=== PATIENT | male | born 1940 | race Caucasian/White ===

== ENCOUNTER 2016-06-02 02:41 | Emergency (ER) | payer MEDICARE ==
[2016-06-02 03:28] LABS: Hematocrit 42.4 % (42.0-52.0); Hemoglobin 14.3 gm/dL (13.5-18.0); Mean Cell Volume 93.2 fl (78-100); Mean Corpuscular Hemoglobin 31.4 pg (27-31); Mean Corpuscular Hgb Conc 33.7 g/dl (32-36); Neutrophil # 7.4 K/mm3 (1.3-6.0); Neutrophil % 77.4 % (42-75.0); Platelet Count 240 K/mm3 (150-450); Red Blood Count 4.55 M/mm3 (4.7-6.0); Red Cell Distribution Width 12.6 % (11.5-14.0); White Blood Count 9.5 K/mm3 (4.0-10.5)
[2016-06-02 03:49] LABS: Albumin * 3.3 gm/dl (3.4-5.0); Anion Gap 11.8 mmol/L (6.8-13.8); BUN/Creatinine Ratio 12.1 (9.0-21.6); Bilirubin, Total 0.6 mg/dL (0.0-1.1); Ca. Corrected For Albumin 8.7 mg/dL (8.4-10.2); Calcium * 8.5 mg/dL (7.9-10.9); Carbon Dioxide 27.5 mmol/L (24-32.6); Potassium 3.3 mmol/L (3.4-4.6); Total Protein 6.7 gm/dL (6.2-8.2)
[2016-06-02] MEDS ORDERED: DIPHTH,PERTUSS(ACELL),TET VAC 0.5 ML VIAL IM ONE ×2 (04:08→04:23)
--- NOTE | 2016-06-02 04:20 | ERNOTE ---
Trauma/Assault HPI - Narrative Date of Service: 06/02/16 - General Stated Complaint: FALL Time Seen by Provider: 06/02/16 02:45 Source: patient, family - Immun/Allergies/Home Medications Immunizations: IMMUNIZATION HX Immunizations Up to Date No History of Influenza Vaccine No Hx Pneumococcal Vaccination No Allergies/Adverse Reactions: Allergies No Known Drug Allergies Allergy (Verified 06/02/16 02:58) Home Medications: HOME MEDICATIONS Aspirin [Aspirin EC] 81 mg PO DAILY 06/02/16 [Last Taken Unknown] Lisinopril/Hydrochlorothiazide [Zestoretic 20-25 mg Tablet] 1 each PO DAILY 01/09 [Last Taken Unknown] - History of Present Illness Narrative: pt states he stumbled and fell tonight when he got up to take the dog out. He stepped out of his back door and stumbled. Denies any headache or dizziness. Has no symptoms except a few abrasions Review of Systems - Review of Systems Constitutional: Present: no symptoms reported EYE: Present: no symptoms reported ENT: Present: no symptoms reported Respiratory: Present: no symptoms reported Cardiology: Present: no symptoms reported Gastrointestinal/Abdominal: Present: no symptoms reported Genitourinary: Present: no symptoms reported Musculoskeletal: Present: no symptoms reported Skin: Present: other - abrasions from fall Neurological: Present: other - patient's states patient's balance has been deteriorating in the past two weeks. - Patient's Past Medical History Patient History - Medical: History Unknown Patient History - Cardiac/Respiratory: Hypertension Patient History - Cancer: History Unknown Patient History - Surgical Procedures: Colonoscopy, T & A Patient History - Other: None - Social History Living Situations: spouse Smoking Status: Former smoker Have you smoked in the past 12 months: No Alcohol Use: heavy Drug Use: none - Immunizations Immunizations Up to Date: No Hx Pneumococcal Vaccination: No History of Influenza Vaccine: No Physical Exam - Physical Exam General Appearance: Present: wd/wn, alert, no apparent distress Eye Exam: Normal inspection: bilateral, PERRL: bilateral, EOMI: bilateral Ears, Nose, Throat: Present: normal ENT inspection Respiratory: Present: no respiratory distress, normal breath sounds, no accessory muscle use, chest nontender, lungs clear Cardiovascular/Chest: Present: regular rate, rhythm, no murmur, normal peripheral pulses Gastrointestinal/Abdominal: Present: normal bowel sounds Extremity Exam: Present: normal inspection, normal range of motion Neurological Exam: Present: alert, other - pt is alert to self and place but NOT to time, he has no dysarthria or ataxia. he is well able to ambulate. he has no focal neurological deficits ED Progress - Results and Orders Patient's Lab Results:: I have reviewed the patient's lab results. - Vital Signs Patient's Vital Signs:: I have reviewed the patient's vital signs. Vital Signs: Vital Signs 06/02/16 02:44 Temperature 36.5 C Pulse Rate 92 Respiratory 14 Rate Blood Pressure 144/82 O2 Sat by Pulse 94 Oximetry - Progress/Reassessment Chief Complaint: Fall Plan - Plan Plan: head CT is negative. Labs are normal. PT's chest Xray is normal. He is stable to be discharged after dressing his abrasions and an Adacel Departure Clinical Impression: Abrasion, Fall (on) (from) other stairs and steps, initial encounter - Departure Disposition: Home self-care Condition: Good Instructions: Fall Prevention in the Home, [id number] Referrals: Matt Rodriguez MD [Primary Care Provider] -
[2016-06-02 04:57] VITALS: BP 138/80
== END 2016-06-02 04:55 | disposition home or self-care (01) ==
LOC: ER 02:41
DX: S20.319A Abrasion of unspecified front wall of thorax, initial encounter (principal); S40.811A Abrasion of right upper arm, initial encounter; W01.0XXA Fall on same level from slipping, tripping and stumbling without subsequent striking against object, initial encounter; Y92.009 Unspecified place in unspecified non-institutional (private) residence as the place of occurrence of the external cause; I10 Essential (primary) hypertension; Z87.891 Personal history of nicotine dependence; Z23 Encounter for immunization
CPT/HCPCS: 36415; 70450; 71010; 80053; 85025; 90471; 90715; 99282; G0481

== ENCOUNTER 2016-07-14 07:25 | Inpatient (IN) | payer MEDICARE ==
--- NOTE | 2016-07-14 07:36 | ERNOTE ---
<Augustin Pisano - Last Filed: 07/14/16 07:54> Neuro HPI ER Record Presenting Symptoms: falling, other - found on the floor this morning Time Seen by Provider: 07/14/16 07:29 Source: EMS Exam Limitations: dementia Immunizations: IMMUNIZATION HX Immunizations Up to Date No History of Influenza Vaccine No Hx Pneumococcal Vaccination No Allergies/Adverse Reactions: Allergies Allergy/AdvReac Type Severity Reaction Status Date / Time No Known Drug Allergies Allergy Verified 07/14/16 07:31 Home Medications: HOME MEDICATIONS Aspirin [Aspirin EC] 81 mg PO DAILY 06/02/16 [Last Taken Unknown] Lisinopril/Hydrochlorothiazide [Zestoretic 20-25 mg Tablet] 1 each PO DAILY 01/09 [Last Taken Unknown] Garlic 200 mg PO DAILY 07/14/16 [Last Taken Unknown] Gluc Workman/Chondro Workman A/Vit C/Mn [Glucosamine 1,500 Complex Cp] 1 each PO DAILY [Last Taken Unknown] Multivitamin [Multivitamins] 1 each PO DAILY 07/14/16 [Last Taken Unknown] - History of Present Illness Narrative: Pt was found on the floor and could not get up this morning. Pt does not know when he fell. Pt vomited sometime since falling Onset: cannot confirm onset Severity: mild Context: fall - Character of Deficits Baseline Cognition: Present: alert but confused Review of Systems - Narrative Narrative: Pt confused and did not admit to much but may not be reliable - Patient's Past Medical History Patient History - Medical: History Unknown Patient History - Cardiac/Respiratory: Hypertension Patient History - Cancer: History Unknown Patient History - Surgical Procedures: Colonoscopy, T & A Patient History - Other: None - Social History Living Situations: spouse Alcohol Use: heavy Drug Use: none - Immunizations Immunizations Up to Date: No Hx Pneumococcal Vaccination: No History of Influenza Vaccine: No Physical Exam - Physical Exam General Appearance: Present: wd/wn, alert, no apparent distress Eye Exam: Normal inspection: bilateral Ears, Nose, Throat: Present: normal except -, other - lips dry with possible dried blood Neck: Present: normal inspection, nontender Respiratory: Present: no respiratory distress, normal breath sounds, chest nontender, lungs clear Cardiovascular/Chest: Present: regular rate, rhythm Gastrointestinal/Abdominal: Present: normal bowel sounds, nontender, nondistended Back Exam: Present: normal inspection, normal range of motion Extremity Exam: Present: normal range of motion, pelvis stable, pedal edema - bilateral Neurological Exam: Present: alert, disoriented to time, disoriented to place Skin Exam: Present: normal color, warm/dry Lymphatic Exam: Present: no adenopathy ED Progress - Transfer of Care Physician Sign Out: Augustin Pisano Receiving Physician: Fred Ortega Pending Results: CT/MRI results, Labs Expected Disposition: Admit Departure Clinical Impression: Syncope Qualifiers: Syncope type: unspecified Qualified Code(s): R55 - Syncope and collapse GI bleeding Qualifiers: GI bleed type/associated pathology: unspecified gastrointestinal hemorrhage type Qualified Code(s): K92.2 - Gastrointestinal hemorrhage, unspecified Alcohol withdrawal Qualifiers: Complication of substance-induced condition: with unspecified complication Qualified Code(s): F10.239 - Alcohol dependence with withdrawal, unspecified - Departure Disposition: [facility] Condition: Good <Fred Ortega - Last Filed: 07/14/16 09:45> Neuro HPI ER Record Date of Service: 07/14/16 Presenting Symptoms: falling, other Source: patient, family - Exam Limitations: no limitations Immunizations: IMMUNIZATION HX Immunizations Up to Date No History of Influenza Vaccine No Hx Pneumococcal Vaccination No - History of Present Illness Narrative: Patient who uses alcohol regularly and stop using alcohol 2 days ago was found in the floor at 03:00am by his . Patient was reported been vomiting blood in the last 48hrs and last week had an event of black stools. Patient has Hx of seizures in the pass and has been having problems with his memory according to his . Patient at the moment denies any pain. Date (Duration): 07/14/16 Time (Timing): 03:00 Onset: gone now, better, >3 hours Severity: mild Context: fall - Character of Deficits New weakness: Present: general (diffuse) Additional Deficits: Present: decrease ability to walk, falling, weakness. Absent: vision problems, impaired speech, difficulty swallowing Baseline Cognition: Present: alert but confused - Patient is having problems with concentration according to Baseline Gait: Present: unable to walk Associated Symptoms: Reports: confused, trouble concentrating, trouble thinking. Denies: fever/chills, sweating, chest pain, neck/back pain, headache , seizure, disoriented, agitated, unresponsive Prior Treament: Reports: recently seen - Patient is been evaluated for dementia. Review of Systems - Review of Systems Constitutional: Present: weakness, malaise. Absent: fever, chills, diaphoresis EYE: Present: no symptoms reported ENT: Present: no symptoms reported Respiratory: Absent: shortness of breath, cough, orthopnea, wheezing Cardiology: Present: syncope. Absent: chest pain, palpitations, edema, claudication Gastrointestinal/Abdominal: Present: vomiting - blood, other - Patient has been with black stools. Absent: nausea, diarrhea, constipation, abdominal pain, eating less Genitourinary: Present: no symptoms reported. Absent: hematuria Musculoskeletal: Present: no symptoms reported Skin: Present: no symptoms reported Neurological: Present: weakness, numbness. Absent: anxiety, depressed, headache , dizziness/light-headedness, seizure, tremors Endocrine: Present: no symptoms reported Hematologic/Lymphatic: Present: no symptoms reported Psych: Present: no symptoms reported All Other Systems: All systems neg except as marked - Social History Alcohol Use: heavy Physical Exam - Physical Exam General Appearance: Present: wd/wn, alert, no apparent distress Eye Exam: Normal inspection: bilateral, PERRL: bilateral, EOMI: bilateral Ears, Nose, Throat: Present: normal pharynx, dry mucous membranes, other. Absent: pharyngeal erythema, pharyngeal swelling Neck: Present: normal inspection, nontender, full range of motion, other - No pain on the posterior neck area on palpation Respiratory: Present: no respiratory distress, normal breath sounds, chest nontender, lungs clear Cardiovascular/Chest: Present: no murmur, normal peripheral pulses, tachycardia. Absent: JVD Gastrointestinal/Abdominal: Present: normal bowel sounds, nontender, nondistended Rectal Exam: Present: nontender, normal rectal tone, other - No gross blood on glove found Male Genitals Exam: Present: normal genitalia Back Exam: Present: normal inspection, normal range of motion, no vertebral tenderness Extremity Exam: Present: normal inspection, normal range of motion, pelvis stable, pedal edema. Absent: bony tenderness Neurological Exam: Present: alert, normal mood/affect, no motor/sensory deficits , normal cerebellar test, disoriented to time. Absent: motor weakness Skin Exam: Present: normal color, warm/dry. Absent: diaphoresis, cyanosis, jaundice, pallor Lymphatic Exam: Present: no adenopathy Crowley Coma Scale - Assess Eye Opening: Spontaneous Motor: Obeys Commands Verbal: Oriented - Total Coma Scale Total: 15 Initial Stroke Assessment - Date/Time of assessment Stroke Scale Date: 07/14/16 Stroke Scale Time: 08:34 - NIH Stroke Scale Level of Consciousness: Alert LOC Questions (Year and Age): Answers both correctly LOC Commands (open/close eyes/fist): Performs both correctly Lateral Gaze Paresis: None Visual Field Loss: No visual loss Facial Palsy: Normal movement Right Arm Motor (10 sec hold): No drift Left Arm Motor (10 sec hold): No drift Right Leg Motor (5 sec hold): No drift Left Leg Motor (5 sec hold): No drift Limb Ataxia (finger/nose heel/ho): Absent Sensory Loss (pinprick arms/legs/face): No sensory loss Language Aphasia (description/naming/reading): No aphasia; normal Dysarthria (speech clarity): Normal articulation Neglect Inattention (visual/tactile/auditory/spatial/person): No neglect Initial Stroke Scale Score:: 0 Stroke Inclusion/Exclusion Cri - Exclusion Questions: NIHSS Score <4 or >22 performed by physician: Yes - Total NIHSS Score Score:: 0 ED Progress - Date and Time Seen: Date and Time: 07/14/16 08:42 Patient with adnormal Abdomen X-ray: At this point patient is obese, no pain on palpation, no guarding and no rebound. Patient will be done CT. Patient at the moment is not vomiting. Patient with a suspected withdrawal and GI Bleeding could be due to liver disease an alcohol misuse. 07/14/16 09:43 Patient is with no distress. Patient with a FMS and GCS: 15/15. Patient has been presented to Hospitalist Service and accepted on admission. Patient case was presented to Sx special education classroom aide who will follow patient. Patient at the moment is in no distress. - Results and Orders Patient's Lab Results:: I have reviewed the patient's lab results. Results and Orders: CBC: Normal Hgb CMP: No elevation on BUN found Trop: Negative APAP/Sali: Negative UA: Was not collected at ER is to be follow by Inpatient Team - Vital Signs Patient's Vital Signs:: I have reviewed the patient's vital signs. Vital Signs: Vital Signs 07/14/16 07/14/16 07:26 07:34 Temperature 36.6 C Pulse Rate 62 61 Respiratory 14 16 Rate Blood Pressure 128/78 128/78 O2 Sat by Pulse 95 96 Oximetry - EKG EKG read: Interp. by me EKG Comments: HR: 56, S. Mynor, 1st degree AV block, No ST Elevation. Changed from previous EKG - X-Ray X-Ray #1 X-Ray: chest X-ray Comments: No pathology reported by radiologist X-Ray #2 X-Ray: abdomen X-ray Comments: Early Partial Small Bowel Obstruction - CT/Ultrasound CT/Ultrasound Narrative: Head CT: Movement, no gross pathology reported, sinus disease. CT is to be repeated! - Progress/Reassessment Progress:: Improved - Transfer of Care Expected Disposition: Admit Plan - Plan Plan: Admission. Patient will be consulted to Sx special education classroom aide due to GI Bleeding and Hospitalist.
[2016-07-14 07:53] LABS: Hematocrit 41.6 % (42.0-52.0); Hemoglobin 13.8 gm/dL (13.5-18.0); Mean Cell Volume 93.3 fl (78-100); Mean Corpuscular Hemoglobin 30.9 pg (27-31); Mean Corpuscular Hgb Conc 33.2 g/dl (32-36); Mean Platelet Volume 8.9 fl (6.0-9.5); Neutrophil # 7.6 K/mm3 (1.3-6.0); Neutrophil % 76.3 % (42-75.0); Platelet Count 227 K/mm3 (150-450); Red Blood Count 4.46 M/mm3 (4.7-6.0); Red Cell Distribution Width 13.2 % (11.5-14.0)
[2016-07-14 08:04] LABS: Albumin * 3.3 gm/dl (3.4-5.0); Anion Gap 10.7 mmol/L (6.8-13.8); BUN/Creatinine Ratio 12.1 (9.0-21.6); Bilirubin, Total 0.6 mg/dL (0.0-1.1); Ca. Corrected For Albumin 9.1 mg/dL (8.4-10.2); Calcium * 8.9 mg/dL (7.9-10.9); Carbon Dioxide 31.2 mmol/L (24-32.6); Potassium 3.9 mmol/L (3.4-4.6)
[2016-07-14 08:21] LABS: Salicylate Less than 2.8 mg/dL (2.8-20.0)
[2016-07-14] MEDS ORDERED: PANTOPRAZOLE SODIUM 40 MG in NORMAL SALINE 100 ML IV ONE (08:21)
[2016-07-14] MEDS ORDERED: THIAMINE HCL 100 MG in NORMAL SALINE 50 ML IV ONE (08:21)
[2016-07-14] MEDS ORDERED: ONDANSETRON HCL/PF 2 MG/ML VIAL IV ONE (08:21)
[2016-07-14] MEDS ORDERED: LORazepam 2 MG/ML DISP.SYRIN IV ONE ×2 (08:21→21:48)
[2016-07-14] MEDS ORDERED: NORMAL SALINE 2,000 ML IV ONE (08:21)
[2016-07-14 08:24] LABS: Troponin I Less than 0.017 ng/ml (0.00-0.10)
[2016-07-14] MEDS ORDERED: LORazepam 2 MG/ML DISP.SYRIN ONE (08:36)
[2016-07-14] MEDS ORDERED: ONDANSETRON HCL/PF 2 MG/ML VIAL ONE (08:36)
[2016-07-14] MEDS ORDERED: PANTOPRAZOLE SODIUM 80 MG in NORMAL SALINE 100 ML IV ONE (09:00)
[2016-07-14] MEDS ORDERED: LORazepam 2 MG/ML DISP.SYRIN IV PRN ×2 (10:40)
[2016-07-14 11:58] LABS: Hematocrit 39.5 % (42.0-52.0)
[2016-07-14] MEDS: NORMAL SALINE 1,000 ML IV PRN ×2 (13:16→22:03)
--- NOTE | 2016-07-14 13:39 | HP ---
Chief Complaint - Chief Complaint Date of Service: 07/14/16 Time of Service: 11:25 Chief Complaint: GI bleeding, weakness, mental status changes History of Present Illness: Mak is a 76 year old male with a PMH of HTN and etoh abuse that was taken to the ER this am after his found him on the floor of their bedroom at 0300 this morning confused. indicates that patient has been having black, tarry stools for the past 2 months with intermittent vomiting of bright red blood. Overnight, patient had 2 bowel movements that his describes having "a lot of blood in them". also indicates that patient has been vomiting blood for the past 48 hours. Patient has a significant history of etoh abuse, drinking 12 or more beers a day for 10+ years. and daughter indicate that when patient cut back on drinking a month ago due to not feeling well, he started having intermittent seizures. ER evaluation revealed chest xray that is non-acute, stable hgb, normal etoh level, and ct of the head that was negative for any acute changes. - Patient's Past Medical History Patient History - Medical: History Unknown Patient History - Cardiac/Respiratory: Hypertension Patient History - Cancer: No Hx of Cancer Patient History - Surgical Procedures: Colonoscopy, T & A Patient History - Other: None - Family History Mother Family History - Medical: Family History - Cardiac/Respiratory: Hypertension Family History - Cancer: Breast Father Family History - Cancer: Lung - Social History Living Situations: spouse Abuse History: No History of abuse Psych History: No pertinent hx Smoking Status: Former smoker Have you smoked in the past 12 months: No Do you dip or chew tobacco: No Smoking Stop Date: 03/26/89 Patient requests Smoking Cessation Consult: No Initiate information on Smoking Cessation: No Alcohol Use: heavy Drug Use: none - Immunizations Immunizations Up to Date: No Hx Pneumococcal Vaccination: No History of Influenza Vaccine: No Review Of Systems (GEN) - Review of Systems Generalized/Overall Review: Present: Weakness EENTM: Present: No Symptoms Reported Respiratory: Present: No Symptoms Reported Cardiac: Present: No Symptoms Reported Abdominal: Present: Vomiting, Hematemesis. Absent: Abdominal Pain Genitourinary: Present: No Symptoms Reported Musculoskeletal: Present: No Symptoms Reported Neurological: Present: No Symptoms Reported Skin: Present: No Symptoms Reported Endocrine: Present: No Symptoms Reported Misc: All systems neg except as marked Allergies/Adverse Reactions: Allergies Allergy/AdvReac Type Severity Reaction Status Date / Time No Known Drug Allergies Allergy Verified 07/14/16 07:31 Home Medications: HOME MEDICATIONS Aspirin [Aspirin EC] 81 mg PO DAILY 06/02/16 [Last Taken Unknown] Lisinopril/Hydrochlorothiazide [Zestoretic 20-25 mg Tablet] 1 each PO DAILY 01/09 [Last Taken Unknown] Garlic 200 mg PO DAILY 07/14/16 [Last Taken Unknown] Gluc Workman/Chondro Workman A/Vit C/Mn [Glucosamine 1,500 Complex Cp] 1 each PO DAILY [Last Taken Unknown] Multivitamin [Multivitamins] 1 each PO DAILY 07/14/16 [Last Taken Unknown] Exam - Exam Vital Signs: Vital Signs - Last Taken Temp 36.7 C 07/14/16 10:46 Pulse 65 07/14/16 10:46 Resp 18 07/14/16 10:46 BP 142/85 07/14/16 10:46 Pulse Ox 98 07/14/16 10:46 Constitutional: Present: Alert, Oriented x3, No distress ENT Exam: Present: hearing grossly normal Eye Exam: bilateral eye: normal inspection Neck: Present: full range of motion, supple Back Exam: Present: normal inspection Breasts: Present: Exam deferred Respiratory: Present: chest non-tender, lungs clear, normal breath sounds, no respiratory distress Cardiovascular/Chest: Present: normal peripheral pulses, regular rate, rhythm, no chest tenderness, edema - +1 lower extremity edema bilat Peripheral Pulses: carotid (R): 2+, carotid (L): 2+, dorsalis-pedis (R): 2+, dorsalis-pedis (L): 2+, radial (R): 2+, radial (L): 2+ Abdomen: Present: nontender, other - hyperactive bowel sound, distended /Rectal: Present: Exam deferred Extremity: Present: non-tender, lower extremity edema - +1 lower extremity edema bilat Skin Exam: Present: warm/dry, no cyanosis, pallor Neurologic: Present: alert, oriented x 3 Diagnostic Studies: Abnormal Lab Results 07/14/16 Range/Units 11:55 Hgb 13.0 L (13.5-18.0) gm/dL Hct 39.5 L (42.0-52.0) % Laboratory Results WBC 10.0 K/mm3 (4.0-10.5) 07/14/16 07:45 RBC 4.46 M/mm3 (4.7-6.0) L 07/14/16 07:45 Hgb 13.0 gm/dL (13.5-18.0) L 07/14/16 11:55 Hct 39.5 % (42.0-52.0) L 07/14/16 11:55 MCV 93.3 fl (78-100) 07/14/16 07:45 MCH 30.9 pg (27-31) 07/14/16 07:45 MCHC 33.2 g/dl (32-36) 07/14/16 07:45 RDW 13.2 % (11.5-14.0) 07/14/16 07:45 Plt Count 227 K/mm3 (150-450) 07/14/16 07:45 MPV 8.9 fl (6.0-9.5) 07/14/16 07:45 Immature Gran % (Auto) 0.20 % (0.001-0.429) 07/14/16 07:45 Immature Gran # (Auto) 0.02 K/mm3 (0.000-0.0310) 07/14/16 07:45 Neutrophils % 76.3 % (42-75.0) H 07/14/16 07:45 Lymphocytes % 14.8 % (20-51) L 07/14/16 07:45 Monocytes % 8.3 % (0.0-9) 07/14/16 07:45 Eosinophils % 0.1 % (0.0-3.0) 07/14/16 07:45 Basophils % 0.3 % (0.0-1.0) 07/14/16 07:45 Nucleated RBC % 0.0 k/mm3 (0-1) 07/14/16 07:45 Neutrophils # 7.6 K/mm3 (1.3-6.0) H 07/14/16 07:45 Lymphocytes # 1.5 k/mm3 (1.5-3.5) 07/14/16 07:45 Monocytes # 0.8 k/mm3 (0.0-1.0) 07/14/16 07:45 Eosinophils # 0.0 k/mm3 (0.0-0.7) 07/14/16 07:45 Absolute Basophils 0.0 k/mm3 (0.0-0.1) 07/14/16 07:45 Sodium 142 mmol/L (132-142) 07/14/16 07:45 Plasma Sodium 142 mmol/L (130-142) 07/14/16 07:45 Potassium 3.9 mmol/L (3.4-4.6) 07/14/16 07:45 Chloride 104 mmol/L (97-106) 07/14/16 07:45 Carbon Dioxide 31.2 mmol/L (24-32.6) 07/14/16 07:45 Anion Gap 10.7 mmol/L (6.8-13.8) 07/14/16 07:45 BUN 14 mg/dL (6-23) 07/14/16 07:45 Creatinine 1.16 mg/dL (0.4-1.4) 07/14/16 07:45 Est GFR (Non-Af Amer) 65 mL/min (60-130) 07/14/16 07:45 BUN/Creatinine Ratio 12.1 (9.0-21.6) 07/14/16 07:45 Random Glucose 120 mg/dL (70-110) H 07/14/16 07:45 Calcium 8.9 mg/dL (7.9-10.9) 07/14/16 07:45 Calcium Adj for Albumin 9.1 mg/dL (8.4-10.2) 07/14/16 07:45 Magnesium 1.9 mg/dL (1.2-2.8) 07/14/16 07:45 Total Bilirubin 0.6 mg/dL (0.0-1.1) 07/14/16 07:45 AST 26 U/L (0-48) 07/14/16 07:45 ALT 26 U/L (19-67) 07/14/16 07:45 Alkaline Phosphatase 58 U/L (50-170) 07/14/16 07:45 Troponin I Less than 0.017 ng/ml (0.00-0.10) 07/14/16 08:03 Total Protein 7.0 gm/dL (6.2-8.2) 07/14/16 07:45 Albumin 3.3 gm/dl (3.4-5.0) L 07/14/16 07:45 Salicylates Less than 2.8 mg/dL (2.8-20.0) L 07/14/16 08:03 Acetaminophen Less than 0.2 mcg/mL (10.0-30.0) L 07/14/16 08:03 Ethyl Alcohol 3.0 mg/dL (0.0-10.0) 07/14/16 08:03 Blood Type B Negative 07/14/16 08:45 Antibody Screen Negative 07/14/16 08:45 Assessment/Plan - Narrative Narrative: GI bleed - keep NPO - cont IV fluids - given protonix / vitamin B1 IV in the ER - spoke with surgery who plans EGD today - monitor on tele, vital signs q4 hours. Confusion - likely multi-factorial, including gi bleed, etoh use / possible recent withdrawal, vs alcohol encephlopathy - etoh withdrawal protocol order, seizure protocol ordered. - bed alarm, room close to nurses station for close monitoring. - check ammonia level. - reassess in am etoh abuse - may have possible gone through withdrawal already due to family report of seizures - withdrawal protocol in place. - check labs in am Chronic issues: Htn: continue home meds, vital signs q4 hours. Code status: Full Code GI proph: IV protonix given in ER. VTE: no pharmacologic due to GI bleed, harmeet clarke - Assessment/Plan (1) Confusion Problem: Acute (2) Alcohol abuse Problem: Acute (3) GI bleeding Problem: Acute Qualifiers: GI bleed type/associated pathology: unspecified gastrointestinal hemorrhage type Qualified Code(s): K92.2 - Gastrointestinal hemorrhage, unspecified
[2016-07-14 14:22] LABS: Cocaine Ur Negative (NEGATIVE); Urine Barbiturate Negative (NEGATIVE); Urine Benzodiazepines Negative (NEGATIVE); Urine Opiates Negative (NEGATIVE); Urine PCP Negative (NEGATIVE); Urine THC Negative (NEGATIVE)
[2016-07-14 14:53] LABS: Urine Appearance Clear; Urine Bacteria None Seen; Urine Bilirubin Negative (NEGATIVE); Urine Blood Negative /ul (NEGATIVE); Urine Color Yellow; Urine Ketone Negative (NEGATIVE); Urine Nitrite Negative (NEGATIVE); Urine Protein Negative (NEGATIVE); Urine RBC None Seen /hpf (0-5); Urine Specific Gravity 1.015 SP.GR. (1.005-1.030); Urine Urobilinogen Normal (NORMAL); Urine WBC 0-5 /hpf (0-5)
[2016-07-14] MEDS ORDERED: NORMAL SALINE 1,000 ML IV ONE (15:00)
--- NOTE | 2016-07-14 15:29 | CONS ---
[facility] - General Date of Service: 07/14/16 Narrative: Pt presents to ER after syncopal episode. Possible alcohol withdrawal seizures with complaints of recent hematemesis and several weeks of tarry stools. I have been asked to perform upper endoscopy to rule out upper GI pathology. Source: patient, RN/MD, old records Exam Limitations: no limitations - History of Present Illness Allergies/Adverse Reactions: Allergies No Known Drug Allergies Allergy (Verified 07/14/16 14:31) Home Medications: Home Medications Medication Instructions Recorded Last Taken Aspirin [Aspirin EC] 81 mg PO DAILY 06/02/16 Unknown Lisinopril/Hydrochlorothiazide 1 each PO DAILY 06/02/16 Unknown [Zestoretic 20-25 mg Tablet] Garlic 200 mg PO DAILY 07/14/16 Unknown Gluc Workman/Chondro Workman A/Vit C/Mn 1 each PO DAILY 07/14/16 Unknown [Glucosamine 1,500 Complex Cp] Multivitamin [Multivitamins] 1 each PO DAILY 07/14/16 Unknown - Patient's Past Medical History Patient History - Medical: History Unknown Patient History - Cardiac/Respiratory: Hypertension Patient History - Cancer: No Hx of Cancer Patient History - Surgical Procedures: Colonoscopy, T & A Patient History - Other: None - Family History Mother Family History - Medical: Family History - Cardiac/Respiratory: Hypertension Family History - Cancer: Breast Father Family History - Cancer: Lung - Social History Living Situations: spouse Abuse History: No History of abuse Psych History: No pertinent hx Smoking Status: Former smoker Have you smoked in the past 12 months: No Do you dip or chew tobacco: No Smoking Stop Date: 03/26/89 Patient requests Smoking Cessation Consult: No Initiate information on Smoking Cessation: No Alcohol Use: heavy Drug Use: none - Immunizations Immunizations Up to Date: No Hx Pneumococcal Vaccination: No History of Influenza Vaccine: No Procedures COLONOSCOPY (08/23/06) Medications - Medications Current Medications: Current Medications Sodium Chloride (Sodium Chloride 0.9%) 1,000 mls @ 100 mls/hr IV .Q10H PRN PRN Reason: HYDRATION Stop: 08/13/16 11:47 Last Admin: 07/14/16 13:16 Dose: 100 mls/hr Physical Examination - Exam Vital Signs: Vital Signs - Last Taken Temp 36.9 C 07/14/16 14:34 Pulse 60 07/14/16 14:34 Resp 18 07/14/16 14:34 BP 138/75 07/14/16 14:34 Pulse Ox 96 07/14/16 14:34 O2 Oxygen Delivery Method Room Air Constitutional: Present: Alert, Oriented x3, Cooperative, No distress, Morbidly obese ENT Exam: Present: other - rhinophyma Eye Exam: bilateral eye: normal inspection Neck: Present: normal inspection Respiratory: Present: no respiratory distress, no accessory muscle use Abdomen: Present: soft, nontender, nondistended, no hepatospenomegaly, no masses , obese /Rectal: Present: Exam deferred Skin Exam: Absent: jaundice Neurologic: Present: no motor/sensory deficits - Results and Findings: Lab/Microbiology results last 24 hrs: Abnormal/Pending Laboratory Last 24 HRS 07/14/16 07/14/16 11:55 10:25 Hgb 13.0 L Hct 39.5 L Ur Leukocyte Esterase 25 H - Assessments/Findings (1) GI bleeding Diagnosis(s): Plan: EGD. The options, risks, and benefits of the procedure were reviewed with the patient fully. He seems to understand, asks appropriate questions, and desires to proceed. Problem: Acute Qualifiers: GI bleed type/associated pathology: unspecified gastrointestinal hemorrhage type Qualified Code(s): K92.2 - Gastrointestinal hemorrhage, unspecified
--- NOTE | 2016-07-14 15:38 | OR ---
Operative Report - Dictated Report Narrative: Date: 07/14/16 Preop dx: 1. Hematemesis 2. melena Postop dx: 1. Lesion at the base of the tongue 2. Chemical gastritis 3. Small hiatal hernia Procedure: EGD with CLOtest and Biopsy of antrum Staff surgeon: Aaron Patel MD Proctoring surgeon: Kenzie Gayle MD Anesthesia: MAC per SUPERVISOR CHANNEL PROCESS EBL: Minimal Description: Informed consent was obtained. Pt placed in supine position and bite block inserted. IV sedation per SUPERVISOR CHANNEL PROCESS. Endoscope was inserted through bite block. A polypoid lesion was noted at the base of the tongue. Scope was advanced through the posterior pharynx, esophagus, stomach, and into the duodenum. The duodenum was normal. Scope withdrawn into stomach. Gastritis noted. CLOtest biopsy performed. Additional biopsy of antrum for anatomic path. Retroflex showed small hiatal hernia. Scope withdrawn into esophagus and no abnormalities are noted. Patient tolerated the procedure well without apparent complications and was discharged from the endoscopy suite in stable condition to his room on the floor.
[2016-07-14 16:21] LABS: Hematocrit 38.6 % (42.0-52.0); Hemoglobin 12.7 gm/dL (13.5-18.0)
[2016-07-14] MEDS: MULTIVITAMINS 1 CAP CAPSULE PO SCH (19:46)
[2016-07-14] MEDS: FOLIC ACID 1 MG TABLET PO SCH (19:47)
[2016-07-14] MEDS: THIAMINE HCL 100 MG TABLET PO SCH (19:47)
[2016-07-14 20:01] LABS: Hematocrit 37.6 % (42.0-52.0); Hemoglobin 12.6 gm/dL (13.5-18.0)
[2016-07-14] MEDS: LORazepam 2 MG/ML DISP.SYRIN IV PRN (21:56)
[2016-07-14 23:33] LABS: Hematocrit 36.5 % (42.0-52.0); Hemoglobin 12.3 gm/dL (13.5-18.0)
[2016-07-15] MEDS ORDERED: ALBUTEROL SULFATE 2.5 MG/0.5 ML VIAL.NEB IH PRN (00:05)
[2016-07-15] MEDS ORDERED: ALBUTEROL SULFATE 2.5 MG/3 ML VIAL.NEB IH PRN (00:21)
[2016-07-15] MEDS: HYDROcodone/ACETAMINOPHEN 1 EACH TABLET PO PRN ×2 (02:42→09:02)
[2016-07-15] MEDS: LORazepam 2 MG/ML DISP.SYRIN IV PRN (02:47)
[2016-07-15 05:29] LABS: Hematocrit 37.7 % (42.0-52.0); Hemoglobin 12.5 gm/dL (13.5-18.0); Mean Cell Volume 92.6 fl (78-100); Mean Corpuscular Hemoglobin 30.7 pg (27-31); Mean Corpuscular Hgb Conc 33.2 g/dl (32-36); Mean Platelet Volume 9.2 fl (6.0-9.5); Neutrophil # 6.7 K/mm3 (1.3-6.0); Neutrophil % 71.4 % (42-75.0); Platelet Count 214 K/mm3 (150-450); Red Blood Count 4.07 M/mm3 (4.7-6.0); Red Cell Distribution Width 13.4 % (11.5-14.0); White Blood Count 9.3 K/mm3 (4.0-10.5)
[2016-07-15 05:33] LABS: BUN/Creatinine Ratio 11.1 (9.0-21.6); Calcium * 8.3 mg/dL (7.9-10.9); Estimated Creat Clear 57.2; Potassium 3.4 mmol/L (3.4-4.6)
[2016-07-15 05:49] LABS: Anion Gap 12.8 mmol/L (6.8-13.8); Carbon Dioxide 26.6 mmol/L (24-32.6)
[2016-07-15 06:11] LABS: Total Cells Counted 100
[2016-07-15 06:14] LABS: Atypical (Reactive) Lymph 7 % (0-2); Eosinophil 2 % (0-3); Lymphocyte 16 % (20-51); Monocyte 5 % (0-9); Neutrophil 70 % (42-75); Neutrophil # 6.5 K/mm3 (1.3-6.0)
[2016-07-15 06:15] LABS: Platelet Estimate Normal (NORMAL); RBC Morphology Normal (NORMAL)
[2016-07-15] MEDS: FOLIC ACID 1 MG TABLET PO SCH (08:53)
[2016-07-15] MEDS: HYDROCHLOROTHIAZIDE 25 MG TABLET PO SCH (08:53)
[2016-07-15] MEDS: LISINOPRIL 20 MG TABLET PO SCH (08:54)
[2016-07-15] MEDS: THIAMINE HCL 100 MG TABLET PO SCH (08:54)
[2016-07-15] MEDS: MULTIVITAMINS 1 CAP CAPSULE PO SCH (08:54)
[2016-07-15] MEDS: NORMAL SALINE 1,000 ML IV PRN (09:06)
[2016-07-15] MEDS: LORazepam 1 MG TABLET PO SCH ×4 (11:00→23:38)
[2016-07-15] MEDS: ACETAMINOPHEN 325 MG TABLET PO PRN ×2 (14:54→23:12)
--- NOTE | 2016-07-15 18:46 | PN ---
Subjective - Date and Time Seen Date: 07/15/16 Time: 11:26 Subjective Narrative: sleeping in bed, snoring. unable to arose to voice. responds to painful stimuli. at bedside. given ativan overnight for abnormal CIWA score. given hydrocodone for left foot pain. aide indicates pt incontinent in bed. concerned for pt's safety - states patient have been falling frequently at home and is a danger to himself and others. Objective Objective Narrative: EGD done 07/14/16 showed: - lesion at the base of the tongue (work up outpatient) - chemical gastritis - small hiatal hernia. - Review of Systems Generalized/Overall Review: Reports: Weakness - unable to obtain ROS due to patient's condition. - Vitals Vitals: Last Vital Signs Temp 37.5 C 07/15/16 18:22 Pulse 86 07/15/16 18:22 Resp 20 07/15/16 18:22 BP 142/74 07/15/16 18:22 Pulse Ox 93 07/15/16 18:22 - Abnormal Lab Findings Abnormal Lab Findings: 07/14/16 07/15/16 07:45 05:30 WBC 10.0 9.3 Hgb 13.8 12.5 L Hct 41.6 L 37.7 L Plt Count 227 214 Neutrophils % 76.3 H 71.4 07/15/16 07/15/16 05:30 11:24 Sodium 145 H Potassium 3.4 Carbon Dioxide 26.6 BUN 12 Creatinine 1.08 Random Glucose 105 Ammonia Less than 17.0 - Exam Constitutional: Present: Other - arouses to painful stimuli, Elderly, Looks Older than stated age Neck: Present: supple Breasts: Present: Exam deferred Respiratory: Present: no respiratory distress, decreased breath sounds, rhonchi Cardiovascular/Chest: Present: regular rate, rhythm Abdomen: Present: Normal bowel sounds, soft, obese /Rectal: Present: Exam deferred Extremity: Present: normal capillary refill, lower extremity edema - +1 lower extremity edema bilat Skin Exam: Present: warm/dry, no cyanosis, pallor Assessment/Plan Plan Narrative: GI bleed - EGD showed gastritis, no active bleed - cont iv protonix due to inability to take oral meds currently - cont IV fluids - monitor on tele, vital signs q4 hours. Confusion - was improved last night but unable to assess them am due to patient condition. - bed alarm, room close to nurses station for close monitoring. - ammonia level wnl. - plan for SNF when medically stable. etoh abuse - may have possible gone through withdrawal already due to family report of seizures - educated on importance that patient not drink etoh anymore. Chronic issues: Htn: continue home meds, vital signs q4 hours. Code status: Full Code GI proph: IV protonix VTE: no pharmacologic due to GI bleed, harmeet hosnarcisa - Problems/Diagnosis (1) Confusion Problem: Acute (2) Alcohol abuse Problem: Acute (3) GI bleeding Problem: Acute Qualifiers: GI bleed type/associated pathology: unspecified gastrointestinal hemorrhage type Qualified Code(s): K92.2 - Gastrointestinal hemorrhage, unspecified
[2016-07-15] MEDS: PANTOPRAZOLE SODIUM 40 MG in NORMAL SALINE 100 ML IV SCH (19:50)
[2016-07-16] MEDS: LORazepam 1 MG TABLET PO SCH ×2 (03:29→07:26)
[2016-07-16] MEDS: ACETAMINOPHEN 325 MG TABLET PO PRN ×2 (07:19→13:32)
[2016-07-16] MEDS ORDERED: LORazepam 1 MG TABLET PO PRN (07:26)
[2016-07-16 08:21] LABS: Hematocrit 39.6 % (42.0-52.0); Hemoglobin 13.4 gm/dL (13.5-18.0); Mean Cell Volume 92.5 fl (78-100); Mean Corpuscular Hemoglobin 31.3 pg (27-31); Mean Corpuscular Hgb Conc 33.8 g/dl (32-36); Mean Platelet Volume 8.7 fl (6.0-9.5); Platelet Count 222 K/mm3 (150-450); Red Blood Count 4.28 M/mm3 (4.7-6.0); Red Cell Distribution Width 13.3 % (11.5-14.0); White Blood Count 10.6 K/mm3 (4.0-10.5)
[2016-07-16 08:23] LABS: Total Cells Counted 100
[2016-07-16 08:29] LABS: Anion Gap 13.6 mmol/L (6.8-13.8); BUN/Creatinine Ratio 9.7 (9.0-21.6); Calcium * 8.5 mg/dL (7.9-10.9); Carbon Dioxide 27.5 mmol/L (24-32.6); Estimated Creat Clear 49.8; Potassium 3.1 mmol/L (3.4-4.6)
[2016-07-16 08:40] LABS: Band 1 % (0-2.0); Lymphocyte 18 % (20-51); Monocyte 5 % (0-9); Neutrophil 76 % (42-75); Neutrophil # 8.1 K/mm3 (1.3-6.0); Platelet Estimate Normal (NORMAL); RBC Morphology Normal (NORMAL)
[2016-07-16] MEDS: HYDROCHLOROTHIAZIDE 25 MG TABLET PO SCH (08:51)
[2016-07-16] MEDS: MULTIVITAMINS 1 CAP CAPSULE PO SCH (08:51)
[2016-07-16] MEDS: LISINOPRIL 20 MG TABLET PO SCH (08:51)
[2016-07-16] MEDS: FOLIC ACID 1 MG TABLET PO SCH (08:51)
[2016-07-16] MEDS: THIAMINE HCL 100 MG TABLET PO SCH (08:52)
[2016-07-16] MEDS ORDERED: POTASSIUM CHLORIDE 40 MEQ/15 ML BTL PO ONE ×2 (09:16→17:00)
[2016-07-16 11:48] LABS: Urine Appearance Slightly Cloudy; Urine Bilirubin Negative (NEGATIVE); Urine Blood Negative /ul (NEGATIVE); Urine Color Yellow; Urine Ketone 15 mg/dL (NEGATIVE); Urine Nitrite Negative (NEGATIVE); Urine Protein Negative (NEGATIVE); Urine Specific Gravity 1.025 SP.GR. (1.005-1.030); Urine Urobilinogen Normal (NORMAL)
[2016-07-16 11:49] LABS: Urine Bacteria None Seen; Urine RBC None Seen /hpf (0-5); Urine WBC 0-5 /hpf (0-5)
[2016-07-16] MEDS ORDERED: FUROSEMIDE 10 MG/ML VIAL IV ONE (11:49)
[2016-07-16] MEDS: MAGNESIUM OXIDE 400 MG TABLET PO SCH (12:11)
[2016-07-16] MEDS: CHOLECALCIFEROL 5,000 UNIT TABLET PO SCH (12:11)
[2016-07-16] MEDS: CHLORHEXIDINE GLUCONATE 15 ML UDC MM SCH (12:12)
[2016-07-16] MEDS: NAPH,MB-DB/K PH,MBDB 1 PACKET PACKET PO SCH (12:24)
[2016-07-16] MEDS ORDERED: predniSONE 20 MG TABLET PO ONE (14:35)
[2016-07-16] MEDS: traMADol HCL 50 MG TABLET PO PRN (14:57)
[2016-07-16] MEDS: Lytes/Yerba Santa 240 APPL BTL MM SCH ×2 (14:59→19:53)
--- NOTE | 2016-07-16 16:43 | PN ---
Subjective - Date and Time Seen Date: 07/16/16 Time: 11:26 Subjective Narrative: sitting in chair. c/o bilat foot pain - states history of gout. audible wheezing. states he does not want to go to alf. Objective Objective Narrative: EGD done 07/14/16 showed: - lesion at the base of the tongue (work up outpatient) - chemical gastritis - small hiatal hernia. - Review of Systems Generalized/Overall Review: Reports: Weakness, Fever - temp 38.5 at 2330 on 07/15 EENTM: Reports: No Symptoms Reported Respiratory: Reports: Shortness of Breath, Orthopnea, Wheezing Cardiac: Reports: Edema Abdominal: Reports: No Symptoms Reported Genitourinary Symptoms: Reports: No Symptoms Reported Musculoskeletal Complaints: Reports: Joint Pain, Joint Swelling Neurological: Reports: Weakness Skin: Reports: No Symptoms Reported Endocrine: Reports: No Symptoms Reported Misc: All systems neg except as marked - Vitals Vitals: Last Vital Signs Temp 37.6 C H 07/16/16 15:00 Pulse 98 07/16/16 15:00 Resp 20 07/16/16 15:00 BP 135/80 07/16/16 15:00 Pulse Ox 94 07/16/16 15:00 - Abnormal Lab Findings Abnormal Lab Findings: Abnormal Lab Results 07/16/16 07/16/16 07/16/16 Range/Units 08:00 08:05 08:05 WBC 10.6 H (4.0-10.5) K/mm3 RBC 4.28 L (4.7-6.0) M/mm3 Hgb 13.4 L (13.5-18.0) gm/dL Hct 39.6 L (42.0-52.0) % MCH 31.3 H (27-31) pg Neutrophils % (Manual) 76 H (42-75) % Lymphocytes % (Manual) 18 L (20-51) % Neutrophils # (Manual) 8.1 H (1.3-6.0) K/mm3 Plasma Sodium 144 H (130-142) mmol/L Potassium 3.1 L (3.4-4.6) mmol/L Random Glucose 199 H D (70-110) mg/dL Uric Acid 8.4 H (2.6-7.2) mg/dL - Exam Constitutional: Present: Alert, Oriented x3, Obese ENT Exam: Present: hearing grossly normal Neck: Present: full range of motion, supple Breasts: Present: Exam deferred Respiratory: Present: chest non-tender, respiratory distress, rales, rhonchi Cardiovascular/Chest: Present: normal peripheral pulses, regular rate, rhythm Abdomen: Present: soft, nontender, obese /Rectal: Present: Exam deferred Extremity: Present: lower extremity edema - +1 lower extremity edema bilat. Absent: calf tenderness Skin Exam: Present: warm/dry, no cyanosis, pallor Cauti Physician Documentation - Urinary Catheter Management Urethral ([place]oto) Date of Insertion: 07/16/16 Time of Insertion: 14:40 Assessment/Plan Plan Narrative: GI bleed - EGD showed gastritis, hgb stable 13.4 07/16/16 - cont iv protonix - CLOtest negative Confusion - A&O this am. - monitor etoh abuse - may have possible gone through withdrawal already due to family report of seizures - educated on importance that patient not drink etoh anymore. Fluid overload - 4 liters of NS given since admission - IV fluids off since last night, respiratory distress this am. - lasix 80 mg iv today - soto for accurate I&O UTI - prelim urine culture from 07/14/16 showed staph species - start on rocephin 1 gm iv q 24 hours - awaiting final urine culture results. Leukocytosis - likely due to UTI - spiked fever last night at 2330 on 07/15/16 of 38.5 - blood cultures drawn and pending - chest xray done 07/16/16 and negative for acute cardiopulmonary changes. oral thrush - start peridex mouth rinse daily. - ordered q 4 oral cares Gout flare - uric acid elevated at 8.3 on 07/16/16 - prednisone 60 mg given once on 07/16/16 Chronic issues: Htn: continue home meds, vital signs q4 hours. Code status: Full Code GI proph: IV protonix VTE: no pharmacologic due to GI bleed, harmeet hose - Problems/Diagnosis (1) Confusion Problem: Acute (2) Alcohol abuse Problem: Acute (3) GI bleeding Problem: Acute Qualifiers: GI bleed type/associated pathology: gastritis Gastritis type: acute gastritis Qualified Code(s): K29.01 - Acute gastritis with bleeding (4) Fluid overload Problem: Acute Qualifiers: Hypervolemia type: other Qualified Code(s): E87.79 - Other fluid overload (5) Leukocytosis Problem: Acute Qualifiers: Leukocytosis type: unspecified Qualified Code(s): D72.829 - Elevated white blood cell count, unspecified (6) Oral thrush Problem: Acute (7) Gout flare Problem: Acute Qualifiers: Gout site: unspecified site Gout etiology: unspecified cause Qualified Code(s): M10.9 - Gout, unspecified
[2016-07-16] MEDS: PANTOPRAZOLE SODIUM 40 MG in NORMAL SALINE 100 ML IV SCH (19:53)
[2016-07-17] MEDS: Lytes/Yerba Santa 240 APPL BTL MM SCH ×7 (00:13→22:20)
[2016-07-17] MEDS: traMADol HCL 50 MG TABLET PO PRN ×2 (02:35→09:05)
[2016-07-17 06:05] LABS: Hematocrit 37.6 % (42.0-52.0); Hemoglobin 12.7 gm/dL (13.5-18.0); Mean Corpuscular Hemoglobin 30.8 pg (27-31); Mean Corpuscular Hgb Conc 33.8 g/dl (32-36); Mean Platelet Volume 9.2 fl (6.0-9.5); Platelet Count 235 K/mm3 (150-450); Red Blood Count 4.13 M/mm3 (4.7-6.0); Red Cell Distribution Width 13.4 % (11.5-14.0); White Blood Count 10.9 K/mm3 (4.0-10.5)
[2016-07-17 06:07] LABS: Total Cells Counted 100
[2016-07-17 06:19] LABS: Albumin * 2.5 gm/dl (3.4-5.0); Bilirubin, Total 0.5 mg/dL (0.0-1.1); Ca. Corrected For Albumin 9.8 mg/dL (8.4-10.2); Calcium * 8.9 mg/dL (7.9-10.9); Potassium 3.9 mmol/L (3.4-4.6); Total Protein 6.7 gm/dL (6.2-8.2)
[2016-07-17 06:20] LABS: Lymphocyte 18 % (20-51); Monocyte 8 % (0-9); Neutrophil 74 % (42-75); Neutrophil # 8.1 K/mm3 (1.3-6.0); Platelet Estimate Normal (NORMAL); RBC Morphology Normal (NORMAL)
[2016-07-17 06:29] LABS: Anion Gap 9.3 mmol/L (6.8-13.8); Carbon Dioxide 28.6 mmol/L (24-32.6)
[2016-07-17] MEDS: CHLORHEXIDINE GLUCONATE 15 ML UDC MM SCH (09:03)
[2016-07-17] MEDS: LISINOPRIL 20 MG TABLET PO SCH (09:03)
[2016-07-17] MEDS: FOLIC ACID 1 MG TABLET PO SCH (09:03)
[2016-07-17] MEDS: THIAMINE HCL 100 MG TABLET PO SCH (09:03)
[2016-07-17] MEDS: FOLIC ACID/VITAMIN B COMP W-C 1 TAB TABLET PO SCH (09:03)
[2016-07-17] MEDS: HYDROCHLOROTHIAZIDE 25 MG TABLET PO SCH (09:03)
[2016-07-17] MEDS: MULTIVITAMINS 1 CAP CAPSULE PO SCH (09:03)
[2016-07-17] MEDS ORDERED: POTASSIUM CHLORIDE 40 MEQ/15 ML BTL PO ONE (10:49)
[2016-07-17] MEDS ORDERED: FUROSEMIDE 10 MG/ML VIAL IV ONE (10:49)
[2016-07-17] MEDS: CIPROFLOXACIN LACTATE/D5W 400 MG/200 ML BAG IV SCH ×2 (10:51→22:19)
[2016-07-17] MEDS ORDERED: predniSONE 20 MG TABLET PO ONE (10:51)
[2016-07-17] MEDS: MAGNESIUM OXIDE 400 MG TABLET PO SCH (11:39)
[2016-07-17] MEDS: NAPH,MB-DB/K PH,MBDB 1 PACKET PACKET PO SCH (11:42)
[2016-07-17] MEDS: CHOLECALCIFEROL 5,000 UNIT TABLET PO SCH (11:42)
[2016-07-17] MEDS: PANTOPRAZOLE SODIUM 40 MG in NORMAL SALINE 100 ML IV SCH (18:39)
--- NOTE | 2016-07-17 20:24 | PN ---
Subjective - Date and Time Seen Date: 07/17/16 Time: 10:36 Subjective Narrative: sitting in chair. c/o bilat feet pain but improved after prednisone 60 mg dose yesterday. audible wheezing but improved from yesterday. more amenable to go to rehab facility - working on placement. Objective Objective Narrative: EGD done 07/14/16 showed: - lesion at the base of the tongue (work up outpatient) - chemical gastritis - small hiatal hernia. - Review of Systems Generalized/Overall Review: Reports: Weakness, Fatigue EENTM: Reports: No Symptoms Reported Respiratory: Reports: Shortness of Breath Cardiac: Reports: Edema Abdominal: Reports: No Symptoms Reported Genitourinary Symptoms: Reports: No Symptoms Reported Musculoskeletal Complaints: Reports: Joint Pain, Muscle Pain Neurological: Reports: Weakness Skin: Reports: No Symptoms Reported Endocrine: Reports: No Symptoms Reported Misc: All systems neg except as marked - Vitals Vitals: Last Vital Signs Temp 37.1 C 07/17/16 19:17 Pulse 81 07/17/16 19:17 Resp 20 07/17/16 19:17 BP 125/68 07/17/16 19:17 Pulse Ox 95 07/17/16 19:17 - Abnormal Lab Findings Abnormal Lab Findings: Abnormal Lab Results 07/17/16 07/17/16 Range/Units 05:30 05:30 WBC 10.9 H (4.0-10.5) K/mm3 RBC 4.13 L (4.7-6.0) M/mm3 Hgb 12.7 L (13.5-18.0) gm/dL Hct 37.6 L (42.0-52.0) % Lymphocytes % (Manual) 18 L (20-51) % Neutrophils # (Manual) 8.1 H (1.3-6.0) K/mm3 Random Glucose 138 H D (70-110) mg/dL Alkaline Phosphatase 45 L (50-170) U/L Albumin 2.5 L (3.4-5.0) gm/dl - Exam Constitutional: Present: Alert, Oriented x3, Cooperative ENT Exam: Present: hearing grossly normal Neck: Present: full range of motion, supple Breasts: Present: Exam deferred Respiratory: Present: no accessory muscle use, respiratory distress - mild, rales, rhonchi Cardiovascular/Chest: Present: normal peripheral pulses, regular rate, rhythm Abdomen: Present: soft, nontender, obese /Rectal: Present: Exam deferred Extremity: Present: lower extremity edema - +1 bilat lower extremity edema, leg pain - bilat foot Skin Exam: Present: warm/dry, no cyanosis, pallor Neurologic: Present: alert, oriented x 3 Cauti Physician Documentation - Urinary Catheter Management Urethral ([place]) Reason for Continuing Indwelling Catheter: Decision made to DC Date of Insertion: 07/16/16 Time of Insertion: 14:40 Assessment/Plan Plan Narrative: GI bleed - EGD showed gastritis - cont iv protonix - CLOtest negative Confusion - A&O this am. - monitor etoh abuse - may have possible gone through withdrawal already due to family report of seizures - educated on importance that patient not drink etoh anymore. - long talk with patient today (07/17/16) regarding no more etoh - US of liver shows beginning stages of cirrohsis Fluid overload - 4 liters of NS given since admission - IV fluids off since 07/15/16, respiratory distress 07/16/16, improving07/17/16 - lasix 80 mg iv 07/16/16 - lasix 60 mg iv 07/17/16 - soto for accurate I&O, d/c soto tonight (07/17/16) as respiratory status is improving UTI - prelim urine culture from 07/14/16 showed staph aureus - indeterminate if sensitive to rocephin - start on rocephin 1 gm iv q 24 hours stopped on 07/17/16 - start cipro 400 mg iv bid on 07/17/16 (sensitive per final urine culture) Leukocytosis - likely due to UTI - spiked fever last night at 2330 on 07/15/16 of 38.5 - no fevers today 07/17/16 - blood cultures drawn and pending - chest xray done 07/16/16 and negative for acute cardiopulmonary changes. oral thrush - start peridex mouth rinse daily. - ordered q 4 oral cares Gout flare - uric acid elevated at 8.3 on 07/16/16 - prednisone 60 mg given once on 07/16/16 - prednisone 60 mg given once on 07/16/16 Chronic issues: Htn: continue home meds, vital signs q4 hours. Code status: Full Code GI proph: IV protonix VTE: no pharmacologic due to GI bleed, harmeet clarke - Problems/Diagnosis (1) Confusion Problem: Acute (2) Alcohol abuse Problem: Acute (3) GI bleeding Problem: Acute Qualifiers: GI bleed type/associated pathology: gastritis Gastritis type: acute gastritis Qualified Code(s): K29.01 - Acute gastritis with bleeding (4) Fluid overload Problem: Acute Qualifiers: Hypervolemia type: other Qualified Code(s): E87.79 - Other fluid overload (5) Leukocytosis Problem: Acute Qualifiers: Leukocytosis type: unspecified Qualified Code(s): D72.829 - Elevated white blood cell count, unspecified (6) Oral thrush Problem: Acute (7) Gout flare Problem: Acute Qualifiers: Gout site: unspecified site Gout etiology: unspecified cause Qualified Code(s): M10.9 - Gout, unspecified
[2016-07-18] MEDS: Lytes/Yerba Santa 240 APPL BTL MM SCH ×6 (02:44→23:06)
[2016-07-18 05:59] LABS: Anion Gap 10.9 mmol/L (6.8-13.8); Carbon Dioxide 28.2 mmol/L (24-32.6); Potassium 4.1 mmol/L (3.4-4.6)
[2016-07-18] MEDS: traMADol HCL 50 MG TABLET PO PRN ×2 (06:51→23:05)
[2016-07-18] MEDS: FOLIC ACID/VITAMIN B COMP W-C 1 TAB TABLET PO SCH (11:07)
[2016-07-18] MEDS: HYDROCHLOROTHIAZIDE 25 MG TABLET PO SCH (11:07)
[2016-07-18] MEDS: LISINOPRIL 20 MG TABLET PO SCH (11:07)
[2016-07-18] MEDS: FOLIC ACID 1 MG TABLET PO SCH (11:07)
[2016-07-18] MEDS: THIAMINE HCL 100 MG TABLET PO SCH (11:07)
[2016-07-18] MEDS: MULTIVITAMINS 1 CAP CAPSULE PO SCH (11:07)
[2016-07-18] MEDS: CHLORHEXIDINE GLUCONATE 15 ML UDC MM SCH (11:08)
[2016-07-18] MEDS: CIPROFLOXACIN LACTATE/D5W 400 MG/200 ML BAG IV SCH (11:08)
[2016-07-18] MEDS: CHOLECALCIFEROL 5,000 UNIT TABLET PO SCH (13:03)
[2016-07-18] MEDS: MAGNESIUM OXIDE 400 MG TABLET PO SCH (13:03)
[2016-07-18] MEDS: NAPH,MB-DB/K PH,MBDB 1 PACKET PACKET PO SCH (13:07)
--- NOTE | 2016-07-18 15:44 | PN ---
Subjective - Date and Time Seen Date: 07/18/16 Time: 15:42 Subjective Narrative: Pt. has not complaints except the bottoms of his feet hurt when he walks. Denies dizzy spells, withdrawal sx. States appetite is good. Denies hematemesis, CP, SOB. does feel weak. Objective Objective Narrative: Late note due to just being notified that Mr. Kaminski was in the hospital, but was not on my list due to registration issues. - Review of Systems Generalized/Overall Review: Reports: Weakness. Denies: Chills, Fever EENTM: Reports: No Symptoms Reported Respiratory: Reports: No Symptoms Reported Cardiac: Reports: No Symptoms Reported Abdominal: Reports: No Symptoms Reported Genitourinary Symptoms: Reports: No Symptoms Reported Musculoskeletal Complaints: Reports: Other - foot pain - arches. Neurological: Reports: Parasthesia, Weakness Skin: Reports: No Symptoms Reported Endocrine: Reports: No Symptoms Reported - Vitals Vitals: Last Vital Signs Temp 36.7 C 07/18/16 10:21 Pulse 66 07/18/16 11:07 Resp 18 07/18/16 10:21 BP 142/75 07/18/16 11:07 Pulse Ox 93 07/18/16 10:21 - Abnormal Lab Findings Abnormal Lab Findings: Abnormal Lab Results 07/18/16 Range/Units 06:00 Random Glucose 153 H (70-110) mg/dL - Exam Constitutional: Present: Alert, Oriented x3, Cooperative, No distress, Obese ENT Exam: Present: hearing grossly normal Neck: Present: supple Respiratory: Present: lungs clear, normal breath sounds, no respiratory distress , no accessory muscle use Cardiovascular/Chest: Present: regular rate, rhythm, no murmur Abdomen: Present: Normal bowel sounds, soft, nontender, nondistended, no rebound tenderness, no hepatospenomegaly, obese Extremity: Present: non-tender, lower extremity edema - 1+, other - ankles are non-tender to palpation/ROM. plantar fasciia is very tender to palpation aaron R> >L. 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 (2) Alcohol withdrawal Problem: Resolved Qualifiers: Complication of substance-induced condition: with unspecified complication Qualified Code(s): F10.239 - Alcohol dependence with withdrawal, unspecified (3) Confusion Problem: Resolved (4) Fluid overload Problem: Resolved Qualifiers: Hypervolemia type: other Qualified Code(s): E87.79 - Other fluid overload Narrative: appears to have diuresed well, wt. down 4 KG. will follow, no more lasix for now. (5) GI bleeding Problem: Resolved Qualifiers: GI bleed type/associated pathology: gastritis Gastritis type: acute gastritis Qualified Code(s): K29.01 - Acute gastritis with bleeding Narrative: Hb holding steady for several days now. continue off EtOH and on protonix ( change to PO). (6) Leukocytosis Problem: Acute Qualifiers: Leukocytosis type: unspecified Qualified Code(s): D72.829 - Elevated white blood cell count, unspecified (7) Oral thrush Problem: Acute Narrative: no white plaques in mouth so may be resolved. consider nystatin swish and swallow. (8) Syncope Problem: Acute Qualifiers: Syncope type: unspecified Qualified Code(s): R55 - Syncope and collapse (9) Abrasion Problem: Acute (10) Fall (on) (from) other stairs and steps, initial encounter Problem: Acute Narrative: continue PT/OT for balance and coordination and strengthening. (11) Plantar fasciitis Problem: Acute Narrative: aaron feet - would recommend placing pt. in walking or running shoes when ambulating to ease pain. (12) UTI (urinary tract infection) Problem: Acute Qualifiers: Urinary tract infection type: acute cystitis Narrative: finish cipro. This was present on admit. (13) Discharge planning issues Problem: Acute Narrative: Pt. is stable and ready for discharge, just awaiting placement in [place], but [employer] limits where he can go.
[2016-07-18] MEDS: CIPROFLOXACIN HCL 500 MG TABLET PO SCH (20:19)
[2016-07-19] MEDS: Lytes/Yerba Santa 240 APPL BTL MM SCH ×3 (02:11→11:39)
[2016-07-19] MEDS: ACETAMINOPHEN 325 MG TABLET PO PRN (02:16)
[2016-07-19] MEDS ORDERED: PANTOPRAZOLE SODIUM 40 MG TABLET.EC PO SCH (07:00)
[2016-07-19] MEDS: traMADol HCL 50 MG TABLET PO PRN (07:07)
--- NOTE | 2016-07-19 07:45 | PN ---
Subjective - Date and Time Seen Date: 07/19/16 Time: 07:38 Subjective Narrative: Only complaint is his feet hurt a great deal when stepping down on them, especially the bottoms of the feet. It does improve some with ambulation, but still hurts a great deal. He has no other complaints. Objective - Review of Systems Generalized/Overall Review: Reports: Weakness. Denies: Chills, Fever, Malaise EENTM: Reports: No Symptoms Reported Respiratory: Reports: No Symptoms Reported Cardiac: Reports: No Symptoms Reported Abdominal: Reports: No Symptoms Reported Genitourinary Symptoms: Reports: No Symptoms Reported Musculoskeletal Complaints: Reports: Other - foot pain aaron, R>L Neurological: Reports: Weakness Skin: Reports: No Symptoms Reported Endocrine: Reports: No Symptoms Reported - Vitals Vitals: Last Vital Signs Temp 36.7 C 07/19/16 07:03 Pulse 71 07/19/16 07:03 Resp 20 07/19/16 07:03 BP 128/68 07/19/16 07:03 Pulse Ox 94 07/19/16 07:03 - Exam Constitutional: Present: Alert, Oriented x3, Cooperative, Mild distress, Obese ENT Exam: Present: hearing grossly normal Neck: Present: supple Respiratory: Present: lungs clear, normal breath sounds, no respiratory distress , no accessory muscle use Cardiovascular/Chest: Present: regular rate, rhythm, no murmur, edema - 1+ pedal Abdomen: Present: Normal bowel sounds, soft, nontender, no rebound tenderness, no hepatospenomegaly, obese Extremity: Present: no calf tenderness, lower extremity edema Skin Exam: Present: normal color, warm/dry, no cyanosis Neurologic: Present: normal mood/affect, oriented x 3 Appearance: Present: appropriate appearance, appropriate insight, neat Eye contact: Present: cooperative, good eye contact, normal speech Thoughts: Present: normal thought pattern, no apparent hallucination Cauti Physician Documentation - Urinary Catheter Management Urethral ([place]) Urethral Indwelling: No Date of Insertion: 07/16/16 Time of Insertion: 14:40 Date of Removal: 07/18/16 Time of Removal: 06:00 Assessment/Plan - Problems/Diagnosis (1) Alcohol abuse Problem: Acute (2) Alcohol withdrawal Problem: Resolved Qualifiers: Complication of substance-induced condition: with unspecified complication Qualified Code(s): F10.239 - Alcohol dependence with withdrawal, unspecified Narrative: no signs of this. problem time frame passed and should no longer be a concern. (3) Confusion Problem: Resolved (4) Fluid overload Problem: Resolved Qualifiers: Hypervolemia type: other Qualified Code(s): E87.79 - Other fluid overload (5) GI bleeding Problem: Resolved Qualifiers: GI bleed type/associated pathology: gastritis Gastritis type: acute gastritis Qualified Code(s): K29.01 - Acute gastritis with bleeding (6) Leukocytosis Problem: Acute Qualifiers: Leukocytosis type: unspecified Qualified Code(s): D72.829 - Elevated white blood cell count, unspecified Narrative: due to steroids most likely, could be from UTI. (7) Oral thrush Problem: Resolved (8) Syncope Problem: Acute Qualifiers: Syncope type: unspecified Qualified Code(s): R55 - Syncope and collapse Narrative: EtOH related most likely. no further episodes. (9) Abrasion Problem: Acute (10) Fall (on) (from) other stairs and steps, initial encounter Problem: Acute (11) Plantar fasciitis Problem: Acute Narrative: consider steroids vs. ECASA vs. ? risks are he had a GI bleed and this could cause exacerbation of this. He has not trialed using his Gators yet, so would trial these first. Consider night splints, PT. (12) UTI (urinary tract infection) Problem: Acute Qualifiers: Urinary tract infection type: acute cystitis Narrative: Present on admission given UCx obtained on admission. Finish cipro. (13) Discharge planning issues Problem: Acute Narrative: Pt. is stable and ready for discharge. Waiting on [employer] Medicare approval for placement.
[2016-07-19] MEDS: MULTIVITAMINS 1 CAP CAPSULE PO SCH (09:28)
[2016-07-19] MEDS: CIPROFLOXACIN HCL 500 MG TABLET PO SCH (09:28)
[2016-07-19] MEDS: FOLIC ACID/VITAMIN B COMP W-C 1 TAB TABLET PO SCH (09:28)
[2016-07-19] MEDS: HYDROCHLOROTHIAZIDE 25 MG TABLET PO SCH (09:29)
[2016-07-19] MEDS: FOLIC ACID 1 MG TABLET PO SCH (09:29)
[2016-07-19] MEDS: THIAMINE HCL 100 MG TABLET PO SCH (09:29)
[2016-07-19] MEDS: CHLORHEXIDINE GLUCONATE 15 ML UDC MM SCH (09:29)
[2016-07-19] MEDS: LISINOPRIL 20 MG TABLET PO SCH (09:29)
[2016-07-19] MEDS: MAGNESIUM OXIDE 400 MG TABLET PO SCH (11:39)
[2016-07-19] MEDS: NAPH,MB-DB/K PH,MBDB 1 PACKET PACKET PO SCH (11:40)
[2016-07-19] MEDS: CHOLECALCIFEROL 5,000 UNIT TABLET PO SCH (11:40)
[2016-07-19 11:44] VITALS: BP 132/62
--- NOTE | 2016-07-19 11:49 | DS ---
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 Problem: Acute Qualifiers: Leukocytosis type: unspecified Qualified Code(s): D72.829 - Elevated white blood cell count, unspecified (7) Oral thrush Problem: Resolved (8) Syncope Problem: Resolved Qualifiers: Syncope type: unspecified Qualified Code(s): R55 - Syncope and collapse (9) Abrasion Problem: Resolved (10) Fall (on) (from) other stairs and steps, initial encounter Problem: Resolved (11) Plantar fasciitis Problem: Chronic (12) UTI (urinary tract infection) Problem: Acute Qualifiers: Urinary tract infection type: acute cystitis (13) Discharge planning issues Problem: Acute Description of Stay: Pt. admitted for syncopal episode and hematemesis/GI bleed which appeared to be EtOH related. Pt. was put on withdrawal precautions, given vitamins and fluids and had EGD done which did not show significant bleed, pt. was placed on protonix with Hb holding stable throughout his stay. He also was found on admission to have a UTI, which was treated wit cipro, culture sensitive abx. Delay in tx was based on waiting on UCx. Because of weakness and aaron foot pain PT/OT was ordered. He did receive prednisone which helped his foot pain, but continuation of this was a concern due to GI bleed. Tramadol did not offer a lot of relief and narcotics pose a fall risk. We might try meloxicam at time of discharge. He was discharged to [facility] in [place], [place], one that his insurance will cover his stay. This did delay his discharge, but could not be prevented. Procedures Performed: see notes below List Procedures: EGD Discharge Disposition: Other HealthCare facility Disposition: Other health care facility Condition: Good Discharge Activity: Activity as tolerated Discharge Diet: Low salt Discharge Level of Care:: SNF - [facility] Therapy: Physicial Therapy, Occupation Therapy Referrals: Matt Rodriguez MD [Primary Care Provider] - Two Weeks (depends on whether patient is out of [facility] by then or can be transported by family as I do not go to [facility] in [place].) Prescriptions (Any new or edited meds): Ciprofloxacin HCl [Cipro] 500 mg PO BID #10 tablet Hydrochlorothiazide [Hydrodiuril] 25 mg PO DAILY #30 tablet Pantoprazole Sodium [Protonix] 40 mg PO DAILY@0700 #30 tablet. traMADol HCL [Ultram] 50 mg PO Q6H PRN #120 tablet PRN Reason: Moderate Pain Complete Home Medications List: Complete Home Medication List: Aspirin [Aspirin EC] 81 mg PO DAILY 06/02/16 Lisinopril/Hydrochlorothiazide [Zestoretic 20-25 mg Tablet] 1 each PO DAILY 01/09 Garlic 200 mg PO DAILY 07/14/16 Gluc Workman/Chondro Workman A/Vit C/Mn [Glucosamine 1,500 Complex Cp] 1 each PO DAILY Multivitamin [Multivitamins] 1 each PO DAILY 07/14/16 Acetaminophen [Tylenol] 650 mg PO Q4H PRN #0 tablet 07/19/16 Ciprofloxacin HCl [Cipro] 500 mg PO BID #10 tablet 07/19/16 Folic Acid 1 mg PO DAILY tablet 07/19/16 Folic Acid/Vitamin B Comp W-C [Nephro-Priti] 1 tab PO DAILY tablet 07/19/16 Hydrochlorothiazide [Hydrodiuril] 25 mg PO DAILY #30 tablet 07/19/16 Multivitamins [Multivitamin Abel] 1 cap PO DAILY capsule 07/19/16 Pantoprazole Sodium [Protonix] 40 mg PO DAILY@0700 #30 tablet. 07/19/16 Thiamine HCl [Vitamin B-1] 100 mg PO DAILY tablet 07/19/16 traMADol HCL [Ultram] 50 mg PO Q6H PRN #120 tablet 07/19/16
== END 2016-07-19 13:25 | DRG 378 ==
LOC: ER 07:25 → INTOOBSV 09:46 → MS 09:46 → OBSVTOIN 07-15 10:20
PROVIDERS: ADMIT Nurse Practitioner Critical Care Medicine; ATTEND Family Medicine
PROC: 0DB68ZX Excision of Stomach, Via Natural or Artificial Opening Endoscopic, Diagnostic (ICD-10-PCS; principal; 2016-07-14 12:45)
DX: K29.21 Alcoholic gastritis with bleeding (principal); B37.0 Candidal stomatitis; F10.232 Alcohol dependence with withdrawal with perceptual disturbance; D72.829 Elevated white blood cell count, unspecified; T38.0X5A Adverse effect of glucocorticoids and synthetic analogues, initial encounter; R41.82 Altered mental status, unspecified; M10.9 Gout, unspecified; I10 Essential (primary) hypertension; Z79.82 Long term (current) use of aspirin; Z87.891 Personal history of nicotine dependence
CPT/HCPCS: 36415; 43239; 70450; 71010; 74020; 76705; 80048; 80053; 80307; 81001; 82140; 83735; 83880; 84100; 84484; 84550; 85007; 85014; 85018; 85025; 86850; 86900; 87040; 87077; 87081; 87086; 87186; 88305; 88312; 88313; 93005; 94640; 94762; 96365; 96367; 96375; 97110; 97116; 97161; 97165; 97530; 97535; 99284; G0378; G0480; G0481; G8987; G8988; G8989

== ENCOUNTER 2016-12-25 16:30 | Observation (INO) | payer MEDICARE ==
[2016-12-25 16:56] LABS: Hemoglobin 15.9 gm/dL (13.5-18.0); Mean Cell Volume 90.5 fl (78-100); Mean Corpuscular Hgb Conc 35.3 g/dl (32-36); Mean Platelet Volume 9.3 fl (6.0-9.5); Neutrophil # 10.4 K/mm3 (1.3-6.0); Neutrophil % 83.1 % (42-75.0); Platelet Count 241 K/mm3 (150-450); Red Blood Count 4.97 M/mm3 (4.7-6.0); Red Cell Distribution Width 13.1 % (11.5-14.0); White Blood Count 12.6 K/mm3 (4.0-10.5)
[2016-12-25] MEDS ORDERED: traMADol HCL 50 MG TABLET ONE (17:02)
[2016-12-25] MEDS ORDERED: PANTOPRAZOLE SODIUM 40 MG in NORMAL SALINE 100 ML IV ONE (17:18)
--- NOTE | 2016-12-25 17:18 | ERNOTE ---
Medical Problem HPI - General Chief Complaint: Fall Time Seen by Provider: 12/25/16 16:30 Source: family Exam Limitations: no limitations - Immun/Allergies/Home Medications Immunizations: IMMUNIZATION HX Immunizations Up to Date unknown History of Influenza Vaccine No Hx Pneumococcal Vaccination No Allergies/Adverse Reactions: Allergies No Known Drug Allergies Allergy (Verified 12/25/16 19:41) Home Medications: HOME MEDICATIONS Aspirin [Aspirin EC] 81 mg PO DAILY 06/02/16 [Last Taken Unknown] Lisinopril/Hydrochlorothiazide [Zestoretic 20-25 mg Tablet] 1 each PO DAILY 01/09 [Last Taken Unknown] Garlic 200 mg PO DAILY 07/14/16 [Last Taken Unknown] Gluc Workman/Chondro Workman A/Vit C/Mn [Glucosamine 1,500 Complex Cp] 1 each PO DAILY [Last Taken Unknown] Multivitamin [Multivitamins] 1 each PO DAILY 07/14/16 [Last Taken Unknown] Acetaminophen [Tylenol] 650 mg PO Q4H PRN #0 tablet 07/19/16 [Last Taken Unknown ] Ciprofloxacin HCl [Cipro] 500 mg PO BID #10 tablet 07/19/16 [Last Taken Unknown] Folic Acid 1 mg PO DAILY tablet 07/19/16 [Last Taken Unknown] Folic Acid/Vitamin B Comp W-C [Nephro-Priti] 1 tab PO DAILY tablet 07/19/16 [ Last Taken Unknown] Hydrochlorothiazide [Hydrodiuril] 25 mg PO DAILY #30 tablet 07/19/16 [Last Taken Unknown] Multivitamins [Multivitamin Abel] 1 cap PO DAILY capsule 07/19/16 [Last Taken Unknown] Pantoprazole Sodium [Protonix] 40 mg PO DAILY@0700 #30 tablet. 07/19/16 [Last Taken Unknown] Thiamine HCl [Vitamin B-1] 100 mg PO DAILY tablet 07/19/16 [Last Taken Unknown] traMADol HCL [Ultram] 50 mg PO Q6H PRN #120 tablet 07/19/16 [Last Taken Unknown] - History of Present History Narrative: Patient's reports that he has had increased confusion over the last week or two, she is concerned about dementia. About a week ago he spit up/vomited some blood and he has had occasional falls, his usually finds him down and has not actually observed the falls. Today his found him laying on the bedroom floor diaphoretic, it is unclear how long he has been down, a table was pushed aside. Patient has a history of ETOH abuse, states that he has not had a drink in two months ( has not seen him drinking either), he used to be a heavy drinker, was admitted in June for ETOH withdrawal,confusion and GI bleed which turned out to be ETOH induced gastritis Review of Systems - Narrative Narrative: limited by patient condition - Patient's Past Medical History Patient History - Medical: Alcohol Abuse, Other - GI bleed Patient History - Cardiac/Respiratory: Hypertension Patient History - Cancer: No Hx of Cancer Patient History - Surgical Procedures: Colonoscopy, EGD, T & A Patient History - Other: None - Family History Mother Family History - Medical: Family History - Cardiac/Respiratory: Hypertension Family History - Cancer: Breast Father Family History - Cancer: Lung - Social History Living Situations: home Abuse History: No History of abuse Psych History: No pertinent hx Smoking Status: Unknown if ever smoked Alcohol Use: heavy Drug Use: none - Immunizations Immunizations Up to Date: - unknown Hx Pneumococcal Vaccination: No History of Influenza Vaccine: No Physical Exam - Physical Exam General Appearance: Present: wd/wn, alert, no apparent distress Head Exam: Present: normal inspection, no evidence of injury, other - dry blood on mouth Eye Exam: Normal inspection: bilateral, PERRL: bilateral Ears, Nose, Throat: Present: normal ENT inspection, normal pharynx, other - small cut on tongue Neck: Present: normal inspection, nontender Respiratory: Present: no respiratory distress, normal breath sounds, no accessory muscle use, lungs clear Cardiovascular/Chest: Present: regular rate, rhythm, no murmur Gastrointestinal/Abdominal: Present: normal bowel sounds, nontender, nondistended, soft Male Genitals Exam: Present: normal genitalia Extremity Exam: Present: normal inspection Neurological Exam: Present: alert, normal mood/affect, no motor/sensory deficits , disoriented to situation. Absent: disoriented to person, disoriented to place Skin Exam: Present: normal color, warm/dry ED Progress - Results and Orders Patient's Lab Results:: I have reviewed the patient's lab results. - Vital Signs Patient's Vital Signs:: I have reviewed the patient's vital signs. Vital Signs: Vital Signs 12/25/16 12/25/16 16:35 17:02 Temperature 37.1 C Pulse Rate 101 H 104 H Respiratory 28 H Rate Blood Pressure 155/95 O2 Sat by Pulse 92 Oximetry - CT/Ultrasound CT/Ultrasound Narrative: CT head: no acute changes - Progress/Reassessment Chief Complaint: Fall Progress Note-Subjective: 12/25/16 18:13 patient had generalized seizure lasting about 2 minutes, ativan given, patient postictal 12/25/16 18:45 patient postical, stable discussed results with and other family, discussed nwe onset seizure and seizure as possible cause for other falls/syncopal episodes, further work up for that as well as the possible dementia per her doctor 12/25/16 18:[address] Sanders, okay to admit for observation, hold off on keppra as only one observed seizure so far will treat UTI with IV antibiotics for know as patient still postictal, reviewed last culture, will give rocephin Departure Clinical Impression: Seizure UTI (urinary tract infection) Qualifiers: Urinary tract infection type: acute cystitis Hematuria presence: without hematuria Qualified Code(s): N30.00 - Acute cystitis without hematuria - Departure Disposition: [facility] Condition: Stable
[2016-12-25 17:19] LABS: ALT 28 U/L (19-67); AST 32 U/L (0-48); Albumin * 3.7 gm/dl (3.4-5.0); Alkaline Phosphatase * 55 U/L (50-170); BUN/Creatinine Ratio 12.8 (9.0-21.6); Bilirubin, Total 0.5 mg/dL (0.0-1.1); Blood Urea Nitrogen 15 mg/dL (6-23); Ca. Corrected For Albumin 8.9 mg/dL (8.4-10.2); Carbon Dioxide 27.9 mmol/L (24-32.6); Chloride 106 mmol/L (97-106); Glucose * 127 mg/dL (70-110); Potassium 3.9 mmol/L (3.4-4.6); Sodium 143 mmol/L (132-142); Total Protein 7.2 gm/dL (6.2-8.2)
[2016-12-25 17:21] LABS: Troponin I 0.038 ng/ml (0.00-0.10)
[2016-12-25] MEDS ORDERED: MULTIVIT INFUSN,ADULT 4,VIT K 10 ML, THIAMINE HCL 100 MG in NORMAL SALINE 1,000 ML IV ONE (17:30)
[2016-12-25] MEDS ORDERED: MULTIVIT INFUSN,ADULT 4,VIT K 10 ML, THIAMINE HCL 100 MG in NORMAL SALINE 1,000 ML IV SCH (17:30)
[2016-12-25] MEDS ORDERED: PANTOPRAZOLE SODIUM 40 MG/100 ML PIGGYBACK IV ONE (17:30)
[2016-12-25 18:04] LABS: Urine Bilirubin Negative (NEGATIVE); Urine Ketone 5 mg/dL (NEGATIVE); Urine Nitrite Negative (NEGATIVE); Urine Protein 30 mg/dL (NEGATIVE); Urine Specific Gravity >=1.030 SP.GR. (1.005-1.030); Urine Urobilinogen Normal (NORMAL); Urine pH 5.5 pH (5.0-7.0)
[2016-12-25] MEDS ORDERED: LORazepam 2 MG/ML DISP.SYRIN ONE (18:09)
[2016-12-25] MEDS ORDERED: LORazepam 2 MG/ML DISP.SYRIN IV ONE (18:11)
[2016-12-25 18:16] LABS: Cocaine Ur Negative (NEGATIVE); Urine Barbiturate Negative (NEGATIVE); Urine Benzodiazepines Negative (NEGATIVE); Urine Opiates Negative (NEGATIVE); Urine PCP Negative (NEGATIVE); Urine THC Negative (NEGATIVE)
[2016-12-25 18:23] LABS: Urine Appearance Slightly Cloudy; Urine Bacteria 1+; Urine Blood 5 /ul (NEGATIVE); Urine Color Dark Yellow; Urine RBC TRACE /hpf (0-5); Urine Sperm Many - 3+; Urine WBC 0-5 /hpf (0-5)
[2016-12-25] MEDS ORDERED: FLU VACC QS2017-18(6MOS UP)/PF 60 MCG/0.5 ML SYRINGE IM ONE (20:08)
--- NOTE | 2016-12-25 21:50 | HP ---
Chief Complaint - Chief Complaint Date of Service: 12/25/16 Time of Service: 20:05 Chief Complaint: Frequent falls, History of Present Illness: 76 years old male adm to the hospital from ER with reports of fall at home. Pt is pleasantly confused, information obtained from previous records and (POA ) at the bedside.Per pt been having frequent episodes of fall,he typically have these accidents on days when he his more confused than usual. 3-4 months ago he fell and hit his head, he had LOC and was brought to the ER by EMS. On each episode pt was found by and couldn't remember what had happen before he fell. Today he was found on the floor by his . stated the pt was confused and had blood coming from his mouth with broken teeth. Pt denies LOC, headaches,shortness of breath,blurred vision, chest pain, palpitation, fever or chills. said she suspect he might be having seizures, while in ER he had witness episode of seizure. 07/13/16 on pt previous adm, family was concern for seizures as well. Pt with history of alcohol abuse and at the time was going through withdrawal. Family requesting pt to start on anticonvulsants despite only one report of seizure. PMH significant for GI bleeding, Gout, UTI, TIA, plantar fasciitis, hiatal hernia, gastritis,cirrhosis liver and hypertension. Plan of care discussed with pt and family they verbalized understanding and agrees. - Patient's Past Medical History Patient History - Medical: Alcohol Abuse, Other - cirrhosis liver, plantar fasciitis, hiatal hernia,gastritis, lesion at base og tongue Patient History - Cardiac/Respiratory: Hypertension Patient History - Cancer: No Hx of Cancer Patient History - Surgical Procedures: Colonoscopy, EGD, T & A Patient History - Other: Other - Family History Mother Family History - Medical: Family History - Cardiac/Respiratory: Hypertension Family History - Cancer: Breast Father Family History - Medical: Family History - Cancer: Lung - Social History Living Situations: spouse Abuse History: No History of abuse Psych History: No pertinent hx Smoking Status: Unknown if ever smoked Have you smoked in the past 12 months: No Do you dip or chew tobacco: No Smoking Stop Date: 12/30/59 Patient requests Smoking Cessation Consult: No Initiate information on Smoking Cessation: No Alcohol Use: heavy Drug Use: none - Immunizations Immunizations Up to Date: - unknown Hx Pneumococcal Vaccination: No History of Influenza Vaccine: No Review Of Systems (GEN) - Review of Systems Generalized/Overall Review: Present: Weakness EENTM: Present: No Symptoms Reported Respiratory: Present: Shortness of Breath, Orthopnea, Wheezing Cardiac: Present: No Symptoms Reported Abdominal: Present: No Symptoms Reported Genitourinary: Present: No Symptoms Reported Musculoskeletal: Present: Gout Neurological: Present: Seizure Skin: Present: No Symptoms Reported Endocrine: Present: No Symptoms Reported Immunizations: IMMUNIZATION HX Immunizations Up to Date unknown History of Influenza Vaccine No Hx Pneumococcal Vaccination No Allergies/Adverse Reactions: Allergies Allergy/AdvReac Type Severity Reaction Status Date / Time No Known Drug Allergies Allergy Verified 12/25/16 19:41 Home Medications: HOME MEDICATIONS Aspirin [Aspirin EC] 81 mg PO DAILY 06/02/16 [Last Taken 12/25/16 08:00] Multivitamin [Multivitamins] 1 each PO DAILY 07/14/16 [Last Taken 12/25/16 08:00 ] Multivitamins [Multivitamin Abel] 1 cap PO DAILY capsule 07/19/16 [Last Taken 12/25/16 08:00] Vitamin C 500 mg PO DAILY 12/25/16 [Last Taken 12/25/16 08:00] Exam - Exam Vital Signs: Vital Signs - Last Taken Temp 37.0 C 12/25/16 21:00 Pulse 80 12/25/16 21:00 Resp 20 12/25/16 21:00 BP 156/89 12/25/16 21:00 Pulse Ox 94 12/25/16 21:00 Constitutional: Present: Alert, Cooperative, Morbidly obese ENT Exam: Present: hearing grossly normal Eye Exam: bilateral eye: normal inspection Neck: Present: full range of motion Back Exam: Present: normal inspection Breasts: Present: Exam deferred Respiratory: Present: chest non-tender, no respiratory distress, no accessory muscle use, decreased breath sounds, wheezing - audible Cardiovascular/Chest: Present: normal peripheral pulses, regular rate, rhythm, no chest tenderness, no edema Peripheral Pulses: dorsalis-pedis (R): 3+, dorsalis-pedis (L): 3+ Abdomen: Present: Normal bowel sounds, soft, nontender, nondistended, no rebound tenderness /Rectal: Present: Exam deferred Extremity: Present: normal range of motion, non-tender, normal inspection, no pedal edema 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: alert, abnormal gait, disoriented x 3 Appearance: Present: appropriate appearance Eye contact: Present: cooperative Thoughts: Present: no apparent hallucination Diagnostic Studies: Laboratory Results WBC 12.6 K/mm3 (4.0-10.5) H 12/25/16 16:45 RBC 4.97 M/mm3 (4.7-6.0) 12/25/16 16:45 Hgb 15.9 gm/dL (13.5-18.0) 12/25/16 16:45 Hct 45.0 % (42.0-52.0) 12/25/16 16:45 MCV 90.5 fl (78-100) 12/25/16 16:45 MCH 32.0 pg (27-31) H 12/25/16 16:45 MCHC 35.3 g/dl (32-36) 12/25/16 16:45 RDW 13.1 % (11.5-14.0) 12/25/16 16:45 Plt Count 241 K/mm3 (150-450) 12/25/16 16:45 MPV 9.3 fl (6.0-9.5) 12/25/16 16:45 Immature Gran % (Auto) 0.30 % (0.001-0.429) 12/25/16 16:45 Immature Gran # (Auto) 0.04 K/mm3 (0.000-0.0310) H 12/25/16 16:45 Neutrophils % 83.1 % (42-75.0) H 12/25/16 16:45 Lymphocytes % 7.2 % (20-51) L 12/25/16 16:45 Monocytes % 9.0 % (0.0-9) 12/25/16 16:45 Eosinophils % 0.0 % (0.0-3.0) 12/25/16 16:45 Basophils % 0.4 % (0.0-1.0) 12/25/16 16:45 Nucleated RBC % 0.0 k/mm3 (0-1) 12/25/16 16:45 Neutrophils # 10.4 K/mm3 (1.3-6.0) H 12/25/16 16:45 Lymphocytes # 0.9 k/mm3 (1.5-3.5) L 12/25/16 16:45 Monocytes # 1.1 k/mm3 (0.0-1.0) H 12/25/16 16:45 Eosinophils # 0.0 k/mm3 (0.0-0.7) 12/25/16 16:45 Absolute Basophils 0.1 k/mm3 (0.0-0.1) 12/25/16 16:45 Sodium 143 mmol/L (132-142) H 12/25/16 16:45 Plasma Sodium 143 mmol/L (130-142) H 12/25/16 16:45 Potassium 3.9 mmol/L (3.4-4.6) 12/25/16 16:45 Chloride 106 mmol/L (97-106) 12/25/16 16:45 Carbon Dioxide 27.9 mmol/L (24-32.6) 12/25/16 16:45 Anion Gap 13.0 mmol/L (6.8-13.8) 12/25/16 16:45 BUN 15 mg/dL (6-23) 12/25/16 16:45 Creatinine 1.17 mg/dL (0.4-1.4) 12/25/16 16:45 Est GFR (Non-Af Amer) 65 mL/min (60-130) 12/25/16 16:45 BUN/Creatinine Ratio 12.8 (9.0-21.6) 12/25/16 16:45 Random Glucose 127 mg/dL (70-110) H 12/25/16 16:45 Lactic Acid, Venous 1.8 mmol/L (0.4-1.9) 12/25/16 16:45 Calcium 9.0 mg/dL (7.9-10.9) 12/25/16 16:45 Calcium Adj for Albumin 8.9 mg/dL (8.4-10.2) 12/25/16 16:45 Total Bilirubin 0.5 mg/dL (0.0-1.1) 12/25/16 16:45 AST 32 U/L (0-48) 12/25/16 16:45 ALT 28 U/L (19-67) 12/25/16 16:45 Alkaline Phosphatase 55 U/L (50-170) 12/25/16 16:45 Ammonia Less than 17.0 mcmol/L (11-35) 12/25/16 16:45 Troponin I 0.038 ng/ml (0.00-0.10) 12/25/16 16:45 Total Protein 7.2 gm/dL (6.2-8.2) 12/25/16 16:45 Albumin 3.7 gm/dl (3.4-5.0) 12/25/16 16:45 Urine Color Dark yellow 12/25/16 17:37 Urine Appearance Slightly cloudy 12/25/16 17:37 Urine pH 5.5 pH (5.0-7.0) 12/25/16 17:37 Ur Specific [place] >=1.030 SP.GR. (1.005-1.030) 12/25/16 17:37 Urine Protein 30 mg/dL (NEGATIVE) H 12/25/16 17:37 Urine Glucose (UA) Negative mg/dL (NEGATIVE) 12/25/16 17:37 Urine Ketones 5 mg/dL (NEGATIVE) 12/25/16 17:37 Urine Blood 5 /ul (NEGATIVE) H 12/25/16 17:37 Urine Nitrate Negative (NEGATIVE) 12/25/16 17:37 Urine Bilirubin Negative mg/dl (NEGATIVE) 12/25/16 17:37 Prot Sulfosalicylic Acd Negative mg/dL (0) 12/25/16 17:37 Urine Urobilinogen Normal EU/dl (NORMAL) 12/25/16 17:37 Ur Leukocyte Esterase 25 /ul (NEGATIVE) H 12/25/16 17:37 Urine RBC Trace /hpf (0-5) 12/25/16 17:37 Urine WBC 0-5 /hpf (0-5) 12/25/16 17:37 Ur Epithelial Cells 0-5 /hpf (0-5) 12/25/16 17:37 Urine Bacteria 1+ (NONE) H 12/25/16 17:37 Urine Sperm Many - 3+ (NONE) H 12/25/16 17:37 Urine Culture Comments Culture to follow 12/25/16 17:37 Urine Opiates Screen Negative (NEGATIVE) 12/25/16 17:37 Barbiturate Screen Negative (NEGATIVE) 12/25/16 17:37 Ur Phencyclidine Scrn Negative (NEGATIVE) 12/25/16 17:37 Urine Amphetamine Negative (NEGATIVE) 12/25/16 17:37 U Benzodiazepines Scrn Negative (NEGATIVE) 12/25/16 17:37 Urine Cocaine Screen Negative (NEGATIVE) 12/25/16 17:37 Urine Marijuana (THC) Negative (NEGATIVE) 12/25/16 17:37 Ethyl Alcohol Less than 3.0 mg/dL (0.0-10.0) 12/25/16 16:45 CT head: No acute intracranial abnormality. Assessment/Plan - Narrative Narrative: New onset Seizure First witness incident in ER Family stated they suspect pt might be having seizure but haven't witness it before now. 06/2016 on prior adm he was having alcohol withdrawals and family was suspicious of seizures at the time. On different instances believed pt hit his head during the falls. He had quit drinking 4 months ago when diagnosed with cirrhosis liver urine tox and alcohol level negative CT head no acute intracranial abnormality. Continue with neuro-checks and seizure precautions. EEG and MRI head pending Family want anticonvulsants, will hold off for now and if another episode will start on keppra. UTI recurrent UTI and was treated a month ago Seen on urinalysis urine culture pending On adm WBC 12.6 Continue with Rocephin, a dose was given in ER. Dementia Family concern that pt forgetting hoe to do regular activities like taking a shower and shaving Mini- mental status Frequent re-orientation safety while hospitalized Code status : full with restrictions VTE ppx:scd GI ppx: pepcid Time 45 minutes, previous records reviewed, case discussed with family and Dr beach. - Assessment/Plan (1) Dementia Problem: Acute (2) Seizure Problem: Acute (3) UTI (urinary tract infection) Problem: Acute Qualifiers: Urinary tract infection type: acute cystitis Hematuria presence: without hematuria Qualified Code(s): N30.00 - Acute cystitis without hematuria (4) Syncope Problem: Resolved
[2016-12-26 05:55] LABS: Hematocrit 41.4 % (42.0-52.0); Hemoglobin 14.3 gm/dL (13.5-18.0); Mean Cell Volume 92.2 fl (78-100); Mean Corpuscular Hemoglobin 31.8 pg (27-31); Mean Corpuscular Hgb Conc 34.5 g/dl (32-36); Mean Platelet Volume 9.8 fl (6.0-9.5); Neutrophil % 70.4 % (42-75.0); Platelet Count 208 K/mm3 (150-450); Red Blood Count 4.49 M/mm3 (4.7-6.0); Red Cell Distribution Width 13.1 % (11.5-14.0); White Blood Count 11.3 K/mm3 (4.0-10.5)
[2016-12-26 06:08] LABS: Anion Gap 11.8 mmol/L (6.8-13.8); BUN/Creatinine Ratio 11.7 (9.0-21.6); Calcium * 8.5 mg/dL (7.9-10.9); Carbon Dioxide 25.6 mmol/L (24-32.6); Estimated Creat Clear 57.9; Potassium 3.4 mmol/L (3.4-4.6)
[2016-12-26] MEDS ORDERED: FLU VACC QS2017-18(6MOS UP)/PF 60 MCG/0.5 ML SYRINGE IM ONE (09:00)
[2016-12-26] MEDS: ASPIRIN 81 MG TABLET.DR PO SCH (09:31)
[2016-12-26] MEDS: FAMOTIDINE 20 MG TABLET PO SCH (09:31)
[2016-12-26] MEDS: MULTIVITAMINS 1 CAP CAPSULE PO SCH (09:31)
--- NOTE | 2016-12-26 14:57 | PN ---
Subjective - Date and Time Seen Date: 12/26/16 Time: 14:46 Subjective Narrative: Pt. seen earlier this am and was soundly sleeping, not waking up to gentle physical or verbal stimuli. He is a alert this afternoon, not quite his typical baseline, but does appear oriented to person, place and time. He has no complaints. is with him and states that he has been having a great deal of issues with his bladder lately - can't hold his urine and has been more confused lately. Has found him down, passed out several times, though pt. and both state he is not drinking any alcohol. Objective - Review of Systems Generalized/Overall Review: Reports: Weakness. Denies: Chills, Fever, Malaise, Fatigue, Weight loss, Weight gain EENTM: Reports: No Symptoms Reported Respiratory: Reports: No Symptoms Reported Cardiac: Reports: No Symptoms Reported Abdominal: Reports: No Symptoms Reported Genitourinary Symptoms: Reports: Urgency, Frequency, Hesitancy, Dribbling, Incontinent, Nocturia. Denies: Burning, Dysuria Musculoskeletal Complaints: Reports: Joint Pain - ghassan knees hurt and legs feel weak. Neurological: Reports: Seizure, Weakness. Denies: Headache, Anxiety, Depressed Skin: Reports: No Symptoms Reported Endocrine: Reports: No Symptoms Reported - Vitals Vitals: Last Vital Signs Temp 36.3 C L 12/26/16 06:00 Pulse 66 12/26/16 07:00 Resp 18 12/26/16 06:00 BP 134/71 12/26/16 06:00 Pulse Ox 96 12/26/16 06:00 - Abnormal Lab Findings Abnormal Lab Findings: Abnormal Lab Results 12/26/16 12/26/16 Range/Units 05:35 05:35 WBC 11.3 H (4.0-10.5) K/mm3 RBC 4.49 L (4.7-6.0) M/mm3 Hct 41.4 L (42.0-52.0) % MCH 31.8 H (27-31) pg MPV 9.8 H (6.0-9.5) fl Immature Gran # (Auto) 0.04 H (0.000-0.0310) K/mm3 Lymphocytes % 15.7 L (20-51) % Monocytes % 12.8 H (0.0-9) % Neutrophils # 8.0 H (1.3-6.0) K/mm3 Monocytes # 1.5 H (0.0-1.0) k/mm3 Chloride 108 H (97-106) mmol/L - EKG/Xray Findings EKG: NSR - Exam Constitutional: Present: Alert, Oriented x3, Cooperative, No distress, Obese ENT Exam: Present: hearing grossly normal Neck: Present: supple Respiratory: Present: lungs clear, normal breath sounds, no respiratory distress , no accessory muscle use Cardiovascular/Chest: Present: regular rate, rhythm, no murmur Abdomen: Present: Normal bowel sounds, soft, nontender, nondistended, no rebound tenderness, no hepatospenomegaly, obese /Rectal: Present: Exam deferred Extremity: Present: no calf tenderness, lower extremity edema - mild Ghassan. LE 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: normal mood/affect, oriented x 3 Appearance: Present: appropriate appearance, appropriate insight Eye contact: Present: cooperative, good eye contact, normal speech Thoughts: Present: normal thought pattern, no apparent hallucination Assessment/Plan - Problems/Diagnosis (1) Dementia Problem: Acute Qualifiers: Alzheimer's disease onset: unspecified onset Dementia behavioral disturbance: without behavioral disturbance Narrative: pt. appears to be oriented x 3, but his overall continence appears to be not his baseline. Has an impish smile and almost child like behavior at times. CVA vs. tumor vs. ? MRI negative for tumor, but did have microvascular disease. (2) Seizure Problem: Acute Narrative: unsure etiology. CT and MRI negative for findings that completely explain sx. EEG results pending, test is done. If further sz activity occurs then will start Keppra. Could be infection related and this is why sx are better as he is receiving abx. could be EtOH withdrawal, though both pt. and state no EtOH consumption. follow for now (3) UTI (urinary tract infection) Problem: Acute Qualifiers: Urinary tract infection type: acute cystitis Hematuria presence: without hematuria Qualified Code(s): N30.00 - Acute cystitis without hematuria Narrative: could be prostatitis. consider abx use for minimum of 14 days. (4) Confusion Problem: Resolved Narrative: from infection - prostate vs. UTI vs. microvascular dz. vs. ? (5) Syncope Problem: Resolved Narrative: infectious cause suspected at this time, though could be seizure. (6) Weakness Problem: Acute Narrative: will ambulate and get PT evaluation for balance and strength, treatment. (7) Discharge planning issues Problem: Acute Narrative: Pt. not ready for discharge as he is not his usual baseline yet and is at high risk for readdmission quickly and to have another event that may cause even more harm. EEG results are pending. Feel he needs a full 24-48hrs of observation to be sure no further seizures.
--- NOTE | 2016-12-27 07:29 | DS ---
(1) Dementia Problem: Acute Qualifiers: Alzheimer's disease onset: unspecified onset Dementia behavioral disturbance: without behavioral disturbance (2) Seizure Problem: Acute (3) UTI (urinary tract infection) Problem: Acute Qualifiers: Urinary tract infection type: acute cystitis Hematuria presence: without hematuria Qualified Code(s): N30.00 - Acute cystitis without hematuria (4) Confusion Problem: Resolved (5) Syncope Problem: Resolved (6) Weakness Problem: Acute (7) Discharge planning issues Problem: Acute Description of Stay: Pt. was admitted with confusion and seizure, with UA findings c/w UTI, but negative urine culture, therefore would be concerned about prostatitis. Seizure: he had CT of head, MRI of the head and EEG. CT and MRI did not show tumors or bleeds. 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 He did not have any further seizures while here in the hospital, which makes me believe this may be related to infection or still possibly EtOH withdrawal given his negative EtOH levels and history of EtOH abuse in the past, though this doesn't line up completely with what his and the patient were saying in regards to him not drinking since spring. EEG results were still pending at time of discharge, but patient was definitely back to his baseline mentation and ambulated > 250 feet last night. UTI: negative culture, believe this may be more prostatitis, which could explain all his sx including balance issues, LE weakness, frequency, urgency, incontinence and mental status changes. Will treat for this with a minimum of 3 weeks abx - bactrim. Weakness, balance issues and memory issues: PT was consulted for eval and treat. This can be continued on outpatient basis. Home health: pt. is home bound based on fact he cannot drive and is therefore dependent on others to leave the home. Because of his fall risk, elevated BP's on admit here and witnessed seizure, believe he would benefit from monitoring of his condition to help prevent readmission. Procedures Performed: none Discharge Disposition: Home self care Disposition: Home self-care Condition: Fair Discharge Activity: Activity as tolerated Usp Therapy: Physicial Therapy - for balance issues Referrals: Matt Rodriguez MD [Staff Physician] - 01/09/17 Mark Monaco MD [Consulting Physician] - Two Weeks (needs f/u for seizure issues to be sure if no treatment then what other tests might need done.) Additional Patient Instructions (free text): Please make TCM appointment at discharge, if applicable. Thank you! Janette @ [phone]. Prescriptions (Any new or edited meds): Sulfamethoxazole/Trimethoprim [Bactrim Ds] 1 tab PO BID #42 tab Complete Home Medications List: Complete Home Medication List: Aspirin [Aspirin EC] 81 mg PO DAILY 06/02/16 Multivitamin [Multivitamins] 1 each PO DAILY 07/14/16 Multivitamins [Multivitamin Abel] 1 cap PO DAILY capsule 07/19/16 Vitamin C 500 mg PO DAILY 12/25/16 Sulfamethoxazole/Trimethoprim [Bactrim Ds] 1 tab PO BID #42 tab 12/27/16
[2016-12-27] MEDS: MULTIVITAMINS 1 CAP CAPSULE PO SCH (08:24)
[2016-12-27] MEDS: FAMOTIDINE 20 MG TABLET PO SCH (08:24)
[2016-12-27] MEDS: ASPIRIN 81 MG TABLET.DR PO SCH (08:24)
[2016-12-27 10:49] VITALS: BP 136/75
== END 2016-12-27 13:35 | disposition home health service (06) ==
LOC: ER 16:30 → MS 19:07
PROVIDERS: ADMIT Family Medicine; ATTEND Family Medicine
DX: R56.9 Unspecified convulsions (principal); N39.0 Urinary tract infection, site not specified; R41.82 Altered mental status, unspecified; I10 Essential (primary) hypertension; Z23 Encounter for immunization
CPT/HCPCS: 36415; 70450; 70551; 80048; 80053; 80307; 81001; 82140; 83605; 84484; 85025; 87086; 90686; 93005; 95813; 96365; 96367; 96375; 97161; 99285; G0008; G0378; G0481; G8978; G8979; G8980

== ENCOUNTER 2017-01-10 18:10 | Observation (INO) | payer MEDICARE ==
[2017-01-10] MEDS ORDERED: ALBUTEROL SULFATE/IPRATROPIUM 3 ML NEBU IH ONE ×2 (18:21→18:22)
[2017-01-10] MEDS ORDERED: NORMAL SALINE 1,000 ML IV ONE ×2 (18:22→21:58)
--- NOTE | 2017-01-10 18:23 | ERNOTE ---
<Liliam Vieyra - Last Filed: 01/10/17 19:30> Neuro HPI ER Record Date of Service: 01/10/17 Time Seen by Provider: 01/10/17 18:19 Source: patient, EMS Immunizations: IMMUNIZATION HX Immunizations Up to Date Yes History of Influenza Vaccine Yes Hx Pneumococcal Vaccination Yes Allergies/Adverse Reactions: Allergies Allergy/AdvReac Type Severity Reaction Status Date / Time No Known Drug Allergies Allergy Verified 01/10/17 18:19 Home Medications: HOME MEDICATIONS Aspirin [Aspirin EC] 81 mg PO DAILY 06/02/16 [Last Taken 12/25/16 08:00] Multivitamin [Multivitamins] 1 each PO DAILY 07/14/16 [Last Taken 12/25/16 08:00 ] Multivitamins [Multivitamin Abel] 1 cap PO DAILY capsule 07/19/16 [Last Taken 12/25/16 08:00] Vitamin C 500 mg PO DAILY 12/25/16 [Last Taken 12/25/16 08:00] Sulfamethoxazole/Trimethoprim [Bactrim Ds] 1 tab PO BID #42 tab 12/27/16 [Last Taken Unknown] Lisinopril [Zestril] 10 mg PO DAILY 01/10/17 [Last Taken Unknown] traMADol HCL [Ultram] 50 mg PO PRN PRN 01/10/17 [Last Taken Unknown] - History of Present Illness Narrative: This patient was recently treated last week for a UTI. Today he has had 2 falls he feels very weak and shaky. Therefore EMS brought the patient in patient is a poor historian he cannot tell us if he has had any fevers or chills. - Patient's Past Medical History Patient History - Medical: Alcohol Abuse, Other Patient History - Cardiac/Respiratory: Hypertension Patient History - Cancer: No Hx of Cancer Patient History - Surgical Procedures: Colonoscopy, EGD, T & A Patient History - Other: Other - Family History Mother Family History - Medical: Family History - Cardiac/Respiratory: Hypertension Family History - Cancer: Breast Father Family History - Medical: Family History - Cancer: Lung - Social History Living Situations: home Abuse History: No History of abuse Psych History: No pertinent hx Smoking Status: Former smoker - Immunizations Immunizations Up to Date: Yes Hx Pneumococcal Vaccination: Yes History of Influenza Vaccine: Yes ED Progress - Results and Orders Patient's Lab Results:: I have reviewed the patient's lab results. - Vital Signs Patient's Vital Signs:: I have reviewed the patient's vital signs. Vital Signs: Vital Signs 01/10/17 18:13 Temperature 38.4 C H Pulse Rate 115 H Respiratory 27 H Rate Blood Pressure 134/80 O2 Sat by Pulse 94 Oximetry - X-Ray X-Ray #1 X-Ray: chest - Progress/Reassessment Chief Complaint: Altered Mental Status - Transfer of Care Physician Sign Out: Liliam Vieyra Receiving Physician: Augustin Pisano Pending Results: CT/MRI results, Labs, Physician/consult arrival, X-ray results Expected Disposition: Discharge, Transfer Departure Clinical Impression: Muscle weakness, Elevated erythrocyte sedimentation rate Altered mental status Qualifiers: Altered mental status type: unspecified Qualified Code(s): R41.82 - Altered mental status, unspecified - Departure Disposition: [facility] Condition: Fair <Augustin Pisano - Last Filed: 01/11/17 06:27> Neuro HPI ER Record Immunizations: IMMUNIZATION HX Immunizations Up to Date Yes History of Influenza Vaccine Yes Hx Pneumococcal Vaccination Yes - History of Present Illness Narrative: states that he has been getting weaker for 8-9 months. The past 3 days he has been worse. She states she has called 911 three times this week and brought him to the ED. He has not been here for about 2 weeks and before that it was 4 months. He has been in the half-way since his last admission and was better for a few days after getting home but declined again. She states he is unable to even stand and thus she cannot care for him at home. Review of Systems - Review of Systems Constitutional: Present: fever, chills. Absent: recent illness EYE: Absent: no symptoms reported ENT: Absent: no symptoms reported Respiratory: Absent: shortness of breath, cough Cardiology: Absent: chest pain Gastrointestinal/Abdominal: Present: eating less. Absent: nausea, vomiting Genitourinary: Absent: decreased urinary output Musculoskeletal: Present: muscle pain - and weakness Skin: Absent: rash Neurological: Present: weakness, tremors Endocrine: Present: excessive sweating Hematologic/Lymphatic: Present: no symptoms reported Psych: Present: no symptoms reported Physical Exam - Physical Exam General Appearance: Present: wd/wn, alert, mild distress Head Exam: Present: normal inspection, no evidence of injury Neck: Present: normal inspection, nontender, supple Respiratory: Present: no respiratory distress, normal breath sounds, no accessory muscle use Cardiovascular/Chest: Present: regular rate, rhythm, no murmur Back Exam: Present: normal inspection, normal range of motion Extremity Exam: Present: decreased range of motion - knees due to degenerative changes Neurological Exam: Present: alert, oriented, dope firer II-XII nml as tested, motor weakness - bilateral quads and hamstrings 4/5 strength. Skin Exam: Present: normal color, warm/dry Lymphatic Exam: Present: no adenopathy Sidney Coma Scale - Assess Eye Opening: Spontaneous Motor: Obeys Commands Verbal: Oriented - Total Coma Scale Total: 15 ED Progress - Results and Orders Patient's Lab Results:: I have reviewed the patient's lab results. Results and Orders: Laboratory Tests 01/10/17 01/10/17 01/10/17 18:34 18:34 18:34 WBC 9.5 Hgb 16.0 Hct 45.7 Plt Count 230 ESR Sodium 134 Potassium 5.0 H D Chloride 98 Carbon Dioxide 24.4 Anion Gap 16.6 H Creatinine 1.74 H D Est GFR (Non-Af Amer) 41 L D Random Glucose 130 H Lactic Acid, Venous 1.5 Calcium 8.8 Total Bilirubin 0.7 AST 28 ALT 27 Alkaline Phosphatase 57 Creatine Kinase C-Reactive Prot, Quant B-Natriuretic Peptide 370 Total Protein 7.4 Albumin 3.2 L Procalcitonin 01/10/17 01/10/17 01/10/17 18:34 18:34 18:34 WBC Hgb Hct Plt Count ESR 40 H Sodium Potassium Chloride Carbon Dioxide Anion Gap Creatinine Est GFR (Non-Af Amer) Random Glucose Lactic Acid, Venous Calcium Total Bilirubin AST ALT Alkaline Phosphatase Creatine Kinase 314 H C-Reactive Prot, Quant 22.1 H B-Natriuretic Peptide Total Protein Albumin Procalcitonin 0.32 - Vital Signs Patient's Vital Signs:: I have reviewed the patient's vital signs. Vital Signs: Vital Signs 01/10/17 01/10/17 01/10/17 18:13 18:25 18:26 Temperature 38.4 C H Pulse Rate 115 H 122 H 122 H Respiratory 27 H 22 H 22 H Rate Blood Pressure 134/80 131/80 O2 Sat by Pulse 94 93 93 Oximetry 01/10/17 01/10/17 01/10/17 18:50 19:13 19:35 Temperature 38.5 C H 39.1 C H Pulse Rate 128 H 118 H 120 H Respiratory 24 H 22 H 24 H Rate Blood Pressure 140/79 136/83 146/84 O2 Sat by Pulse 96 93 96 Oximetry 01/10/17 01/10/17 20:01 20:29 Temperature 38.6 C H Pulse Rate 118 H 116 H Respiratory 24 H 24 H Rate Blood Pressure 144/73 139/73 O2 Sat by Pulse 97 95 Oximetry - X-Ray X-Ray #1 X-Ray: chest Interpretation: Interp. by wa X-ray Comments: no acute cardiopulmonary abnormalities. - CT/Ultrasound CT/Ultrasound Narrative: CT head: Findings: There is no acute intracranial hemorrhage, midline shift or mass effect detected. No hydrocephalus. Cisterns are unremarkable. Reidentified atrophy and chronic microvascular ischemic disease change of the white matter. Stable lacunar infarcts in the right basal ganglia. Calvarium is intact. Paranasal sinuses are clear. Mastoid air cells are well pneumatized. Impression: No acute intracranial process detected. Electronically signed by Nikolas Waite M.D.. - Progress/Reassessment Progress:: Unchanged Progress Note-Subjective: 01/10/17 22:00 spoke with the patient and his . She believes that he drinks a lot of water despite his urine and blood results. She states that he cannot stand up on his own and keeps falling. 01/11/17 00:10 Spoke with Ban MIRANDA about obs admission for steroids, fluids, and rechecking of kidney functions tomorrow. Discussed possiblity of polymyositis.
[2017-01-10 18:46] LABS: Hematocrit 45.7 % (42.0-52.0); Mean Cell Volume 91.4 fl (78-100); Mean Platelet Volume 9.2 fl (6.0-9.5); Neutrophil # 7.7 K/mm3 (1.3-6.0); Neutrophil % 81.2 % (42-75.0); Platelet Count 230 K/mm3 (150-450); Red Cell Distribution Width 13.2 % (11.5-14.0); White Blood Count 9.5 K/mm3 (4.0-10.5)
[2017-01-10 19:15] LABS: Albumin * 3.2 gm/dl (3.4-5.0); Anion Gap 16.6 mmol/L (6.8-13.8); BUN/Creatinine Ratio 15.5 (9.0-21.6); Bilirubin, Total 0.7 mg/dL (0.0-1.1); Ca. Corrected For Albumin 9.1 mg/dL (8.4-10.2); Calcium * 8.8 mg/dL (7.9-10.9); Carbon Dioxide 24.4 mmol/L (24-32.6); Total Protein 7.4 gm/dL (6.2-8.2)
[2017-01-10 19:35] LABS: Urine Bilirubin Negative (NEGATIVE); Urine Ketone 5 mg/dL (NEGATIVE); Urine Nitrite Negative (NEGATIVE); Urine Protein 30 mg/dL (NEGATIVE); Urine Specific Gravity >=1.030 SP.GR. (1.005-1.030); Urine Urobilinogen Normal (NORMAL)
[2017-01-10] MEDS ORDERED: ACETAMINOPHEN 500 MG TABLET PO ONE (19:40)
[2017-01-10 19:49] LABS: Urine Blood 5 /ul (NEGATIVE)
[2017-01-10 19:50] LABS: Urine Amorphous Sediment Few - 1+ (NONE-FEW); Urine Appearance Cloudy; Urine Bacteria 1+; Urine Color Dark Yellow; Urine Fine Granular Cast 0-5 /LPF; Urine Hyaline Cast 0-5 /LPF; Urine RBC 0-5 /hpf (0-5); Urine WBC TRACE /hpf (0-5)
[2017-01-10 22:31] LABS: CRP 22.1 mg/dL (0.0-0.9)
--- NOTE | 2017-01-11 00:49 | HP ---
<Ban Childs - Last Filed: 01/11/17 05:39> Chief Complaint - Chief Complaint Date of Service: 01/11/17 Time of Service: 00:45 Chief Complaint: ' fall'. Source of HPI- Pt; unreliable, ER provider report. Pt 's spouse Mecca. History of Present Illness: Mr. Kaminski is a 76-yr-old WM pt of Dr. Matt Rodriguez with a PMH of: Arthritis ( Knees), Cirrhosis, GI bleed, Gastritis, Gout, UTI, TIA, Hiatal hernia, HTN & Seizures. History is unobtainable from the pt due to dementia. Mecca states that pt fell at least 2 times today at home and he called the EMS twice to assist him up. On the third fall, he was brought to the [facility] ER. Mecca states that he has been getting weaker, he can no longer ambulate or stand up on his own and has fallen at least 21 times since the beginning of the yr. With today's falls, he landed on his buttocks and she denies pt hitting his head on surface or objects. states that his knees have been 'bothering him due to arthritis.' He was recently hospitalized on 12/25 for Seizures which was thought to be related to ETOH withdrawal as the MRI & EEG had negative findings and he did not have any other episodes. His PCP has made referral to Neurology due to gait instabilities & pt has an appt on 01/15. He was also found to have a UTI and possibly Prostatitis and was started on Bactrim. He has 5 more days to complete this antibiotic. At the ED tonight, the Head CT was negative of bleed or CVA. The UA was also normal. The CXR did not have any acute cardiopulmonary findings. However, he had elevated BUN/CR of 27/1.74, ESR-40, CRP -22.1, CK-314. Spouse denies pt having any fevers, chill, n/v, diarrhea, Abd. Pain, Coughing and SOB. Pt will be admitted under observation statues for: SARAH, Dehydration, and Generalized Weakness. - Patient's Past Medical History Patient History - Medical: Alcohol Abuse, Seizures, Other - Cirrhosis Patient History - Cardiac/Respiratory: Hypertension Patient History - Cancer: No Hx of Cancer Patient History - Surgical Procedures: Colonoscopy, EGD, T & A, Other - Adenoidectomy. Patient History - Other: Other - Family History Mother Family History - Medical: Family History - Cardiac/Respiratory: Hypertension Family History - Cancer: Breast Father Family History - Medical: Family History - Cancer: Lung - Social History Living Situations: home Abuse History: No History of abuse Psych History: No pertinent hx Smoking Status: Former smoker - Immunizations Immunizations Up to Date: Yes Hx Pneumococcal Vaccination: Yes History of Influenza Vaccine: Yes Review Of Systems (GEN) - Review of Systems Generalized/Overall Review: Present: Weakness, Fatigue. Absent: Chills, Fever, Malaise, Diaphoresis EENTM: Absent: Eye Pain, Blurred Vision, Ear Pain, Nose Congestion, Throat Pain Respiratory: Absent: Cough, Shortness of Breath, Orthopnea, Wheezing Cardiac: Absent: Chest Pain, Edema, Palpitations Abdominal: Absent: Nausea, Vomiting, Hematemesis, Abdominal Pain, Constipation, Diarrhea Genitourinary: Absent: Burning, Itching, Urgency, Hematuria Musculoskeletal: Absent: Joint Pain, Back Pain, Joint Swelling Neurological: Present: Weakness. Absent: Headache, Anxiety Skin: Present: Dryness, Bruising Endocrine: Present: Increased Thirst. Absent: Intolerance to Cold, Increased Hunger Misc: All systems neg except as marked Allergies/Adverse Reactions: Allergies Allergy/AdvReac Type Severity Reaction Status Date / Time No Known Drug Allergies Allergy Verified 01/10/17 18:19 Home Medications: HOME MEDICATIONS Aspirin [Aspirin EC] 81 mg PO DAILY 06/02/16 [Last Taken 12/25/16 08:00] Multivitamin [Multivitamins] 1 each PO DAILY 07/14/16 [Last Taken 12/25/16 08:00 ] Multivitamins [Multivitamin Abel] 1 cap PO DAILY capsule 07/19/16 [Last Taken 12/25/16 08:00] Vitamin C 500 mg PO DAILY 12/25/16 [Last Taken 12/25/16 08:00] Sulfamethoxazole/Trimethoprim [Bactrim Ds] 1 tab PO BID #42 tab 12/27/16 [Last Taken Unknown] Lisinopril [Zestril] 10 mg PO DAILY 01/10/17 [Last Taken Unknown] traMADol HCL [Ultram] 50 mg PO PRN PRN 01/10/17 [Last Taken Unknown] Exam - Exam Vital Signs: Vital Signs - Last Taken Temp 37.6 C H 01/11/17 00:13 Pulse 82 01/11/17 00:13 Resp 16 01/11/17 00:13 BP 106/58 01/11/17 00:13 Pulse Ox 92 01/11/17 00:13 Constitutional: Present: Alert, Oriented x3, Cooperative, No distress ENT Exam: Present: normal ENT inspection, hearing grossly normal, dry mucous membranes. Absent: nasal congestion, nasal drainage Eye Exam: bilateral eye: normal inspection, PERRL Neck: Present: non-tender, full range of motion, supple Back Exam: Present: normal inspection, no CVA tenderness Breasts: Present: Exam deferred Respiratory: Present: lungs clear, no accessory muscle use, No wheezing Cardiovascular/Chest: Present: normal peripheral pulses, regular rate, rhythm, no chest tenderness, no murmur Abdomen: Present: Normal bowel sounds, soft, nontender /Rectal: Present: Exam deferred Extremity: Present: normal range of motion, non-tender, normal inspection, other - RT knee swelling, no redness or increased warmness Skin Exam: Present: warm/dry, no cyanosis Lymphatic: Present: no adenopathy Neurologic: Present: no motor/sensory deficits, oriented x 3 Appearance: Present: appropriate insight, disheveled Eye contact: Present: cooperative, good eye contact, normal speech Thoughts: Present: no apparent hallucination Diagnostic Studies: Laboratory Results WBC 9.5 K/mm3 (4.0-10.5) 01/10/17 18:34 RBC 5.00 M/mm3 (4.7-6.0) 01/10/17 18:34 Hgb 16.0 gm/dL (13.5-18.0) 01/10/17 18:34 Hct 45.7 % (42.0-52.0) 01/10/17 18:34 MCV 91.4 fl (78-100) 01/10/17 18:34 MCH 32.0 pg (27-31) H 01/10/17 18:34 MCHC 35.0 g/dl (32-36) 01/10/17 18:34 RDW 13.2 % (11.5-14.0) 01/10/17 18:34 Plt Count 230 K/mm3 (150-450) 01/10/17 18:34 MPV 9.2 fl (6.0-9.5) 01/10/17 18:34 Immature Gran % (Auto) 1.40 % (0.001-0.429) H 01/10/17 18:34 Immature Gran # (Auto) 0.13 K/mm3 (0.000-0.0310) H 01/10/17 18:34 Neutrophils % 81.2 % (42-75.0) H 01/10/17 18:34 Lymphocytes % 9.0 % (20-51) L 01/10/17 18:34 Monocytes % 7.7 % (0.0-9) 01/10/17 18:34 Eosinophils % 0.3 % (0.0-3.0) 01/10/17 18:34 Basophils % 0.4 % (0.0-1.0) 01/10/17 18:34 Nucleated RBC % 0.0 k/mm3 (0-1) 01/10/17 18:34 Neutrophils # 7.7 K/mm3 (1.3-6.0) H 01/10/17 18:34 Lymphocytes # 0.9 k/mm3 (1.5-3.5) L 01/10/17 18:34 Monocytes # 0.7 k/mm3 (0.0-1.0) 01/10/17 18:34 Eosinophils # 0.0 k/mm3 (0.0-0.7) 01/10/17 18:34 Absolute Basophils 0.0 k/mm3 (0.0-0.1) 01/10/17 18:34 ESR 40 mm/hr (0-10) H 01/10/17 18:34 Sodium 134 mmol/L (132-142) 01/10/17 18:34 Plasma Sodium 134 mmol/L (130-142) 01/10/17 18:34 Potassium 5.0 mmol/L (3.4-4.6) H D 01/10/17 18:34 Chloride 98 mmol/L (97-106) 01/10/17 18:34 Carbon Dioxide 24.4 mmol/L (24-32.6) 01/10/17 18:34 Anion Gap 16.6 mmol/L (6.8-13.8) H 01/10/17 18:34 BUN 27 mg/dL (6-23) H D 01/10/17 18:34 Creatinine 1.74 mg/dL (0.4-1.4) H D 01/10/17 18:34 Est GFR (Non-Af Amer) 41 mL/min (60-130) L D 01/10/17 18:34 BUN/Creatinine Ratio 15.5 (9.0-21.6) 01/10/17 18:34 Random Glucose 130 mg/dL (70-110) H 01/10/17 18:34 Lactic Acid, Venous 1.5 mmol/L (0.4-1.9) 01/10/17 18:34 Calcium 8.8 mg/dL (7.9-10.9) 01/10/17 18:34 Calcium Adj for Albumin 9.1 mg/dL (8.4-10.2) 01/10/17 18:34 Total Bilirubin 0.7 mg/dL (0.0-1.1) 01/10/17 18:34 AST 28 U/L (0-48) 01/10/17 18:34 ALT 27 U/L (19-67) 01/10/17 18:34 Alkaline Phosphatase 57 U/L (50-170) 01/10/17 18:34 Creatine Kinase 314 U/L (0-259) H 01/10/17 18:34 C-Reactive Prot, Quant 22.1 mg/dL (0.0-0.9) H 01/10/17 18:34 B-Natriuretic Peptide 370 pg/mL (5-650) 01/10/17 18:34 Total Protein 7.4 gm/dL (6.2-8.2) 01/10/17 18:34 Albumin 3.2 gm/dl (3.4-5.0) L 01/10/17 18:34 Procalcitonin 0.32 ng/mL (0.05-0.50) 01/10/17 18:34 Urine Color Dark yellow 01/10/17 19:23 Urine Appearance Cloudy 01/10/17 19:23 Urine pH 6.0 pH (5.0-7.0) 01/10/17 19:23 Ur Specific Angie >=1.030 SP.GR. (1.005-1.030) 01/10/17 19:23 Urine Protein 30 mg/dL (NEGATIVE) H 01/10/17 19:23 Urine Glucose (UA) Negative mg/dL (NEGATIVE) 01/10/17 19: Urine Ketones 5 mg/dL (NEGATIVE) 01/10/17 19: Urine Blood 5 /ul (NEGATIVE) H 01/10/17 19:23 Urine Nitrate Negative (NEGATIVE) 01/10/17 19: Urine Bilirubin Negative mg/dl (NEGATIVE) 01/10/17 19: Prot Sulfosalicylic Acd Negative mg/dL (0) 01/10/17 19: Urine Urobilinogen Normal EU/dl (NORMAL) 01/10/17 19: Ur Leukocyte Esterase Negative /ul (NEGATIVE) 01/10/17 19: Urine RBC 0-5 /hpf (0-5) 01/10/17 19: Urine WBC Trace /hpf (0-5) 01/10/17 19: Ur Epithelial Cells 0-5 /hpf (0-5) 01/10/17 19: Amorphous Sediment Few - 1+ (NONE-FEW) 01/10/17 19: Urine Bacteria 1+ (NONE) H 01/10/17 19: Hyaline Casts 0-5 /LPF (NONE) H 01/10/17 19:23 Fine Granular Casts 0-5 /LPF (NONE) H 01/10/17 19: Urine Culture Comments Culture to follow 01/10/17: Assessment/Plan - Assessment/Plan (1) Acute kidney injury Assessment: BUN/CR of 27/1.74- Likely due to poor oral intake, jim inhibitors. Given 2 L bolus of NS at the ED and will continue IVF hydration. BMP in am. Problem: Acute (2) Generalized weakness Assessment: Will involve PT/OT, encourage ambulation and will need placement at discharge as his safety is a concern due to frequent falls. Problem: Acute (3) Elevated CRP and ESR Assessment: Noted to have ESR/CRP of 40/22.1. However, no infection on CXR, UA, and WBC was normal. Abdomen is non- acute, no reports of diarrhea, and no recent URI symptom. ER V.S flow sheet also show he was febrile with temps as high as 38.6 and however, the sources are temporal which may have inaccuracies. Will monitor and obtain Oral temps only. The RT knee appears swollen, but pt denies pain. LT knee is not swollen but pt reports pain and that it 'camilo on him all the time.' Spouse reported knees have been bothering him due to Arthritis. It's likely that ESR & CRP elevation is related to the OA of the knees as both values maybe elevated during the symptomatic phase. Consider X-ray of RT knee to check for effusion and to determine if there is need for aspiration of fluid and if it's inflammatory or infectious and also xray of LT knee. Monitor CBC in am Problem: Acute (4) UTI (urinary tract infection) Assessment: Was started on Bactrim previously and has 5 days to complete the dose. However, pt is also on an JIM inhibitor and concurrent use with Bactrim may result in hyperkalemia. Consider switching Ax OR if it has to be continued, then follow- up K level is needed. Problem: Acute (5) Discharge planning issues Assessment: Will likely need placement at discharge. Spouse is desperate for skilled placement of pt due to recurrent falls at home and she is no longer able to provide care for him. Will have case management assist. Problem: Acute (6) Cirrhosis Assessment: Has been alcohol free x 4 months since being diagnosed with Cirrhosis. Problem: Chronic (7) HTN (hypertension) Assessment: Stable- On lisinopril. Problem: Chronic QualifierTitle: Hypertension type: essential hypertension Qualified Code( s): I10 - Essential (primary) hypertension <Jacobo Kaur - Last Filed: 01/11/17 09:34> History of Present Illness: I have examined the patient and reviewed the record. I personally directed directed the care our nurse practitioner hospitalist provided. Immunizations: IMMUNIZATION HX Immunizations Up to Date Yes History of Influenza Vaccine Yes Hx Pneumococcal Vaccination Yes Exam - Exam Vital Signs: Vital Signs - Last Taken Temp 36.7 C 01/11/17 07:05 Pulse 93 01/11/17 08:42 Resp 18 01/11/17 07:05 BP 121/71 01/11/17 08:42 Pulse Ox 95 01/11/17 07:05 Diagnostic Studies: Abnormal Lab Results 01/11/17 01/11/17 Range/Units 06:26 06:26 RBC 4.34 L (4.7-6.0) M/mm3 Hct 40.5 L (42.0-52.0) % MCH 31.8 H (27-31) pg Lymphocytes % 15.3 L (20-51) % Monocytes % 11.6 H (0.0-9) % Lymphocytes # 1.1 L (1.5-3.5) k/mm3 Est GFR (Non-Af Amer) 54 L D (60-130) mL/min Laboratory Results WBC 7.3 K/mm3 (4.0-10.5) D 01/11/17 06:26 RBC 4.34 M/mm3 (4.7-6.0) L 01/11/17 06:26 Hgb 13.8 gm/dL (13.5-18.0) 01/11/17 06:26 Hct 40.5 % (42.0-52.0) L 01/11/17 06:26 MCV 93.3 fl (78-100) 01/11/17 06:26 MCH 31.8 pg (27-31) H 01/11/17 06:26 MCHC 34.1 g/dl (32-36) 01/11/17 06:26 RDW 13.2 % (11.5-14.0) 01/11/17 06:26 Plt Count 188 K/mm3 (150-450) 01/11/17 06:26 MPV 9.0 fl (6.0-9.5) 01/11/17 06:26 Immature Gran % (Auto) 0.40 % (0.001-0.429) 01/11/17 06:26 Immature Gran # (Auto) 0.03 K/mm3 (0.000-0.0310) 01/11/17 06:26 Neutrophils % 71.3 % (42-75.0) 01/11/17 06:26 Lymphocytes % 15.3 % (20-51) L 01/11/17 06:26 Monocytes % 11.6 % (0.0-9) H 01/11/17 06:26 Eosinophils % 1.0 % (0.0-3.0) 01/11/17 06:26 Basophils % 0.4 % (0.0-1.0) 01/11/17 06:26 Nucleated RBC % 0.0 k/mm3 (0-1) 01/11/17 06:26 Neutrophils # 5.2 K/mm3 (1.3-6.0) 01/11/17 06:26 Lymphocytes # 1.1 k/mm3 (1.5-3.5) L 01/11/17 06:26 Monocytes # 0.9 k/mm3 (0.0-1.0) 01/11/17 06:26 Eosinophils # 0.1 k/mm3 (0.0-0.7) 01/11/17 06:26 Absolute Basophils 0.0 k/mm3 (0.0-0.1) 01/11/17 06:26 ESR 40 mm/hr (0-10) H 01/10/17 18:34 Sodium 134 mmol/L (132-142) 01/11/17 06:26 Plasma Sodium 134 mmol/L (130-142) 01/11/17 06:26 Potassium 4.3 mmol/L (3.4-4.6) 01/11/17 06:26 Chloride 102 mmol/L (97-106) 01/11/17 06:26 Carbon Dioxide 26.7 mmol/L (24-32.6) 01/11/17 06:26 Anion Gap 9.6 mmol/L (6.8-13.8) 01/11/17 06:26 BUN 23 mg/dL (6-23) 01/11/17 06:26 Creatinine 1.36 mg/dL (0.4-1.4) 01/11/17 06:26 Est GFR (Non-Af Amer) 54 mL/min (60-130) L D 01/11/17 06:26 BUN/Creatinine Ratio 16.9 (9.0-21.6) 01/11/17 06:26 Random Glucose 107 mg/dL (70-110) 01/11/17 06:26 Lactic Acid, Venous 1.5 mmol/L (0.4-1.9) 01/10/17 18:34 Calcium 8.2 mg/dL (7.9-10.9) 01/11/17 06:26 Calcium Adj for Albumin 9.1 mg/dL (8.4-10.2) 01/10/17 18:34 Total Bilirubin 0.7 mg/dL (0.0-1.1) 01/10/17 18:34 AST 28 U/L (0-48) 01/10/17 18:34 ALT 27 U/L (19-67) 01/10/17 18:34 Alkaline Phosphatase 57 U/L (50-170) 01/10/17 18:34 Creatine Kinase 314 U/L (0-259) H 01/10/17 18:34 C-Reactive Prot, Quant 22.1 mg/dL (0.0-0.9) H 01/10/17 18:34 B-Natriuretic Peptide 370 pg/mL (5-650) 01/10/17 18:34 Total Protein 7.4 gm/dL (6.2-8.2) 01/10/17 18:34 Albumin 3.2 gm/dl (3.4-5.0) L 01/10/17 18:34 Procalcitonin 0.32 ng/mL (0.05-0.50) 01/10/17 18:34 Urine Color Dark yellow 01/10/17 19:23 Urine Appearance Cloudy 01/10/17 19: Urine pH 6.0 pH (5.0-7.0) 01/10/17 19: Ur Specific Angie >=1.030 SP.GR. (1.005-1.030) 01/10/17 19:23 Urine Protein 30 mg/dL (NEGATIVE) H 01/10/17 19:23 Urine Glucose (UA) Negative mg/dL (NEGATIVE) 01/10/17 19: Urine Ketones 5 mg/dL (NEGATIVE) 01/10/17 19:23 Urine Blood 5 /ul (NEGATIVE) H 01/10/17 19:23 Urine Nitrate Negative (NEGATIVE) 01/10/17 19:23 Urine Bilirubin Negative mg/dl (NEGATIVE) 01/10/17 19: Prot Sulfosalicylic Acd Negative mg/dL (0) 01/10/17 19:23 Urine Urobilinogen Normal EU/dl (NORMAL) 01/10/17 19:23 Ur Leukocyte Esterase Negative /ul (NEGATIVE) 01/10/17 19:23 Urine RBC 0-5 /hpf (0-5) 01/10/17 19:23 Urine WBC Trace /hpf (0-5) 01/10/17 19:23 Ur Epithelial Cells 0-5 /hpf (0-5) 01/10/17 19:23 Amorphous Sediment Few - 1+ (NONE-FEW) 01/10/17 19:23 Urine Bacteria 1+ (NONE) H 01/10/17 19:23 Hyaline Casts 0-5 /LPF (NONE) H 01/10/17 19:23 Fine Granular Casts 0-5 /LPF (NONE) H 01/10/17 19:23 Urine Culture Comments Culture to follow 01/10/17 19:23
[2017-01-11] MEDS: NORMAL SALINE 1,000 ML IV PRN ×2 (05:17→13:24)
[2017-01-11 06:32] LABS: Hematocrit 40.5 % (42.0-52.0); Hemoglobin 13.8 gm/dL (13.5-18.0); Mean Cell Volume 93.3 fl (78-100); Mean Corpuscular Hemoglobin 31.8 pg (27-31); Mean Corpuscular Hgb Conc 34.1 g/dl (32-36); Neutrophil # 5.2 K/mm3 (1.3-6.0); Neutrophil % 71.3 % (42-75.0); Platelet Count 188 K/mm3 (150-450); Red Blood Count 4.34 M/mm3 (4.7-6.0); Red Cell Distribution Width 13.2 % (11.5-14.0); White Blood Count 7.3 K/mm3 (4.0-10.5)
[2017-01-11 06:37] LABS: Anion Gap 9.6 mmol/L (6.8-13.8); BUN/Creatinine Ratio 16.9 (9.0-21.6); Calcium * 8.2 mg/dL (7.9-10.9); Carbon Dioxide 26.7 mmol/L (24-32.6); Estimated Creat Clear 45.4; Potassium 4.3 mmol/L (3.4-4.6)
[2017-01-11] MEDS: CALCIUM CARBONATE 500 MG TAB.CHEW PO PRN ×2 (07:11→20:59)
[2017-01-11] MEDS: SULFAMETHOXAZOLE/TRIMETHOPRIM 1 TAB TABLET PO SCH ×2 (08:41→20:59)
[2017-01-11] MEDS: ASPIRIN 81 MG TABLET.DR PO SCH (08:41)
[2017-01-11] MEDS: MULTIVITAMINS 1 CAP CAPSULE PO SCH (08:42)
[2017-01-11] MEDS: ASCORBIC ACID 500 MG TABLET PO SCH (08:42)
[2017-01-11] MEDS: LISINOPRIL 10 MG TABLET PO SCH (08:42)
[2017-01-11] MEDS ORDERED: SULFAMETHOXAZOLE/TRIMETHOPRIM 1 TAB TABLET PO SCH (09:00)
[2017-01-11] MEDS ORDERED: MULTIVITAMIN PO SCH (09:00)
[2017-01-11] MEDS ORDERED: FUROSEMIDE 10 MG/ML VIAL IV ONE (13:39)
[2017-01-11] MEDS: PROBENECID 500 MG TABLET PO SCH (20:59)
[2017-01-11] MEDS: COLCHICINE 0.6 MG TABLET PO SCH (20:59)
[2017-01-12] MEDS: traMADol HCL 50 MG TABLET PO PRN ×2 (01:38→07:56)
[2017-01-12 07:46] VITALS: BP 134/74
[2017-01-12] MEDS: SULFAMETHOXAZOLE/TRIMETHOPRIM 1 TAB TABLET PO SCH (09:17)
[2017-01-12] MEDS: ASCORBIC ACID 500 MG TABLET PO SCH (09:18)
[2017-01-12] MEDS: MULTIVITAMINS 1 CAP CAPSULE PO SCH (09:18)
[2017-01-12] MEDS: LISINOPRIL 10 MG TABLET PO SCH (09:18)
[2017-01-12] MEDS: COLCHICINE 0.6 MG TABLET PO SCH (09:18)
[2017-01-12] MEDS: PROBENECID 500 MG TABLET PO SCH (09:18)
[2017-01-12] MEDS: ASPIRIN 81 MG TABLET.DR PO SCH (09:21)
--- NOTE | 2017-01-12 11:50 | DS ---
(1) Frequent falls Problem: Chronic (2) Generalized weakness Problem: Chronic (3) HTN (hypertension) Problem: Chronic Qualifiers: Hypertension type: essential hypertension Qualified Code(s): I10 - Essential (primary) hypertension (4) Dementia Problem: Chronic Qualifiers: Alzheimer's disease onset: unspecified onset Dementia behavioral disturbance: without behavioral disturbance (5) Discharge planning issues Problem: Chronic (6) UTI (urinary tract infection) Problem: Acute (7) Elevated C-reactive protein (CRP) Problem: Acute Description of Stay: The patient remained stable while in the hospital but weak. He was a very pleasant individual, but remained prone to falling, especially on the left side. Eventually, it worked out that [facility] was a suitable care institution for him, so he will be discharged SNF there today for PT and OT. Procedures Performed: none Discharge Disposition: [facility] Disposition: Other health care facility Condition: Fair Discharge Activity: Activity as tolerated Discharge Diet: General/regular food Discharge Level of Care:: [facility] Therapy: Physicial Therapy, Occupation Therapy Referrals: Matt Rodriguez MD [Primary Care Provider] - Problem Oriented Discharge Instructions to Patient/Family: Deconditioning Additional Patient Instructions (free text): CBC CMP CRP Sed Rate in 2 weeks Prescriptions (Any new or edited meds): Sulfamethoxazole/Trimethoprim [Bactrim] 1 tab PO BID #30 tablet traMADol HCL [Ultram] 50 mg PO QID PRN #100 tablet PRN Reason: Pain Complete Home Medications List: Complete Home Medication List: Aspirin [Aspirin EC] 81 mg PO DAILY 06/02/16 Multivitamins [Multivitamin Abel] 1 cap PO DAILY capsule 07/19/16 Vitamin C 500 mg PO DAILY 12/25/16 Lisinopril [Zestril] 10 mg PO DAILY 01/10/17 Calcium Carbonate [Tums] 500 mg PO TID PRN tab.chew 01/12/17 Sulfamethoxazole/Trimethoprim [Bactrim] 1 tab PO BID #30 tablet 01/12/17 traMADol HCL [Ultram] 50 mg PO QID PRN #100 tablet 01/12/17
== END 2017-01-12 12:36 ==
LOC: ER 18:10 → MS 01-11 00:19
PROVIDERS: ADMIT Nurse Practitioner; ATTEND Allergy & Immunology
PROC: 0T9B7ZZ Drainage of Bladder, Via Natural or Artificial Opening (ICD-10-PCS; principal; 2017-01-10)
DX: R53.1 Weakness (principal); R79.82 Elevated C-reactive protein (CRP); Z91.81 History of falling; I10 Essential (primary) hypertension; N39.0 Urinary tract infection, site not specified; G30.9 Alzheimer's disease, unspecified; F02.80 Dementia in other diseases classified elsewhere, unspecified severity, without behavioral disturbance, psychotic disturbance, mood disturbance, and anxiety; N17.9 Acute kidney failure, unspecified; M17.0 Bilateral primary osteoarthritis of knee; R70.0 Elevated erythrocyte sedimentation rate
CPT/HCPCS: 36415; 51701; 70450; 71010; 80048; 80053; 81001; 82550; 83605; 83880; 84145; 85025; 85652; 86140; 87040; 87086; 94640; 96374; 97110; 97116; 97162; 97165; 99285; G0378; G8978; G8979; G8980; G8987; G8988; G8989

== ENCOUNTER 2017-02-09 08:00 | Day surgery (SDC) | payer MEDICARE ==
[~2017-02-09 08:00] MED LIST: CIPROFLOXACIN HCL 500 MG TABLET PO PRN
[2017-02-09] MEDS ORDERED: LIDOCAINE HCL 10 APPL CARTRIDGE TP ONE (08:49)
[2017-02-09 08:58] VITALS: BP 116/71
== END 2017-02-09 08:01 | disposition home or self-care (01) ==
LOC: AMB 08:00
PROVIDERS: ATTEND Urology
PROC: 3E1K88X Irrigation of Genitourinary Tract using Irrigating Substance, Via Natural or Artificial Opening Endoscopic, Diagnostic (ICD-10-PCS; 2017-02-09)
PROC: 0TJB8ZZ Inspection of Bladder, Via Natural or Artificial Opening Endoscopic (ICD-10-PCS; principal; 2017-02-09 08:30)
DX: N39.0 Urinary tract infection, site not specified (principal); N40.1 Benign prostatic hyperplasia with lower urinary tract symptoms; N13.8 Other obstructive and reflux uropathy; Z87.440 Personal history of urinary (tract) infections; Z68.33 Body mass index [BMI] 33.0-33.9, adult

== ENCOUNTER 2018-03-09 16:47 | Observation (INO) ==
[2018-03-09 17:15] LABS: Hematocrit 46.5 % (42.0-52.0); Hemoglobin 16.1 gm/dL (13.5-18.0); Mean Cell Volume 93.4 fl (78-100); Mean Corpuscular Hemoglobin 32.3 pg (27-31); Mean Corpuscular Hgb Conc 34.6 g/dl (32-36); Mean Platelet Volume 9.1 fl (8-11.3); Methemoglobin % 0.5 % (0.41-1.15); Neutrophil # 12.2 K/mm3 (1.3-6.0); Neutrophil % 87.1 % (42-75.0); Platelet Count 231 K/mm3 (150-450); Red Blood Count 4.98 M/mm3 (4.7-6.0); Red Cell Distribution Width 12.9 % (11.5-14.0)
[2018-03-09] MEDS ORDERED: ONDANSETRON HCL/PF 2 MG/ML VIAL IV ONE (17:15)
[2018-03-09 17:16] LABS: Carboxyhemoglobin % 1.4 % (0.5-1.5)
--- NOTE | 2018-03-09 17:28 | ERNOTE ---
Addendum entered and electronically signed by Matt Saab MD 03/10/18 01:22: patient to be admitted to hospital for observation DX Seizures alcoholic vs non Gi Bleed Admit to DR Holman regular floor Addendum entered and electronically signed by Matt Saab MD 03/10/18 01:09: ct of abdomen no acute disease Original Note: Neuro HPI ER Record Date of Service: 03/09/18 Presenting Symptoms: confusion Time Seen by Provider: 03/09/18 16:53 Source: family, EMS, EMS notes reviewed Exam Limitations: other - neurologically impaired. Immunizations: IMMUNIZATION HX Immunizations Up to Date Yes History of Influenza Vaccine Yes Hx Pneumococcal Vaccination Yes Allergies/Adverse Reactions: Allergies Allergy/AdvReac Type Severity Reaction Status Date / Time No Known Drug Allergies Allergy Verified 03/09/18 17:49 Home Medications: HOME MEDICATIONS Tamsulosin HCl [Flomax] 0.4 mg PO HS 02/07/17 [Last Taken Unknown] Finasteride [Proscar] 5 mg PO DAILY 07/25/17 [Last Taken Unknown] Lisinopril/Hydrochlorothiazide [Lisinopril-Hctz 20-25 mg Tab] 1 each PO DAILY 07/25/17 [Last Taken Unknown] FLUoxetine HCL [Fluoxetine HCl] 10 mg PO DAILY #30 tablet 07/28/17 [Last Taken Unknown] - History of Present Illness Narrative: EMS was called to the home after found patient in bed with blood on his face incoherent. states he may have fallen but not sure. EMS state patient initially unresponsive but enroute became awake with no following of commands. Has a history of seizures. believes he is on seizure medication but we cannot find proof as such. Was found with blood in his mouth, on his face, and incontinent. states patient has not drank for about 6 months. However yesterday she did find some whiskey and 7up on the counter and believes he may have had 2 drinks. None today that she is aware. states he was completely at baseline yesterday but today she noticed he was acting differently and then found him as described. States he had walked across the room and left feces and urine on the floor before ending up on the bed. Date (Duration): 03/09/18 Time (Timing): 15:00 Last Date Known Well: 03/09/18 Last Time Known Well: 13:00 Onset: gradual onset, cannot confirm onset Severity: severe Context: other - unknown. - Character of Deficits Additional Deficits: Present: impaired speech, weakness, off balance Baseline Cognition: Present: alert but disoriented to time Baseline Gait: Present: walks w/o assistance Associated Symptoms: Reports: altered mental status, disoriented, confused, agitated, other Review of Systems - Narrative Narrative: Patient not able to answer questions appropriately. states has baseline dementia but usually takes care of himself very well. - Review of Systems Constitutional: Present: See HPI Social History: Preferred Language Danish Abuse History No History of abuse Psych History No pertinent hx No Social History Section defined Physical Exam - Physical Exam General Appearance: Present: alert Head Exam: Present: no evidence of injury, no tenderness w palpation Eye Exam: Normal inspection: bilateral, PERRL: bilateral, EOMI: bilateral Ears, Nose, Throat: Present: dry mucous membranes, other - Blood in the oral cavity appears may have bitten tongue. Dried blood on both sides of face running down into left EAC Neck: Present: supple, full range of motion. Absent: carotid bruit Respiratory: Present: no respiratory distress, no accessory muscle use, crackles Cardiovascular/Chest: Present: no murmur, tachycardia Peripheral Pulses: N=norm/S=strong/W=weak/B=bound/A=absent: Radial (R): Normal, Radial (L): Normal, Dorsalis-pedis (R): Normal, Dorsalis-pedis (L): Normal Gastrointestinal/Abdominal: Present: normal bowel sounds, nondistended, soft Back Exam: Present: normal inspection, other - No abnormal spinal bony structure. Extremity Exam: Present: normal inspection, other - Moves all extremities well. Neurological Exam: Present: disoriented to time, disoriented to place, disoriented to situation, other - Purposeful movements but does not follow commands. No unilateral weakness. No ptosis or facial droop. Skin Exam: Present: warm/dry Olden Coma Scale - Assess Eye Opening: Spontaneous Motor: Localizes to Pain Verbal: Confused - Total Coma Scale Total: 13 Progress - Results and Orders Patient's Lab Results:: I have reviewed the patient's lab results. - Vital Signs Patient's Vital Signs:: I have reviewed the patient's vital signs. Vital Signs: Vital Signs 12/15/18 16:59 03/09/18 17:12 Temperature 36.8 C Pulse Rate 114 H 106 H Respiratory Rate 23 H 15 Blood Pressure 147/93 H O2 Sat by Pulse Oximetry 88 L 90 L - EKG EKG read: Interp. by me - Sinus tach with 1st degree block - X-Ray X-Ray #1 X-Ray: chest - No acute consolidation. - CT/Ultrasound CT/Ultrasound Narrative: CT head/Cervical - No acute findings. Remote infarcts of basal ganglia. - Progress/Reassessment Chief Complaint: Altered Mental Status Progress:: Improved - Transfer of Care Physician Sign Out: Paola Serrano Brief History: oral report given. Receiving Physician: Matt Saab Pending Results: CT/MRI results Expected Disposition: Admit Additional Notes: Creatinine Clearance [address] Saab who will resume care of the patient. Departure Clinical Impression: Alcohol withdrawal seizure Qualifiers: Complication of substance-induced condition: with delirium Qualified Code(s): F10.231 - Alcohol dependence with withdrawal delirium Bloody emesis Qualifiers: Nausea presence: with nausea Qualified Code(s): K92.0 - Hematemesis - Departure Disposition: Still a patient Condition: Stable Referrals: Matt Rodriguez MD [Primary Care Provider] -
[2018-03-09 17:33] LABS: ALT 27 U/L (19-67); AST 24 U/L (0-48); Albumin * 3.6 gm/dl (3.4-5.0); Alkaline Phosphatase * 50 U/L (50-170); Anion Gap 17.1 mmol/L (6.8-13.8); BUN/Creatinine Ratio 12.1 (9.0-21.6); Bilirubin, Total 0.7 mg/dL (0.0-1.1); Blood Urea Nitrogen 19 mg/dL (6-23); Ca. Corrected For Albumin 9.5 mg/dL (8.4-10.2); Calcium * 9.5 mg/dL (7.9-10.9); Carbon Dioxide 22.8 mmol/L (24-32.6); Chloride 101 mmol/L (97-106); Glucose * 166 mg/dL (70-110); Potassium 3.9 mmol/L (3.4-4.6); Sodium 137 mmol/L (132-142); Total Protein 7.1 gm/dL (6.2-8.2); Troponin I Less than 0.017 ng/mL (0.00-0.10)
[2018-03-09] MEDS ORDERED: NORMAL SALINE 1,000 ML IV ONE ×2 (17:51→17:52)
[2018-03-09 17:54] LABS: Urine Appearance Slightly Cloudy (CLEAR); Urine Bilirubin Negative (NEGATIVE); Urine Blood 25 /ul (NEGATIVE); Urine Color Yellow; Urine Ketone 15 mg/dL (NEGATIVE); Urine Nitrite Negative (NEGATIVE); Urine Protein Negative (NEGATIVE); Urine Urobilinogen Normal (NORMAL); Urine pH 5.5 pH (5.0-7.0)
[2018-03-09 17:55] LABS: Urine Amorphous Sediment Few - 1+ (NONE-FEW); Urine Bacteria None Seen; Urine RBC 0-5 /hpf (0-5); Urine WBC 0-5 /hpf (0-5)
[2018-03-09 17:56] LABS: Cocaine Ur Negative (NEGATIVE); Urine Barbiturate Negative (NEGATIVE); Urine Benzodiazepines Negative (NEGATIVE); Urine Opiates Negative (NEGATIVE); Urine PCP Negative (NEGATIVE); Urine THC Negative (NEGATIVE)
[2018-03-09] MEDS ORDERED: PIPERACILLIN SODIUM/TAZOBACTAM 2.25 GM in DEXTROSE 5 % IN WATER 100 ML IV ONE ×2 (17:56)
[2018-03-09] MEDS ORDERED: LORazepam 2 MG/ML DISP.SYRIN IV ONE (18:42)
[2018-03-09] MEDS ORDERED: LORazepam 2 MG/ML DISP.SYRIN IM ONE (18:57)
--- NOTE | 2018-03-09 20:57 | ANES ---
Anesthesia Procedure Note Procedure Note: ANESTHESIA PROCEDURE NOTE Date of procedure:[]. 03/09/2018 Time of procedure:[]. 2049 Performed by: Enrique Diamond CRNA Light Bulb Replacer: [] None . Preprocedure diagnosis: []. Unresponsive. Difficult IV access. Post procedure diagnosis: Same. Procedure:[] IV start Indications: []. Difficult IV access Findings: [] 22-gauge IV started in patient's left arm EBL: Minimal. Fluids: N/A. Specimen: N/A. Post procedure condition: The patient tolerated the procedure well. No complications were noted. Thank you for this consultation Enrique Diamond CRNA
[2018-03-10] MEDS ORDERED: NORMAL SALINE 1,000 ML IV ONE (06:06)
[2018-03-10] MEDS ORDERED: LORazepam 2 MG/ML DISP.SYRIN IV PRN (09:38)
--- NOTE | 2018-03-10 10:24 | HP ---
Chief Complaint - Chief Complaint Date of Service: 03/10/18 Time of Service: 09:41 Chief Complaint: fall, confusion, possible seizure, alcohol use History of Present Illness: History obtained primarily via chart review. No family present, and patient repeatedly asks "What did the doctor say?" during my exam. Patient with PMHx of HTN, dementia, intermittent alcohol use was brought to the ED via EMS after his found him face down with blood on his face and incoherent. She thinks he may have had a couple of drinks the day prior to admission. He states he fell due to knee pain. Lab work shows slightly elevated WBC to 14, slight increase in creatinine to 1.57, and slight glucose elevation of 166. UA was concentrated, and was positive for blood. Urine culture pending. Initial lactic acid was 6.8, improved to 1.2 after fluids. He was combative, trying to pull out his IV and oxygen, and was given ativan in the ED. Medical History (Last Updated 03/10/18 @ 04:28 by Briana Golden RN) Alcohol abuse Hypertension Seizure Surgical History: Surgical History (Last Updated 03/10/18 @ 04:29 by Briana Golden RN) Colonoscopy planned History of esophagogastroduodenoscopy (EGD) Family History: Family History (Last Updated 03/10/18 @ 04:29 by Briana Golden RN) Father Lung cancer Sister Heart problem Lung cancer Mother Breast cancer Hypertension Social History: Patient Lives/Resources Home Utilized Occupation Retired Preferred Language Icelandic Do you have any sikhism or No cultural preference? Smoking Status Former smoker Have you smoked in the past 12 No months Do you dip or chew tobacco No Abuse History No History of abuse Psych History No pertinent hx No Social History Section defined Review Of Systems (GEN) - Review of Systems Generalized/Overall Review: Absent: Fever Respiratory: Absent: Cough, Shortness of Breath Cardiac: Absent: Chest Pain, Edema Abdominal: Absent: Nausea, Vomiting, Diarrhea Musculoskeletal: Present: Joint Pain - knees Immunizations: IMMUNIZATION HX Immunizations Up to Date Yes History of Influenza Vaccine Yes Hx Pneumococcal Vaccination Yes Allergies/Adverse Reactions: Allergies Allergy/AdvReac Type Severity Reaction Status Date / Time No Known Drug Allergies Allergy Verified 03/09/18 17:49 Home Medications: HOME MEDICATIONS Tamsulosin HCl [Flomax] 0.4 mg PO HS 02/07/17 [Last Taken Unknown] Finasteride [Proscar] 5 mg PO DAILY 07/25/17 [Last Taken Unknown] Lisinopril/Hydrochlorothiazide [Lisinopril-Hctz 20-25 mg Tab] 1 each PO DAILY 07/25/17 [Last Taken Unknown] Exam - Exam Vital Signs: Vital Signs - Last Taken Temp 37.5 C 03/10/18 09:00 Pulse 67 03/10/18 09:00 Resp 18 03/10/18 09:00 BP 100/58 03/10/18 09:00 Pulse Ox 94 03/10/18 09:00 Constitutional: Present: No distress - sleepy, answers questions, but asks the same question repeatedly, Obese ENT Exam: Present: dry mucous membranes Respiratory: Present: lungs clear, normal breath sounds, no respiratory distress Cardiovascular/Chest: Present: regular rate, rhythm Abdomen: Present: Normal bowel sounds, soft, nontender Extremity: Absent: lower extremity edema Eye contact: Present: decreased rate of speech Diagnostic Studies: Abnormal Lab Results 03/09/18 03/09/18 03/09/18 Range/Units 17:00 17:00 17:00 WBC 14.0 H (4.0-10.5) K/mm3 MCH 32.3 H (27-31) pg Immature Gran % (Auto) 0.50 H (0.001-0.429) % Immature Gran # (Auto) 0.07 H (0.000-0.0310) K/mm3 Neutrophils % 87.1 H (42-75.0) % Lymphocytes % 6.5 L (20-51) % Neutrophils # 12.2 H (1.3-6.0) K/mm3 Lymphocytes # 0.90 L (1.5-3.5) k/mm3 pCO2 (35.0-48.0) mmHg pO2 (83.0-108.0) mmHg HCO3 (21.0-28.0) mmol/L Base Excess (-2.0-3.0) mmol/L ABG O2 Sat (Measured) (94.0-98.0) % Carbon Dioxide 22.8 L (24-32.6) mmol/L Anion Gap 17.1 H (6.8-13.8) mmol/L Creatinine 1.57 H D (0.4-1.4) mg/dL Est GFR (Non-Af Amer) 46 L D (60-130) mL/min Random Glucose 166 H (70-110) mg/dL Lactic Acid, Venous 6.8 H* (0.4-2.0) mmol/L Urine Blood (NEGATIVE) /ul Gastric Occult Blood 03/09/18 03/09/18 03/09/18 Range/Units 17:18 17:20 17:44 WBC (4.0-10.5) K/mm3 MCH (27-31) pg Immature Gran % (Auto) (0.001-0.429) % Immature Gran # (Auto) (0.000-0.0310) K/mm3 Neutrophils % (42-75.0) % Lymphocytes % (20-51) % Neutrophils # (1.3-6.0) K/mm3 Lymphocytes # (1.5-3.5) k/mm3 pCO2 31.0 L (35.0-48.0) mmHg pO2 67.9 L (83.0-108.0) mmHg HCO3 18.9 L (21.0-28.0) mmol/L Base Excess -4.5 L (-2.0-3.0) mmol/L ABG O2 Sat (Measured) 93.9 L (94.0-98.0) % Carbon Dioxide (24-32.6) mmol/L Anion Gap (6.8-13.8) mmol/L Creatinine (0.4-1.4) mg/dL Est GFR (Non-Af Amer) (60-130) mL/min Random Glucose (70-110) mg/dL Lactic Acid, Venous (0.4-2.0) mmol/L Urine Blood 25 H (NEGATIVE) /ul Gastric Occult Blood Positive H Laboratory Results WBC 14.0 K/mm3 (4.0-10.5) H 03/09/18 17:00 RBC 4.98 M/mm3 (4.7-6.0) 03/09/18 17:00 Hgb 16.1 gm/dL (13.5-18.0) 03/09/18 17:00 Hct 46.5 % (42.0-52.0) 03/09/18 17:00 MCV 93.4 fl (78-100) 03/09/18 17:00 MCH 32.3 pg (27-31) H 03/09/18 17:00 MCHC 34.6 g/dl (32-36) 03/09/18 17:00 RDW 12.9 % (11.5-14.0) 03/09/18 17:00 Plt Count 231 K/mm3 (150-450) 03/09/18 17:00 MPV 9.1 fl (8-11.3) 03/09/18 17:00 Immature Gran % (Auto) 0.50 % (0.001-0.429) H 03/09/18 17:00 Immature Gran # (Auto) 0.07 K/mm3 (0.000-0.0310) H 03/09/18 17:00 Neutrophils % 87.1 % (42-75.0) H 03/09/18 17:00 Lymphocytes % 6.5 % (20-51) L 03/09/18 17:00 Monocytes % 5.8 % (0.0-9) 03/09/18 17:00 Eosinophils % 0.0 % (0.0-3.0) 03/09/18 17:00 Basophils % 0.1 % (0.0-1.0) 03/09/18 17:00 Nucleated RBC % 0.0 k/mm3 (0-1) 03/09/18 17:00 Neutrophils # 12.2 K/mm3 (1.3-6.0) H 03/09/18 17:00 Lymphocytes # 0.90 k/mm3 (1.5-3.5) L 03/09/18 17:00 Monocytes # 0.8 k/mm3 (0.0-1.0) 03/09/18 17:00 Eosinophils # 0.0 k/mm3 (0.0-0.7) 03/09/18 17:00 Absolute Basophils 0.0 k/mm3 (0.0-0.1) 03/09/18 17:00 pCO2 31.0 mmHg (35.0-48.0) L 03/09/18 17:18 pO2 67.9 mmHg (83.0-108.0) L 03/09/18 17:18 HCO3 18.9 mmol/L (21.0-28.0) L 03/09/18 17:18 Total CO2 19.9 mmol/L (19.0-24.0) 12/15/18 17:18 Base Excess -4.5 mmol/L (-2.0-3.0) L 03/09/18 17:18 ABG pH 7.40 (7.35-7.45) 03/09/18 17:18 ABG O2 Sat (Measured) 93.9 % (94.0-98.0) L 03/09/18 17:18 Carboxyhemoglobin 1.4 % (0.5-1.5) 03/09/18 17:00 Methemoglobin 0.5 % (0.41-1.15) 03/09/18 17:00 Sodium 137 mmol/L (132-142) 03/09/18 17:00 Plasma Sodium 138 mmol/L (130-142) 03/09/18 17:00 Potassium 3.9 mmol/L (3.4-4.6) 03/09/18 17:00 Chloride 101 mmol/L (97-106) 03/09/18 17:00 Carbon Dioxide 22.8 mmol/L (24-32.6) L 03/09/18 17:00 Anion Gap 17.1 mmol/L (6.8-13.8) H 03/09/18 17:00 BUN 19 mg/dL (6-23) 03/09/18 17:00 Creatinine 1.57 mg/dL (0.4-1.4) H D 03/09/18 17:00 Est GFR (Non-Af Amer) 46 mL/min (60-130) L D 03/09/18 17:00 BUN/Creatinine Ratio 12.1 (9.0-21.6) 03/09/18 17:00 Random Glucose 166 mg/dL (70-110) H 03/09/18 17:00 Lactic Acid, Venous 1.2 mmol/L (0.4-2.0) 03/09/18 21:25 Calcium 9.5 mg/dL (7.9-10.9) 03/09/18 17:00 Calcium Adj for Albumin 9.5 mg/dL (8.4-10.2) 03/09/18 17:00 Magnesium 1.7 mg/dL (1.2-2.8) 03/09/18 21:00 Total Bilirubin 0.7 mg/dL (0.0-1.1) 12/15/18 17:00 AST 24 U/L (0-48) 03/09/18 17:00 ALT 27 U/L (19-67) 03/09/18 17:00 Alkaline Phosphatase 50 U/L (50-170) 03/09/18 17:00 Troponin I Less than 0.017 ng/mL (0.00-0.10) 03/09/18 17:00 Total Protein 7.1 gm/dL (6.2-8.2) 03/09/18 17:00 Albumin 3.6 gm/dl (3.4-5.0) 03/09/18 17:00 Urine Color Yellow 03/09/18 17:44 Urine Appearance Slightly cloudy (CLEAR) 03/09/18 17:44 Urine pH 5.5 pH (5.0-7.0) 03/09/18 17:44 Ur Specific [place] 1.030 SP.GR. (1.005-1.030) 03/09/18 17:44 Urine Protein Negative mg/dL (NEGATIVE) 03/09/18 17:44 Urine Glucose (UA) Negative mg/dL (NEGATIVE) 03/09/18 17:44 Urine Ketones 15 mg/dL (NEGATIVE) 03/09/18 17:44 Urine Blood 25 /ul (NEGATIVE) H 03/09/18 17:44 Urine Nitrate Negative (NEGATIVE) 03/09/18 17:44 Urine Bilirubin Negative mg/dl (NEGATIVE) 03/09/18 17:44 Urine Urobilinogen Normal EU/dl (NORMAL) 03/09/18 17:44 Ur Leukocyte Esterase Negative /ul (NEGATIVE) 03/09/18 17:44 Urine RBC 0-5 /hpf (0-5) 03/09/18 17:44 Urine WBC 0-5 /hpf (0-5) 03/09/18 17:44 Ur Epithelial Cells None seen /hpf (0-5) 03/09/18 17:44 Amorphous Sediment Few - 1+ (NONE-FEW) 03/09/18 17:44 Urine Bacteria None seen (NONE) 03/09/18 17:44 Urine Culture Comments No culture indicated 03/09/18 17:44 Gastric Occult Blood Positive H 03/09/18 17:20 Urine Opiates Screen Negative (NEGATIVE) 03/09/18 17:44 Barbiturate Screen Negative (NEGATIVE) 03/09/18 17:44 Ur Phencyclidine Scrn Negative (NEGATIVE) 03/09/18 17:44 Urine Amphetamine Negative (NEGATIVE) 03/09/18 17:44 U Benzodiazepines Scrn Negative (NEGATIVE) 03/09/18 17:44 Urine Cocaine Screen Negative (NEGATIVE) 03/09/18 17:44 Urine Marijuana (THC) Negative (NEGATIVE) 03/09/18 17:44 Ethyl Alcohol Less than 3.0 mg/dL (0.0-10.0) 03/09/18 17:00 Assessment/Plan - Assessment/Plan (1) Confusion Assessment: Ddx includes alcohol use, dehydration, seizure, hypoxemia, electrolyte abnormalities, infection, medication side effect. CDT pending to assess for extent of recent alcohol use. Admission ETOH was not elevated. He did have an anion gap of 17.1 on admission, supporting some dehydration. Chart review shows he is not currently prescribed seizure medications. Was administered keppra in the ED. No significant electrolyte abnormalities. His pO2 on ABG was slightly low at 67.9. He was given oxygen via NC and has been oxygenating greater than 92%. No obvious infectious source, but he did have some blood on his UA, culture pending. Will continue to assess for improvement throughout the day, and if he improved with fluids, his acute confusion is likely secondary to alcohol use. Will assess his ability to swallow at bedside prior to starting diet, and administer IV fluids until then. Problem: Resolved (2) Hematuria Assessment: His UA showed some hematuria, but was very concentrated. Urine culture pending, and administering fluids. Problem: Acute (3) Alcohol abuse Assessment: CDT pending. [facility] protocol in place, and will administer ativan if needed. He did have an elevated lactate initially, improved after fluids. Acute alcohol use can increase the lactate. His initial BP readings were elevated, making hypoperfusion less likely. Problem: Acute (4) Dementia Problem: Chronic (5) HTN (hypertension) Assessment: BP not currently elevated, with last two readings of 100/58. Holding home lisinopril-HCTZ. Problem: Chronic Qualifiers:
--- NOTE | 2018-03-10 10:38 | PN ---
Cailin Note - Interim Date: 03/10/18 Time: 10:35 Narrative: 03/10/18 10:35 Patient's arrived, and discussed the progression of his dementia. She feels like it is getting worse, and she can not care for him at home. She would like for him to go to a retirement if possible after discharge.
--- NOTE | 2018-03-11 06:46 | PN ---
Progess Note - Interim Date: 03/11/18 Time: 06:42 Narrative: 03/11/18 06:42 Pt. w/o complaint this am except for his tongue being sore. PE: Alert Ox3. Knows where he is and date and why he's here. CTA aaron, RRR no murmur tongue does have white coating and bite cantrell CN2-12 grossly intact. Slight dysmetria on the left when crossing midline. A/P: Seizure most likely EtOH related - w/d seizure. continue prn ativan. Discharge - later today, but will not agree to NH placement and can't be forced as he is oriented. It is possible he has a waxing and waning pattern, most likely EtOH related, but I don't see him going willingly and that's the only way I can see him being placed. It would also be a private pay situation, which I believe was an issue in the past. wasn't present to discuss it all with her.
[2018-03-11] MEDS: NYSTATIN 60 ML BTL PO SCH ×2 (08:14→13:37)
--- NOTE | 2018-03-11 12:29 | DS ---
(1) Alcohol withdrawal seizure Problem: Acute Qualifiers: Complication of substance-induced condition: with delirium Qualified Code(s): F10.231 - Alcohol dependence with withdrawal delirium (2) Bloody emesis Problem: Acute Qualifiers: Nausea presence: with nausea Qualified Code(s): K92.0 - Hematemesis (3) Alcohol abuse Problem: Acute (4) Oral thrush Problem: Resolved Description of Stay: Pt. admitted for observation following what appeared to be a seizure and possibly a GI bleed. Due to confusion and possible NH placement patient was held over an additional midnight, but his confusion resolved within this time frame and he was back to baseline mentation, Alert Ox3, so placement would not be appropriate. Pt. advised not to drink, but he continues to deny he is drinking "much" so what does it matter. He was noted to possibly have some thrush so will do nystatin. He is not able to drive, more due to he does not pay attention very well. He is at high risk for falls and decline in health due to EtOH consumption, recurrent seizures and non-compliance with medications. Feel Home health would be valuable to do ongoing assessment of patient at home with assistance as needed for bathing and in home assessment for fall risk and behavorial issues that put him at risk. He may also gain some benefit from PT in the home to help prevent falls. Procedures Performed: none Results and Findings: Pending Mircobiology Results 03/09/18 Unknown Urine,Voided Urine Culture - Preliminary No Growth 03/09/18 17:17 Blood Blood Culture - Preliminary NO GROWTH 24 HOURS 03/09/18 17:00 Blood Blood Culture - Preliminary NO GROWTH 24 HOURS Lab Pending Results 03/09/18 17:00: WBC 14.0 H, RBC 4.98, Hgb 16.1, Hct 46.5, MCV 93.4, MCH 32.3 H, MCHC 34.6, RDW 12.9, Plt Count 231, MPV 9.1, Immature Gran % (Auto) 0.50 H, Immature Gran # (Auto) 0.07 H, Neutrophils % 87.1 H, Lymphocytes % 6.5 L, Monocytes % 5.8, Eosinophils % 0.0, Basophils % 0.1, Nucleated RBC % 0.0, Neutrophils # 12.2 H, Lymphocytes # 0.90 L, Monocytes # 0.8, Eosinophils # 0.0, Absolute Basophils 0.0 03/09/18 17:00: Sodium 137, Plasma Sodium 138, Potassium 3.9, Chloride 101, Carbon Dioxide 22.8 L, Anion Gap 17.1 H, BUN 19, Creatinine 1.57 H D, Est GFR (Non-Af Amer) 46 L D, BUN/Creatinine Ratio 12.1, Random Glucose 166 H, Calcium 9.5, Calcium Adj for Albumin 9.5, Total Bilirubin 0.7, AST 24, ALT 27, Alkaline Phosphatase 50, Troponin I Less than 0.017, Total Protein 7.1, Albumin 3.6 03/09/18 17:00: Carboxyhemoglobin 1.4, Methemoglobin 0.5 03/09/18 17:00: Ethyl Alcohol Less than 3.0 03/09/18 17:00: Lactic Acid, Venous 6.8 H* 03/09/18 17:18: pCO2 31.0 L, pO2 67.9 L, HCO3 18.9 L, Total CO2 19.9, Base Excess -4.5 L, ABG pH 7.40, ABG O2 Sat (Measured) 93.9 L 03/09/18 17:20: Gastric Occult Blood Positive H 03/09/18 17:44: Urine Color Yellow, Urine Appearance Slightly cloudy, Urine pH 5.5, Ur Specific [place] 1.030, Urine Protein Negative, Urine Glucose (UA) Negative, Urine Ketones 15, Urine Blood 25 H, Urine Nitrate Negative, Urine Bilirubin Negative, Urine Urobilinogen Normal, Ur Leukocyte Esterase Negative, Urine RBC 0-5, Urine WBC 0-5, Ur Epithelial Cells None seen, Amorphous Sediment Few - 1+, Urine Bacteria None seen, Urine Culture Comments No culture indicated 03/09/18 17:44: Urine Opiates Screen Negative, Barbiturate Screen Negative, Ur Phencyclidine Scrn Negative, Urine Amphetamine Negative, U Benzodiazepines Scrn Negative, Urine Cocaine Screen Negative, Urine Marijuana (THC) Negative 03/09/18 21:00: Magnesium 1.7 03/09/18 21:25: Lactic Acid, Venous 1.2 Discharge Location: Home Disposition: Home Health Service [facility] Agency: [facility] Home Health Condition: Stable Face to Face Encounter completed per CMS Guidelines: Yes Discharge Activity: Activity as tolerated Discharge Diet: General/regular food Referrals: Matt Rodriguez MD [Primary Care Provider] - Two Weeks Problem Oriented Discharge Instructions to Patient/Family: Alcohol Use Disorder, Seizure, Adult, [id number] Additional Patient Instructions (free text): [facility] new at discharge- nursing and bath aid. - Follow up with Dr. Rodriguez 03/15 at 10:15am Prescriptions (Any new or edited meds): Nystatin [Mycostatin 100 Mu/Ml Suspension] 5 ml PO QID #280 btl Complete Home Medications List: Complete Home Medication List: Tamsulosin HCl [Flomax] 0.4 mg PO HS 02/07/17 Finasteride [Proscar] 5 mg PO DAILY 07/25/17 Lisinopril/Hydrochlorothiazide [Lisinopril-Hctz 20-25 mg Tab] 1 each PO DAILY 07/25/17 Nystatin [Mycostatin 100 Mu/Ml Suspension] 5 ml PO QID #280 btl 03/11/18
[2018-03-11 17:11] VITALS: BP 140/78
== END 2018-03-11 17:00 | disposition home health service (06) ==
LOC: MS 16:47 → ER 16:47
PROVIDERS: ADMIT Family Medicine; ATTEND Family Medicine
DX: R41.82 Altered mental status, unspecified
CPT/HCPCS: 36415; 36600; 70450; 71010; 71045; 72125; 74177; 80053; 80307; 80320; 81001; 82272; 82373; 82375; 82803; 83605; 83735; 84484; 85025; 87040; 87086; 93005; 96361; 96365; 96372; 96375; 97116; 97161; 99283; G0378; G0479; G0481; G8978; G8979; G8980; J2405

== ENCOUNTER 2018-05-21 13:35 | Observation (INO) ==
[2018-05-21 14:17] LABS: Hematocrit 49.3 % (42.0-52.0); Hemoglobin 17.3 gm/dL (13.5-18.0); Mean Cell Volume 92.8 fl (78-100); Mean Corpuscular Hemoglobin 32.6 pg (27-31); Mean Corpuscular Hgb Conc 35.1 g/dl (32-36); Mean Platelet Volume 9.1 fl (8-11.3); Neutrophil # 13.1 K/mm3 (1.3-6.0); Neutrophil % 88.4 % (42-75.0); Platelet Count 247 K/mm3 (150-450); Red Blood Count 5.31 M/mm3 (4.7-6.0); Red Cell Distribution Width 12.9 % (11.5-14.0); White Blood Count 14.8 K/mm3 (4.0-10.5)
[2018-05-21 14:25] LABS: ALT 29 U/L (19-67); AST 29 U/L (0-48); Albumin * 3.9 gm/dl (3.4-5.0); Alkaline Phosphatase * 51 U/L (50-170); Anion Gap 11.2 mmol/L (6.8-13.8); BUN/Creatinine Ratio 11.5 (9.0-21.6); Bilirubin, Total 0.9 mg/dL (0.0-1.1); Blood Urea Nitrogen 15 mg/dL (6-23); Ca. Corrected For Albumin 10.1 mg/dL (8.4-10.2); Calcium * 10.3 mg/dL (7.9-10.9); Carbon Dioxide 32.8 mmol/L (24-32.6); Chloride 102 mmol/L (97-106); Glucose * 141 mg/dL (70-110); Sodium 142 mmol/L (132-142); Total Protein 7.7 gm/dL (6.2-8.2)
[2018-05-21] MEDS ORDERED: LORazepam 2 MG/ML DISP.SYRIN ONE (14:26)
[2018-05-21] MEDS ORDERED: MULTIVIT INFUSN,ADULT 4,VIT K 10 ML, THIAMINE HCL 100 MG in NORMAL SALINE 1,000 ML IV SCH (14:30)
[2018-05-21] MEDS ORDERED: LORazepam 2 MG/ML DISP.SYRIN IV ONE (15:02)
[2018-05-21 15:40] LABS: Urine Bilirubin Negative (NEGATIVE); Urine Blood 25 /ul (NEGATIVE); Urine Ketone Negative (NEGATIVE); Urine Nitrite Negative (NEGATIVE); Urine Protein Negative (NEGATIVE); Urine Specific Gravity >=1.030 SP.GR. (1.005-1.030); Urine Urobilinogen Normal (NORMAL); Urine pH 5.5 pH (5.0-7.0)
[2018-05-21 15:49] LABS: Urine Appearance Clear (CLEAR); Urine Bacteria 2+; Urine Color Yellow; Urine RBC None Seen /hpf (0-5); Urine WBC None Seen /hpf (0-5)
[2018-05-21 15:50] LABS: Urine Amorphous Sediment Moderate - 2+ (NONE-FEW); Urine Mucus Few - 1+
[2018-05-21 15:55] LABS: Cocaine Ur Negative (NEGATIVE); Urine Barbiturate Negative (NEGATIVE); Urine Benzodiazepines Negative (NEGATIVE); Urine Opiates Negative (NEGATIVE); Urine PCP Negative (NEGATIVE); Urine THC Negative (NEGATIVE)
--- NOTE | 2018-05-21 16:02 | ERNOTE ---
Neuro HPI ER Record Date of Service: 05/21/18 Presenting Symptoms: falling, other - reported seizure Time Seen by Provider: 05/21/18 13:45 Source: family, EMS Exam Limitations: clinical condition Immunizations: IMMUNIZATION HX Immunizations Up to Date Yes History of Influenza Vaccine Yes Hx Pneumococcal Vaccination Yes Allergies/Adverse Reactions: Allergies Allergy/AdvReac Type Severity Reaction Status Date / Time No Known Drug Allergies Allergy Verified 03/15/18 10:45 Home Medications: HOME MEDICATIONS Finasteride [Proscar] 5 mg PO DAILY 07/25/17 [Last Taken Unknown] ascorbic acid (vitamin C) 500 mg tablet 500 mg PO DAILY 03/15/18 [Last Taken Unknown] menthol 4 % topical gel 4 % TP DAILY ml 03/15/18 [Last Taken Unknown] multivitamin,hb-ujup-webhfuvi tablet 1 tab PO DAILY 03/15/18 [Last Taken Unknown] tamsulosin 0.4 mg capsule 0.4 mg PO HS #30 cap 03/15/18 [Last Taken Unknown] lisinopril 20 mg-hydrochlorothiazide 12.5 mg tablet 1 tab PO BID #60 tab 03/29/18 [Last Taken Unknown] - History of Present Illness Narrative: patient presents with probable seizure, relates patient has hx of chronic alcoholism, recently found alcohol and consumed a large amount 1-2 days [employer], has had similair circumstances in the past, patient present with slurred speech Onset: cannot confirm onset Severity: moderate Context: fall, injury - head - Character of Deficits New weakness: Present: general (diffuse) Additional Deficits: Present: impaired speech, decrease ability to stand, decrease ability to walk, weakness, off balance Baseline Cognition: Present: alert, oriented x 4 Baseline Gait: Present: walks w/o assistance Associated Symptoms: Reports: altered mental status Prior Treament: Reports: similar symptoms before Review of Systems - Review of Systems Constitutional: Present: See HPI, weakness, fatigue, malaise EYE: Present: no symptoms reported ENT: Present: See HPI, other - crusted blood in oral pharynx Respiratory: Present: no symptoms reported Cardiology: Present: no symptoms reported Gastrointestinal/Abdominal: Present: no symptoms reported Genitourinary: Present: no symptoms reported Musculoskeletal: Present: no symptoms reported Skin: Present: no symptoms reported Neurological: Present: See HPI, dizziness/light-headedness Endocrine: Present: no symptoms reported Hematologic/Lymphatic: Present: no symptoms reported Psych: Present: no symptoms reported All Other Systems: All systems neg except as marked Medical History (Last Updated 05/21/18 @ 14:03 by Cassandra Hayes RN) Hypertension (Chronic) Onset Date: Unknown Erectile dysfunction (Chronic) Onset Date: Unknown Cirrhosis (Chronic) Onset Date: ~09/04/16 Alcohol abuse (Chronic) BPH (benign prostatic hyperplasia) Onset Date: Unknown Hypertension Incontinence Influenza vaccine refused Onset Date: ~03/15/18 Onychomycosis Onset Date: Unknown Seizure Surgical History: Surgical History (Last Reviewed 05/21/18 @ 13:44 by Cassandra Hayes RN) Colonoscopy planned H/O adenoidectomy Onset Date: Unknown H/O esophagogastroduodenoscopy Onset Date: ~07/14/16 clotest negative History of colonoscopy Onset Date: ~2006 History of esophagogastroduodenoscopy (EGD) History of tonsillectomy Family History: Family History (Last Reviewed 05/21/18 @ 13:44 by Cassandra Hayes RN) Father Lung cancer Sister Heart problem Lung cancer Mother Breast cancer Hypertension Social History: Preferred Language Ethiopian Do you have any jain or No cultural preference? Smoking Status Former smoker Abuse History No History of abuse Psych History No pertinent hx (Last Updated 03/16/18 @ 09:18 by Matt Rodriguez MD) No Social History Section defined Physical Exam - Physical Exam General Appearance: Present: mild distress, lethargic Head Exam: Present: other - custed blood in oropharynx Eye Exam: Normal inspection: bilateral, PERRL: bilateral, EOMI: bilateral Ears, Nose, Throat: Present: other - crusted blood in oropharynx Neck: Present: normal inspection, nontender Respiratory: Present: no respiratory distress, normal breath sounds, no accessory muscle use, chest nontender, lungs clear Cardiovascular/Chest: Present: regular rate, rhythm, no murmur, normal peripheral pulses Peripheral Pulses: N=norm/S=strong/W=weak/B=bound/A=absent: Carotid (R): Normal, Carotid (L): Normal, Radial (R): Normal, Radial (L): Normal, Femoral (R): Normal, Femoral (L): Normal, Dorsalis-pedis (R): Normal, Dorsalis-pedis (L): Normal Gastrointestinal/Abdominal: Present: normal bowel sounds, nontender, nondistended, soft, no organomegaly Back Exam: Present: normal inspection, normal range of motion, no CVA tender ness, no vertebral tenderness Extremity Exam: Present: normal inspection, non-tender, normal range of motion, no edema Neurological Exam: Present: alert, oriented, normal mood/affect, no motor/sensory deficits Skin Exam: Present: normal color, warm/dry Lymphatic Exam: Present: no adenopathy [place] Coma Scale - Assess Eye Opening: Spontaneous Motor: Obeys Commands Verbal: Confused - Total Coma Scale Total: 14 Progress - Date and Time Seen: Date and Time: 05/21/18 17:43 patient improved somewhat, case discussed with dr quan ,accepted to admit to observation - Results and Orders Patient's Lab Results:: I have reviewed the patient's lab results. - Vital Signs Patient's Vital Signs:: I have reviewed the patient's vital signs. Vital Signs: Vital Signs 05/21/18 13:39 05/21/18 14:31 05/21/18 15:19 Temperature 36.3 C Pulse Rate 97 97 101 H Respiratory Rate 21 H 17 Blood Pressure 136/86 126/79 O2 Sat by Pulse Oximetry 90 L 94 - EKG EKG #1 EKG: NSR - CT/Ultrasound CT/Ultrasound Narrative: ct head no acute process - Progress/Reassessment Chief Complaint: Seizure Activity Progress:: Improved - Transfer of Care Expected Disposition: Admit Plan - Plan Plan: to admit to observation Departure Clinical Impression: Seizure - Departure Disposition: Still a patient Condition: Stable Referrals: Matt Rdoriguez MD [Primary Care Provider] -
[2018-05-21] MEDS ORDERED: chlordiazePOXIDE HCL 25 MG CAPSULE PO PRN (19:25)
[2018-05-21] MEDS ORDERED: ACETAMINOPHEN 500 MG TABLET PO PRN (19:30)
--- NOTE | 2018-05-21 20:00 | HP ---
Chief Complaint - Chief Complaint Date of Service: 05/21/18 Time of Service: 19:44 Chief Complaint: Px is incoherent and confused History of Present Illness: 78-year-old male with past medical history of chronic alcoholism, BPH, liver cirrhosis, hypertension, seizure disorder was brought to the ER at [facility] after being found face down confused, incoherent, and inebriated with alcohol. Patient has an extensive history of alcohol abuse and is normally restricted from consuming alcohol, however 2 days ago he was able to get access to alcohol that was locked up under lock and webber and consumed a significant amount enough to inebriate him. Patient has been hospitalized multiple times in the past for seizures secondary to alcohol use or withdrawal. When he was found he was found to have a laceration to his tongue likely secondary to an unwitnessed seizure. Patient's face was also covered in blood likely due to trauma, so after finding him his called an ambulance and had him taken to the ER. Medical History (Last Updated 05/21/18 @ 14:03 by Cassandra Hayes RN) Hypertension (Chronic) Onset Date: Unknown Erectile dysfunction (Chronic) Onset Date: Unknown Cirrhosis (Chronic) Onset Date: ~09/04/16 Alcohol abuse (Chronic) Seizure BPH (benign prostatic hyperplasia) Onset Date: Unknown Hypertension Incontinence Influenza vaccine refused Onset Date: ~03/15/18 Onychomycosis Onset Date: Unknown Surgical History: Surgical History (Last Updated 05/21/18 @ 18:59 by Leisa Palma RN) H/O adenoidectomy Onset Date: Unknown H/O esophagogastroduodenoscopy Onset Date: ~07/14/16 clotest negative History of colonoscopy Onset Date: ~2006 History of esophagogastroduodenoscopy (EGD) History of tonsillectomy Family History: Family History (Last Reviewed 05/21/18 @ 13:44 by Cassandra Hayes RN) Father Lung cancer Sister Heart problem Lung cancer Mother Breast cancer Hypertension Social History: Patient Lives/Resources With Spouse 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 Smoking Status Never smoker Have you smoked in the past 12 No months Abuse History No History of abuse Psych History No pertinent hx (Last Updated 03/16/18 @ 09:18 by Matt Rodriguez MD) No Social History Section defined Peds Patient Hx - Developmental: No Pertinent Hx Peds Patient Hx - Medical: No Pertinent Hx Peds Patient Hx - Cardiac/Respiratory: No Pertinent Hx Peds Patient Hx - Surgical: No Surgical History Patient History - Cancer: No Hx of Cancer Review Of Systems (GEN) - Review of Systems Generalized/Overall Review: Present: Weakness EENTM: Present: No Symptoms Reported Respiratory: Present: No Symptoms Reported Cardiac: Present: No Symptoms Reported Abdominal: Present: No Symptoms Reported Genitourinary: Present: No Symptoms Reported Musculoskeletal: Present: No Symptoms Reported Neurological: Present: Seizure, Weakness Skin: Present: No Symptoms Reported Endocrine: Present: No Symptoms Reported Immunizations: IMMUNIZATION HX Immunizations Up to Date Yes History of Influenza Vaccine Yes Hx Pneumococcal Vaccination Yes Allergies/Adverse Reactions: Allergies Allergy/AdvReac Type Severity Reaction Status Date / Time No Known Drug Allergies Allergy Verified 03/15/18 10:45 Home Medications: HOME MEDICATIONS Finasteride [Proscar] 5 mg PO DAILY 07/25/17 [Last Taken Unknown] ascorbic acid (vitamin C) 500 mg tablet 500 mg PO DAILY 03/15/18 [Last Taken Unknown] menthol 4 % topical gel 4 % TP DAILY ml 03/15/18 [Last Taken Unknown] multivitamin,qt-nzal-rojdfskh tablet 1 tab PO DAILY 03/15/18 [Last Taken Unknown] tamsulosin 0.4 mg capsule 0.4 mg PO HS #30 cap 03/15/18 [Last Taken Unknown] lisinopril 20 mg-hydrochlorothiazide 12.5 mg tablet 1 tab PO BID #60 tab 03/29/18 [Last Taken Unknown] Exam - Exam Vital Signs: Vital Signs - Last Taken Temp 37.4 C 05/21/18 19:04 Pulse 71 05/21/18 19:04 Resp 18 05/21/18 19:04 BP 102/53 05/21/18 19:04 Pulse Ox 92 L 05/21/18 19:04 Constitutional: Present: Alert, Well developed, No distress, Elderly, Morbidly obese ENT Exam: Present: normal ENT inspection, hearing grossly normal, other - Lacerated bloody tongue due to bite Eye Exam: bilateral eye: normal inspection, PERRL, EOMI Neck: Present: non-tender, full range of motion, supple, normal inspection, trachea midline, limited range of motion Back Exam: Present: normal inspection, no CVA tenderness, no vertebral tenderness Breasts: Present: Exam deferred Respiratory: Present: chest non-tender, lungs clear, normal breath sounds, no respiratory distress, no accessory muscle use Cardiovascular/Chest: Present: normal peripheral pulses, regular rate, rhythm, no chest tenderness, no edema, no gallop, no JVD, no murmur Peripheral Pulses: carotid (R): 3+, carotid (L): 3+, femoral (R): 3+, femoral (L): 3+ Abdomen: Present: Normal bowel sounds, soft, nontender, nondistended, no rebound tenderness, obese /Rectal: Present: Exam deferred Extremity: Present: normal range of motion, non-tender, normal inspection, no pedal edema, no calf tenderness, normal capillary refill Skin Exam: Present: normal color, warm/dry, no cyanosis Lymphatic: Present: no adenopathy Neurologic: Present: no motor/sensory deficits, alert, disoriented x 3 Appearance: Present: disheveled, impaired insight, impaired recent memory Eye contact: Present: cooperative, good eye contact, belligerent Thoughts: Present: other - Patient sensorium unable to be determined at this time he is incoherent disoriented and not making sense Diagnostic Studies: Abnormal Lab Results 05/21/18 05/21/18 05/21/18 Range/Units 14:08 14:08 14:08 WBC 14.8 H (4.0-10.5) K/mm3 MCH 32.6 H (27-31) pg Immature Gran % (Auto) 0.50 H (0.001-0.429) % Immature Gran # (Auto) 0.07 H (0.000-0.0310) K/mm3 Neutrophils % 88.4 H (42-75.0) % Lymphocytes % 4.2 L (20-51) % Neutrophils # 13.1 H (1.3-6.0) K/mm3 Lymphocytes # 0.63 L (1.5-3.5) k/mm3 Plasma Sodium 143 H (130-142) mmol/L Carbon Dioxide 32.8 H (24-32.6) mmol/L Est GFR (Non-Af Amer) 56 L D (60-130) mL/min Random Glucose 141 H (70-110) mg/dL Creatine Kinase 381 H (0-259) U/L Urine Blood (NEGATIVE) /ul Uric Acid Crystals (NONE) /hpf Amorphous Sediment (NONE-FEW) Urine Bacteria (NONE) Urine Mucus (NONE) 05/21/18 Range/Units 15:31 WBC (4.0-10.5) K/mm3 MCH (27-31) pg Immature Gran % (Auto) (0.001-0.429) % Immature Gran # (Auto) (0.000-0.0310) K/mm3 Neutrophils % (42-75.0) % Lymphocytes % (20-51) % Neutrophils # (1.3-6.0) K/mm3 Lymphocytes # (1.5-3.5) k/mm3 Plasma Sodium (130-142) mmol/L Carbon Dioxide (24-32.6) mmol/L Est GFR (Non-Af Amer) (60-130) mL/min Random Glucose (70-110) mg/dL Creatine Kinase (0-259) U/L Urine Blood 25 H (NEGATIVE) /ul Uric Acid Crystals Few - 1+ H (NONE) /hpf Amorphous Sediment Moderate - 2+ H (NONE-FEW) Urine Bacteria 2+ H (NONE) Urine Mucus Few - 1+ H (NONE) Laboratory Results WBC 14.8 K/mm3 (4.0-10.5) H 05/21/18 14:08 RBC 5.31 M/mm3 (4.7-6.0) 05/21/18 14:08 Hgb 17.3 gm/dL (13.5-18.0) 05/21/18 14:08 Hct 49.3 % (42.0-52.0) 05/21/18 14:08 MCV 92.8 fl (78-100) 05/21/18 14:08 MCH 32.6 pg (27-31) H 05/21/18 14:08 MCHC 35.1 g/dl (32-36) 05/21/18 14:08 RDW 12.9 % (11.5-14.0) 05/21/18 14:08 Plt Count 247 K/mm3 (150-450) 05/21/18 14:08 MPV 9.1 fl (8-11.3) 05/21/18 14:08 Immature Gran % (Auto) 0.50 % (0.001-0.429) H 05/21/18 14:08 Immature Gran # (Auto) 0.07 K/mm3 (0.000-0.0310) H 05/21/18 14:08 Neutrophils % 88.4 % (42-75.0) H 05/21/18 14:08 Lymphocytes % 4.2 % (20-51) L 05/21/18 14:08 Monocytes % 6.7 % (0.0-9) 05/21/18 14:08 Eosinophils % 0.0 % (0.0-3.0) 05/21/18 14:08 Basophils % 0.2 % (0.0-1.0) 05/21/18 14:08 Nucleated RBC % 0.0 k/mm3 (0-1) 05/21/18 14:08 Neutrophils # 13.1 K/mm3 (1.3-6.0) H 05/21/18 14:08 Lymphocytes # 0.63 k/mm3 (1.5-3.5) L 05/21/18 14:08 Monocytes # 1.0 k/mm3 (0.0-1.0) 05/21/18 14:08 Eosinophils # 0.0 k/mm3 (0.0-0.7) 05/21/18 14:08 Absolute Basophils 0.0 k/mm3 (0.0-0.1) 05/21/18 14:08 Sodium 142 mmol/L (132-142) 05/21/18 14:08 Plasma Sodium 143 mmol/L (130-142) H 05/21/18 14:08 Potassium 4.0 mmol/L (3.4-4.6) 05/21/18 14:08 Chloride 102 mmol/L (97-106) 05/21/18 14:08 Carbon Dioxide 32.8 mmol/L (24-32.6) H 05/21/18 14:08 Anion Gap 11.2 mmol/L (6.8-13.8) 05/21/18 14:08 BUN 15 mg/dL (6-23) 05/21/18 14:08 Creatinine 1.31 mg/dL (0.4-1.4) 05/21/18 14:08 Est GFR (Non-Af Amer) 56 mL/min (60-130) L D 05/21/18 14:08 BUN/Creatinine Ratio 11.5 (9.0-21.6) 05/21/18 14:08 Random Glucose 141 mg/dL (70-110) H 05/21/18 14:08 Calcium 10.3 mg/dL (7.9-10.9) 05/21/18 14:08 Calcium Adj for Albumin 10.1 mg/dL (8.4-10.2) 05/21/18 14:08 Total Bilirubin 0.9 mg/dL (0.0-1.1) 05/21/18 14:08 AST 29 U/L (0-48) 05/21/18 14:08 ALT 29 U/L (19-67) 05/21/18 14:08 Alkaline Phosphatase 51 U/L (50-170) 05/21/18 14:08 Creatine Kinase 381 U/L (0-259) H 05/21/18 14:08 Total Protein 7.7 gm/dL (6.2-8.2) 05/21/18 14:08 Albumin 3.9 gm/dl (3.4-5.0) 05/21/18 14:08 Urine Color Yellow 05/21/18 15:31 Urine Appearance Clear (CLEAR) 05/21/18 15:31 Urine pH 5.5 pH (5.0-7.0) 05/21/18 15:31 Ur Specific [place] >=1.030 SP.GR. (1.005-1.030) 05/21/18 15:31 Urine Protein Negative mg/dL (NEGATIVE) 05/21/18 15:31 Urine Glucose (UA) Negative mg/dL (NEGATIVE) 05/21/18 15:31 Urine Ketones Negative mg/dL (NEGATIVE) 05/21/18 15:31 Urine Blood 25 /ul (NEGATIVE) H 05/21/18 15:31 Urine Nitrate Negative (NEGATIVE) 05/21/18 15:31 Urine Bilirubin Negative mg/dl (NEGATIVE) 05/21/18 15:31 Urine Urobilinogen Normal EU/dl (NORMAL) 05/21/18 15:31 Ur Leukocyte Esterase Negative /ul (NEGATIVE) 05/21/18 15:31 Urine RBC None seen /hpf (0-5) 05/21/18 15:31 Urine WBC None seen /hpf (0-5) 05/21/18 15:31 Ur Epithelial Cells Trace /hpf (0-5) 05/21/18 15:31 Uric Acid Crystals Few - 1+ /hpf (NONE) H 05/21/18 15:31 Amorphous Sediment Moderate - 2+ (NONE-FEW) H 05/21/18 15:31 Urine Bacteria 2+ (NONE) H 05/21/18 15:31 Urine Mucus Few - 1+ (NONE) H 05/21/18 15:31 Urine Culture Comments Culture to follow 05/21/18 15:31 Urine Opiates Screen Negative (NEGATIVE) 05/21/18 15:31 Barbiturate Screen Negative (NEGATIVE) 05/21/18 15:31 Ur Phencyclidine Scrn Negative (NEGATIVE) 05/21/18 15:31 Urine Amphetamine Negative (NEGATIVE) 05/21/18 15:31 U Benzodiazepines Scrn Negative (NEGATIVE) 05/21/18 15:31 Urine Cocaine Screen Negative (NEGATIVE) 05/21/18 15:31 Urine Marijuana (THC) Negative (NEGATIVE) 05/21/18 15:31 Ethyl Alcohol Less than 3.0 mg/dL (0.0-10.0) 05/21/18 14:08 Assessment/Plan - Narrative Narrative: Patient was evaluated medical chart reviewed and given his signs and symptoms decision to admit for alcohol withdrawal and monitoring for recurrence of seizure was taken. Patient will be treated with IV hydration with a banana bag, and will receive thiamine folic acid, and benzodiazepine in case of seizure recurrence. While hospitalized he will continue receiving his routine medications and IV antibiotics for leukocytosis on labs. Repeat labs have been ordered for the morning for reevaluation. - Assessment/Plan (1) Alcohol abuse Problem: Acute (2) Alcohol withdrawal Problem: Acute (3) Seizure due to alcohol withdrawal Problem: Acute (4) Liver cirrhosis Problem: Acute (5) Tongue laceration Problem: Acute
[2018-05-21] MEDS: LISINOPRIL 20 MG TABLET PO SCH (20:39)
[2018-05-21] MEDS: HYDROCHLOROTHIAZIDE 12.5 MG CAPSULE PO SCH (20:39)
[2018-05-21] MEDS ORDERED: TAMSULOSIN HCL 0.4 MG CAP.SR.24H PO SCH (21:00)
[2018-05-21] MEDS: NORMAL SALINE 1,000 ML IV PRN (21:56)
[2018-05-21] MEDS: CIPROFLOXACIN IN 5 % DEXTROSE 400 MG/200 ML BAG IV SCH (21:57)
[2018-05-22 05:25] LABS: Hematocrit 41.5 % (42.0-52.0); Hemoglobin 14.1 gm/dL (13.5-18.0); Mean Cell Volume 92.8 fl (78-100); Mean Corpuscular Hemoglobin 31.5 pg (27-31); Mean Platelet Volume 9.3 fl (8-11.3); Neutrophil # 6.6 K/mm3 (1.3-6.0); Neutrophil % 66.8 % (42-75.0); Platelet Count 216 K/mm3 (150-450); Red Blood Count 4.47 M/mm3 (4.7-6.0); White Blood Count 9.8 K/mm3 (4.0-10.5)
[2018-05-22 05:38] LABS: Albumin * 2.9 gm/dl (3.4-5.0); Anion Gap 12.3 mmol/L (6.8-13.8); BUN/Creatinine Ratio 14.2 (9.0-21.6); Ca. Corrected For Albumin 9.4 mg/dL (8.4-10.2); Calcium * 8.8 mg/dL (7.9-10.9); Potassium 3.3 mmol/L (3.4-4.6)
[2018-05-22] MEDS ORDERED: TAMSULOSIN HCL 0.4 MG CAP.SR.24H PO ONE (08:13)
[2018-05-22] MEDS: NORMAL SALINE 1,000 ML IV PRN (08:53)
[2018-05-22] MEDS: CIPROFLOXACIN IN 5 % DEXTROSE 400 MG/200 ML BAG IV SCH (08:59)
[2018-05-22] MEDS ORDERED: FINASTERIDE 5 MG TABLET PO SCH (09:00)
[2018-05-22] MEDS ORDERED: ASCORBIC ACID 500 MG TABLET PO SCH (09:00)
[2018-05-22] MEDS ORDERED: MULTIVITAMINS 1 CAP CAPSULE PO SCH (09:00)
[2018-05-22] MEDS ORDERED: THIAMINE HCL 100 MG/ML VIAL IM SCH (09:00)
[2018-05-22] MEDS ORDERED: FAMOTIDINE 20 MG TABLET PO SCH (09:00)
[2018-05-22] MEDS ORDERED: FOLIC ACID 1 MG TABLET PO SCH (09:00)
[2018-05-22] MEDS: HYDROCHLOROTHIAZIDE 12.5 MG CAPSULE PO SCH (09:01)
[2018-05-22] MEDS: LISINOPRIL 20 MG TABLET PO SCH (09:03)
--- NOTE | 2018-05-22 11:24 | DS ---
(1) Alcohol abuse Problem: Chronic (2) Alcohol withdrawal Problem: Resolved Qualifiers: Complication of substance-induced condition: with delirium Qualified Code(s): F10.231 - Alcohol dependence with withdrawal delirium (3) Seizure due to alcohol withdrawal Problem: Acute (4) Liver cirrhosis Problem: Chronic (5) Tongue laceration Problem: Acute Description of Stay: 78-year-old male admitted for alcohol withdrawal with a possible unwitnessed seizure was evaluated at bedside and was found to be afebrile in no acute distress. Patient was brought to our facility due to his finding him face down on the floor in his bedroom with trauma to his face and a laceration to his tongue from a bite. Patient has an extensive history of alcohol abuse and has been hospitalized for the same thing multiple times here at our hospital. He was treated with IV hydration specifically a banana bag, folic acid, thiamine, and a benzodiazepine on a as needed basis in case of recurrence of seizure. Recurrence of the seizure did not occur and patient is more lucid although he does not remember what happened. He was counseled on the importance of abstinence from alcohol and proper fall precautions. Decision to discharge him home with instructions to follow-up with his PCP was taken. Procedures Performed: none Results and Findings: Pending Mircobiology Results 05/21/18 15:31 Urine,Catheterized Urine Culture - Preliminary No Growth Lab Pending Results 05/21/18 14:08: WBC 14.8 H, RBC 5.31, Hgb 17.3, Hct 49.3, MCV 92.8, MCH 32.6 H, MCHC 35.1, RDW 12.9, Plt Count 247, MPV 9.1, Immature Gran % (Auto) 0.50 H, Immature Gran # (Auto) 0.07 H, Neutrophils % 88.4 H, Lymphocytes % 4.2 L, Monocytes % 6.7, Eosinophils % 0.0, Basophils % 0.2, Nucleated RBC % 0.0, Neutrophils # 13.1 H, Lymphocytes # 0.63 L, Monocytes # 1.0, Eosinophils # 0.0, Absolute Basophils 0.0 05/21/18 14:08: Sodium 142, Plasma Sodium 143 H, Potassium 4.0, Chloride 102, Carbon Dioxide 32.8 H, Anion Gap 11.2, BUN 15, Creatinine 1.31, Est GFR (Non-Af Amer) 56 L D, BUN/Creatinine Ratio 11.5, Random Glucose 141 H, Calcium 10.3, Calcium Adj for Albumin 10.1, Total Bilirubin 0.9, AST 29, ALT 29, Alkaline Phosphatase 51, Total Protein 7.7, Albumin 3.9, Ethyl Alcohol Less than 3.0 05/21/18 14:08: Creatine Kinase 381 H 05/21/18 15:31: Urine Color Yellow, Urine Appearance Clear, Urine pH 5.5, Ur Specific [place] >=1.030, Urine Protein Negative, Urine Glucose (UA) Negative, Urine Ketones Negative, Urine Blood 25 H, Urine Nitrate Negative, Urine Bilirubin Negative, Urine Urobilinogen Normal, Ur Leukocyte Esterase Negative, Urine RBC None seen, Urine WBC None seen, Ur Epithelial Cells Trace, Uric Acid Crystals Few - 1+ H, Amorphous Sediment Moderate - 2+ H, Urine Bacteria 2+ H, Urine Mucus Few - 1+ H, Urine Culture Comments Culture to follow 05/21/18 15:31: Urine Opiates Screen Negative, Barbiturate Screen Negative, Ur Phencyclidine Scrn Negative, Urine Amphetamine Negative, U Benzodiazepines Scrn Negative, Urine Cocaine Screen Negative, Urine Marijuana (THC) Negative 05/22/18 05:05: WBC 9.8 D, RBC 4.47 L, Hgb 14.1, Hct 41.5 L, MCV 92.8, MCH 31.5 H, MCHC 34.0, RDW 13.0, Plt Count 216, MPV 9.3, Immature Gran % (Auto) 0.30, Immature Gran # (Auto) 0.03, Neutrophils % 66.8, Lymphocytes % 19.5 L, Monocytes % 12.5 H, Eosinophils % 0.4, Basophils % 0.5, Nucleated RBC % 0.0, Neutrophils # 6.6 H, Lymphocytes # 1.92, Monocytes # 1.2 H, Eosinophils # 0.0, Absolute Basophils 0.1 05/22/18 05:05: Sodium 143 H, Plasma Sodium 143 H, Potassium 3.3 L, Chloride 106, Carbon Dioxide 28.0, Anion Gap 12.3, BUN 16, Creatinine 1.13, Est GFR (Non- Af Amer) 67, BUN/Creatinine Ratio 14.2, Random Glucose 110, Calcium 8.8, Calcium Adj for Albumin 9.4, Total Bilirubin 1.0, AST 29, ALT 19, Alkaline Phosphatase 36 L, Total Protein 6.0 L, Albumin 2.9 L Discharge Location: Home Disposition: Home self-care Condition: Stable Discharge Activity: Activity as tolerated Discharge Diet: Consistent carbs Referrals: Matt Rodriguez MD [Primary Care Provider] - Complete Home Medications List: Complete Home Medication List: Finasteride [Proscar] 5 mg PO DAILY 07/25/17 ascorbic acid (vitamin C) 500 mg tablet 500 mg PO DAILY 03/15/18 menthol 4 % topical gel 4 % TP DAILY ml 03/15/18 multivitamin,km-lzje-posiafsc tablet 1 tab PO DAILY 03/15/18 tamsulosin 0.4 mg capsule 0.4 mg PO HS #30 cap 03/15/18 lisinopril 20 mg-hydrochlorothiazide 12.5 mg tablet 1 tab PO BID #60 tab 03/29/18
[2018-05-22 14:01] VITALS: BP 124/66
[2018-05-22] MEDS ORDERED: TAMSULOSIN HCL 0.4 MG CAP.SR.24H PO SCH (18:00)
== END 2018-05-22 14:01 | disposition home or self-care (01) ==
LOC: ER 13:35 → MS 13:35
PROVIDERS: ADMIT Family Medicine; ATTEND Family Medicine
DX: S01.512A Laceration without foreign body of oral cavity, initial encounter; G40.89 Other seizures; F10.231 Alcohol dependence with withdrawal delirium; F10.239 Alcohol dependence with withdrawal, unspecified; K74.60 Unspecified cirrhosis of liver; F10.10 Alcohol abuse, uncomplicated
CPT/HCPCS: 36415; 70450; 80053; 80307; 80320; 81001; 82550; 85025; 87086; 93005; 96361; 96365; 96366; 96367; 96372; 96375; 99285; G0378; G0481

== ENCOUNTER 2018-11-15 10:48 | Observation (INO) ==
[2018-11-15] MEDS ORDERED: NORMAL SALINE 1,000 ML IV ONE (11:00)
[2018-11-15 11:21] LABS: Hematocrit 46.4 % (42.0-52.0); Hemoglobin 15.9 gm/dL (13.5-18.0); Mean Cell Volume 95.7 fl (78-100); Mean Corpuscular Hemoglobin 32.8 pg (27-31); Mean Corpuscular Hgb Conc 34.3 g/dl (32-36); Mean Platelet Volume 8.9 fl (8-11.3); Neutrophil # 8.2 K/mm3 (1.3-6.0); Neutrophil % 81.5 % (42-75.0); Platelet Count 229 K/mm3 (150-450); Red Blood Count 4.85 M/mm3 (4.7-6.0); Red Cell Distribution Width 13.2 % (11.5-14.0); White Blood Count 10.1 K/mm3 (4.0-10.5)
[2018-11-15 11:32] LABS: INR 1.33 INR (0.92-1.08); Partial Thrombolplastin Time 28.9 Seconds (24-32)
[2018-11-15 11:36] LABS: Urine Bilirubin Negative (NEGATIVE); Urine Blood Negative /ul (NEGATIVE); Urine Ketone Negative (NEGATIVE); Urine Nitrite Negative (NEGATIVE); Urine Protein 30 mg/dL (NEGATIVE); Urine Specific Gravity >=1.030 SP.GR. (1.005-1.030); Urine Urobilinogen Normal (NORMAL)
[2018-11-15 11:45] LABS: Urine Color Yellow
[2018-11-15 11:46] LABS: Urine Appearance Clear (CLEAR); Urine Bacteria 1+; Urine RBC None Seen /hpf (0-5); Urine WBC 0-5 /hpf (0-5)
[2018-11-15 11:49] LABS: Cocaine Ur Negative (NEGATIVE); Urine Barbiturate Negative (NEGATIVE); Urine Benzodiazepines Negative (NEGATIVE); Urine Opiates Negative (NEGATIVE); Urine PCP Negative (NEGATIVE); Urine THC Negative (NEGATIVE)
--- NOTE | 2018-11-15 13:15 | ERNOTE ---
Neuro HPI ER Record Date of Service: 11/15/18 Presenting Symptoms: confusion, difficulty standing, other Time Seen by Provider: 11/15/18 10:55 Source: patient Exam Limitations: no limitations Immunizations: IMMUNIZATION HX Immunizations Up to Date Yes History of Influenza Vaccine Yes Hx Pneumococcal Vaccination Yes Allergies/Adverse Reactions: Allergies Allergy/AdvReac Type Severity Reaction Status Date / Time No Known Drug Allergies Allergy Verified 11/15/18 10:53 Home Medications: HOME MEDICATIONS ascorbic acid (vitamin C) 500 mg tablet 500 mg PO DAILY 03/15/18 [Last Taken Unknown] menthol 4 % topical gel 4 % TP DAILY ml 03/15/18 [Last Taken Unknown] multivitamin,nm-qcsm-rqkkpfzq tablet 1 tab PO DAILY 03/15/18 [Last Taken Unknown] tamsulosin 0.4 mg capsule 0.4 mg PO HS #30 cap 03/15/18 [Last Taken Unknown] lisinopril 20 mg-hydrochlorothiazide 12.5 mg tablet 1 tab PO BID #60 tab 03/29/18 [Last Taken Unknown] finasteride 5 mg tablet 5 mg PO DAILY #30 tab 06/20/18 [Last Taken Unknown] - History of Present Illness Narrative: patient present to ed with reported seizure, hx of same not on seizure meds, noticed blood in vargas and patient appeared post ictal Onset: cannot confirm onset - Character of Deficits New weakness: Present: general (diffuse) Additional Deficits: Present: decrease ability to stand, off balance Baseline Cognition: Present: alert, oriented x 4 Baseline Gait: Present: uses a cane/walker Associated Symptoms: Reports: trouble concentrating Prior Treament: Reports: recently seen Review of Systems - Review of Systems Constitutional: Present: See HPI, weakness, malaise EYE: Present: no symptoms reported ENT: Present: See HPI, other - apparent tongue laceration Respiratory: Present: no symptoms reported Cardiology: Present: no symptoms reported Gastrointestinal/Abdominal: Present: no symptoms reported Genitourinary: Present: no symptoms reported Musculoskeletal: Present: no symptoms reported Neurological: Present: See HPI, dizziness/light-headedness, seizure, weakness Endocrine: Present: no symptoms reported Hematologic/Lymphatic: Present: no symptoms reported Psych: Present: no symptoms reported All Other Systems: All systems neg except as marked Medical History (Updated 05/22/18 @ 11:24 by Sanjuana Curry MD) Hypertension (Chronic) Onset Date: Unknown Erectile dysfunction (Chronic) Onset Date: Unknown Cirrhosis (Chronic) Onset Date: ~09/04/16 Alcohol abuse (Chronic) BPH (benign prostatic hyperplasia) Onset Date: Unknown Hypertension Incontinence Influenza vaccine refused Onset Date: ~03/15/18 Onychomycosis Onset Date: Unknown Seizure Surgical History: Surgical History (Updated 05/22/18 @ 11:24 by Sanjuana Curry MD) H/O adenoidectomy Onset Date: Unknown H/O esophagogastroduodenoscopy Onset Date: ~07/14/16 clotest negative History of colonoscopy Onset Date: ~2006 History of esophagogastroduodenoscopy (EGD) History of tonsillectomy Family History: Family History (Last Reviewed 11/15/18 @ 10:53 by Sandra Sun RN) Father Lung cancer Sister Heart problem Lung cancer Mother Breast cancer Hypertension Social History: (Last Reviewed 11/15/18 @ 10:53 by Sandar Sun RN) Social History: Marital status: household members: spouse Highest education level completed: high school graduate Service: Yes branch: Know[employer] status: retired Tobacco: Smoking Status: Never smoker Alcohol: alcohol intake: current Substance Use: substance use type: does not use Dietary Habits: caffeine: Yes Physical Exam - Physical Exam General Appearance: Present: mild distress, lethargic Head Exam: Present: normal inspection, no evidence of injury Eye Exam: Normal inspection: bilateral, PERRL: bilateral, EOMI: bilateral Ears, Nose, Throat: Present: normal ENT inspection, normal pharynx Neck: Present: normal inspection, nontender Respiratory: Present: no respiratory distress, normal breath sounds, no accessory muscle use, chest nontender, lungs clear Cardiovascular/Chest: Present: regular rate, rhythm, no murmur, normal peripheral pulses Peripheral Pulses: N=norm/S=strong/W=weak/B=bound/A=absent: Carotid (R): Normal, Carotid (L): Normal, Radial (R): Normal, Radial (L): Normal, Femoral (R): Normal, Femoral (L): Normal, Dorsalis-pedis (R): Normal, Dorsalis-pedis (L): Normal Gastrointestinal/Abdominal: Present: normal bowel sounds, nontender, nondistended, soft, no organomegaly Back Exam: Present: normal inspection, normal range of motion, no CVA tenderness, no vertebral tenderness Extremity Exam: Present: normal inspection, non-tender, normal range of motion, no edema Neurological Exam: Present: alert, oriented, normal mood/affect, no motor/sensory deficits Skin Exam: Present: normal color, warm/dry Lymphatic Exam: Present: no adenopathy [place] Coma Scale - Assess Eye Opening: Spontaneous Motor: Obeys Commands Verbal: Confused - Total Coma Scale Total: 14 Progress - Date and Time Seen: Date and Time: 11/15/18 13:12 patient improved, discussed results of lab and ct with patient, to admit to observation.case discussed with dr mcghee - Results and Orders Patient's Lab Results:: I have reviewed the patient's lab results. - Vital Signs Patient's Vital Signs:: I have reviewed the patient's vital signs. Vital Signs: Vital Signs 11/15/18 10:49 11/15/18 10:55 11/15/18 11:52 Temperature 36.9 C Pulse Rate 100 100 92 Respiratory Rate 26 H 26 H Blood Pressure 161/95 H 143/82 O2 Sat by Pulse Oximetry 93 94 11/15/18 12:07 11/15/18 12:22 Temperature Pulse Rate 99 100 Respiratory Rate 25 H 21 H Blood Pressure 150/104 H 144/108 H O2 Sat by Pulse Oximetry 93 95 - EKG EKG #1 EKG: NSR - X-Ray X-Ray #1 X-Ray: chest Interpretation: Interp. by me - CT/Ultrasound CT/Ultrasound Narrative: ct head no acute process - Progress/Reassessment Chief Complaint: Altered Mental Status Progress:: Improved - Transfer of Care Expected Disposition: Admit Plan - Plan Plan: to admit to observation Departure Clinical Impression: Seizure - Departure Disposition: Still a patient Condition: Stable Referrals: Matt Rodriguez MD [Primary Care Provider] -
[2018-11-15] MEDS ORDERED: NICOTINE 21 MG PATC TD SCH (14:00)
[2018-11-15] MEDS ORDERED: ENOXAPARIN SODIUM 40 MG/0.4 ML SYRG SC SCH (14:00)
--- NOTE | 2018-11-15 14:29 | HP ---
Chief Complaint - Chief Complaint Date of Service: 11/15/18 Time of Service: 14:11 Chief Complaint: Seizure episode with biting of tongue, postictal state, chronic alcoholism, lower GI bleeding History of Present Illness: Mak Kaminski is a 78-year-old male who was brought to the emergency room following a generalized tonic-clonic seizure. He had blood coming from his mouth and on inspection had a bite to the tongue which occurred with his seizure. He has had previous seizures but has not been placed on antiseizure medication. He is a chronic alcoholic. He also has tramadol prescribed for pain which is contraindicated in seizures. He is admitted observation following his seizure still in a postictal state. He cannot take care of himself at this time and his is unable to care for him either. Vital signs are stable on admission. He is arousable by calling his name now but he is not conversational. Head CT is negative for bleed and the EKG shows normal sinus rhythm without acute injury. His INR is slightly elevated at 1.37. I suspect he has cirrhosis with portal hypertension that is led to lower GI bleeding. He also takes 81 mg aspirin daily. There is been no upper GI bleeding anybody's knowledge. Medical History (Updated 11/15/18 @ 13:15 by Saulo Wade[place]) Hypertension (Chronic) Onset Date: Unknown Erectile dysfunction (Chronic) Onset Date: Unknown Cirrhosis (Chronic) Onset Date: ~09/04/16 Alcohol abuse (Chronic) Seizure BPH (benign prostatic hyperplasia) Onset Date: Unknown Hypertension Incontinence Influenza vaccine refused Onset Date: ~03/15/18 Onychomycosis Onset Date: Unknown Surgical History: Surgical History (Updated 05/22/18 @ 11:24 by Sanjuana Curry MD) H/O adenoidectomy Onset Date: Unknown H/O esophagogastroduodenoscopy Onset Date: ~07/14/16 clotest negative History of colonoscopy Onset Date: ~2006 History of esophagogastroduodenoscopy (EGD) History of tonsillectomy Family History: Family History (Last Reviewed 11/15/18 @ 10:53 by Sandra Sun RN) Father Lung cancer Sister Heart problem Lung cancer Mother Breast cancer Hypertension Social History: (Last Reviewed 11/15/18 @ 10:53 by Sandra Sun RN) Social History: Marital status: household members: spouse Highest education level completed: high school graduate Service: Yes branch: [employer] status: retired Tobacco: Smoking Status: Never smoker Alcohol: alcohol intake: current Substance Use: substance use type: does not use Dietary Habits: caffeine: Yes Review Of Systems (GEN) - Review of Systems Generalized/Overall Review: Present: Weakness, Malaise EENTM: Present: Mouth Pain - From biting his tongue Respiratory: Present: Cough, Shortness of Breath - With exertion, Wheezing, Other - He is a current everyday smoker Cardiac: Present: No Symptoms Reported Abdominal: Present: No Symptoms Reported Genitourinary: Present: Hematuria - By history. He has prostatism and is being treated with tamsulosin and finasteride. Musculoskeletal: Present: No Symptoms Reported Neurological: Present: Seizure, Weakness Skin: Present: No Symptoms Reported Endocrine: Present: No Symptoms Reported Misc: All systems neg except as marked Immunizations: IMMUNIZATION HX Immunizations Up to Date Yes History of Influenza Vaccine Yes Hx Pneumococcal Vaccination Yes Allergies/Adverse Reactions: Allergies Allergy/AdvReac Type Severity Reaction Status Date / Time No Known Drug Allergies Allergy Verified 11/15/18 10:53 Home Medications: HOME MEDICATIONS ascorbic acid (vitamin C) 500 mg tablet 500 mg PO DAILY 03/15/18 [Last Taken Unknown] multivitamin,va-lelu-cniswqrl tablet 1 tab PO DAILY 03/15/18 [Last Taken Unkno wn] tamsulosin 0.4 mg capsule 0.4 mg PO HS #30 cap 03/15/18 [Last Taken Unknown] lisinopril 20 mg-hydrochlorothiazide 12.5 mg tablet 1 tab PO BID #60 tab 03/29/18 [Last Taken Unknown] finasteride 5 mg tablet 5 mg PO DAILY #30 tab 06/20/18 [Last Taken Unknown] Aspirin 81 mg PO DAILY 11/15/18 [Last Taken Unknown] traMADol HCL 11/15/18 [Last Taken Unknown] Exam - Exam Vital Signs: Vital Signs - Last Taken Temp 36.9 C 11/15/18 10:49 Pulse 89 11/15/18 13:22 Resp 20 11/15/18 13:22 BP 122/74 11/15/18 13:22 Pulse Ox 96 11/15/18 13:22 Constitutional: Present: Well developed, Well nourished, Obese - BMI 38.8 at 112.3 kg, Morbidly obese ENT Exam: Present: normal ENT inspection, hearing grossly normal, pharynx normal, TMs normal Eye Exam: right eye: normal inspection, PERRL, EOMI, abnormal EOM Neck: Present: non-tender, full range of motion, supple, normal inspection Back Exam: Present: normal inspection, no CVA tenderness, no vertebral tenderness Breasts: Present: Exam deferred Respiratory: Present: chest non-tender, rhonchi, wheezing, expiration (prolonged) Cardiovascular/Chest: Present: normal peripheral pulses, regular rate, rhythm, no chest tenderness, extra beats, edema Peripheral Pulses: carotid (R): 2+, carotid (L): 2+, radial (R): 2+, radial (L): 2+ Abdomen: Present: soft, nontender, nondistended, no rebound tenderness, no masses, obese, firm. Absent: no hepatospenomegaly - He has nodular cirrhosis in the liver is palpably enlarged /Rectal: Present: Exam deferred Extremity: Present: lower extremity edema Skin Exam: Present: normal color, warm/dry, no cyanosis Lymphatic: Present: no adenopathy Neurologic: Present: copy cutter II-XII nml as tested, no motor/sensory deficits, other - Patient is postictal and I am unable to do a neurological assessment in depth at this time. Reassess later. Appearance: Present: appropriate appearance Eye contact: Present: cooperative, avoids eye contact. Absent: good eye contact, normal speech Thoughts: Present: normal thought pattern, no apparent hallucination Diagnostic Studies: Abnormal Lab Results 11/15/18 11/15/18 11/15/18 Range/Units 11:05 11:05 11:21 MCH 32.8 H (27-31) pg Immature Gran # (Auto) 0.04 H (0.000-0.0310) K/mm3 Neutrophils % 81.5 H (42-75.0) % Lymphocytes % 8.5 L (20-51) % Neutrophils # 8.2 H (1.3-6.0) K/mm3 Lymphocytes # 0.86 L (1.5-3.5) k/mm3 PT 13.0 H (9.1-10.7) Seconds INR (Anticoag Therapy) 1.33 H (0.92-1.08) INR Urine Protein 30 H (NEGATIVE) mg/dL Urine Bacteria 1+ H (NONE) Laboratory Results WBC 10.1 K/mm3 (4.0-10.5) 11/15/18 11:05 RBC 4.85 M/mm3 (4.7-6.0) 11/15/18 11:05 Hgb 15.9 gm/dL (13.5-18.0) 11/15/18 11:05 Hct 46.4 % (42.0-52.0) 11/15/18 11:05 MCV 95.7 fl (78-100) 11/15/18 11:05 MCH 32.8 pg (27-31) H 11/15/18 11:05 MCHC 34.3 g/dl (32-36) 11/15/18 11:05 RDW 13.2 % (11.5-14.0) 11/15/18 11:05 Plt Count 229 K/mm3 (150-450) 11/15/18 11:05 MPV 8.9 fl (8-11.3) 11/15/18 11:05 Immature Gran % (Auto) 0.40 % (0.001-0.429) 11/15/18 11:05 Immature Gran # (Auto) 0.04 K/mm3 (0.000-0.0310) H 11/15/18 11:05 81.5 % (42-75.0) H 11/15/18 11:05 8.5 % (20-51) L 11/15/18 11:05 8.9 % (0.0-9) 11/15/18 11:05 0.3 % (0.0-3.0) 11/15/18 11:05 0.4 % (0.0-1.0) 11/15/18 11:05 Nucleated RBC % 0.0 k/mm3 (0-1) 11/15/18 11:05 8.2 K/mm3 (1.3-6.0) H 11/15/18 11:05 0.86 k/mm3 (1.5-3.5) L 11/15/18 11:05 0.9 k/mm3 (0.0-1.0) 11/15/18 11:05 0.0 k/mm3 (0.0-0.7) 11/15/18 11:05 Absolute Basophils 0.0 k/mm3 (0.0-0.1) 11/15/18 11:05 PT 13.0 Seconds (9.1-10.7) H 11/15/18 11:05 INR (Anticoag Therapy) 1.33 INR (0.92-1.08) H 11/15/18 11:05 PTT ([place]) 28.9 Seconds (24-32) 11/15/18 11:05 Less than 17.0 mcmol/L (11-35) 11/15/18 11:05 Yellow 11/15/18 11:21 Clear (CLEAR) 11/15/18 11:21 5.0 pH (5.0-7.0) 11/15/18 11:21 Ur Specific [place] >=1.030 SP.GR. (1.005-1.030) 11/15/18 11:21 30 mg/dL (NEGATIVE) H 11/15/18 11:21 Negative mg/dL (NEGATIVE) 11/15/18 11:21 Negative mg/dL (NEGATIVE) 11/15/18 11:21 Negative /ul (NEGATIVE) 11/15/18 11:21 Negative (NEGATIVE) 11/15/18 11:21 Negative mg/dl (NEGATIVE) 11/15/18 11:21 Prot Sulfosalicylic Acd 1+ mg/dL (0) 11/15/18 11:21 Normal EU/dl (NORMAL) 11/15/18 11:21 Ur Leukocyte Esterase Negative /ul (NEGATIVE) 11/15/18 11:21 None seen /hpf (0-5) 11/15/18 11:21 0-5 /hpf (0-5) 11/15/18 11:21 Ur Epithelial Cells 0-5 /hpf (0-5) 11/15/18 11:21 1+ (NONE) H 11/15/18 11:21 No culture indicated 11/15/18 11:21 Negative (NEGATIVE) 11/15/18 11:21 Negative (NEGATIVE) 11/15/18 11:21 Ur Phencyclidine Scrn Negative (NEGATIVE) 11/15/18 11:21 Urine Amphetamine Negative (NEGATIVE) 11/15/18 11:21 U Benzodiazepines Scrn Negative (NEGATIVE) 11/15/18 11:21 Negative (NEGATIVE) 11/15/18 11:21 Negative (NEGATIVE) 11/15/18 11:21 Ethyl Alcohol Less than 3.0 mg/dL (0.0-10.0) 11/15/18 11:05 Assessment/Plan - Narrative Narrative: 1. Seizure precautions 2. Continuous cardiac monitoring 3. Start on Keppra 500 twice daily 4. Discontinue tramadol 5. Up in chair when he is awake for all meals. 6. Anticipate discharge tomorrow. 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
[2018-11-15] MEDS: NORMAL SALINE 1,000 ML IV PRN ×2 (14:53→23:16)
[2018-11-15 19:42] LABS: Urine Bilirubin Negative (NEGATIVE); Urine Blood Negative /ul (NEGATIVE); Urine Ketone Negative (NEGATIVE); Urine Nitrite Negative (NEGATIVE); Urine Protein Negative (NEGATIVE); Urine Specific Gravity 1.015 SP.GR. (1.005-1.030); Urine Urobilinogen Normal (NORMAL)
[2018-11-15 19:51] LABS: Urine Appearance Clear (CLEAR); Urine Bacteria None Seen; Urine Color Yellow; Urine RBC None Seen /hpf (0-5); Urine WBC None Seen /hpf (0-5)
[2018-11-15] MEDS: HYDROCHLOROTHIAZIDE 12.5 MG CAPSULE PO SCH (20:40)
[2018-11-15] MEDS: LISINOPRIL 20 MG TABLET PO SCH (20:40)
[2018-11-15] MEDS: levETIRAcetam 500 MG TABLET PO SCH (20:40)
[2018-11-15] MEDS ORDERED: NON-FORMULARY 1 DOSE DOSE (Lisinopril/Hydrochlorothiazide [Lisinopril-Hctz 20-12.5 Mg Tab] PO SCH (21:00)
[2018-11-15] MEDS ORDERED: TAMSULOSIN HCL 0.4 MG CAP.SR.24H PO SCH (21:00)
[2018-11-16 05:46] LABS: Hematocrit 39.5 % (42.0-52.0); Hemoglobin 13.4 gm/dL (13.5-18.0); Mean Cell Volume 95.2 fl (78-100); Mean Corpuscular Hemoglobin 32.3 pg (27-31); Mean Corpuscular Hgb Conc 33.9 g/dl (32-36); Mean Platelet Volume 8.8 fl (8-11.3); Neutrophil # 4.4 K/mm3 (1.3-6.0); Neutrophil % 58.5 % (42-75.0); Platelet Count 184 K/mm3 (150-450); Red Blood Count 4.15 M/mm3 (4.7-6.0); Red Cell Distribution Width 13.2 % (11.5-14.0); White Blood Count 7.6 K/mm3 (4.0-10.5)
[2018-11-16 06:01] LABS: Albumin * 2.7 gm/dl (3.4-5.0); Anion Gap 12.7 mmol/L (6.8-13.8); BUN/Creatinine Ratio 11.3 (9.0-21.6); Bilirubin, Total 0.8 mg/dL (0.0-1.1); Ca. Corrected For Albumin 8.7 mg/dL (8.4-10.2); Potassium 3.7 mmol/L (3.4-4.6); Total Protein 5.7 gm/dL (6.2-8.2)
[2018-11-16] MEDS ORDERED: FINASTERIDE 5 MG TABLET PO SCH (09:00)
[2018-11-16] MEDS ORDERED: ASPIRIN 81 MG TAB.CHEW PO SCH (09:00)
[2018-11-16] MEDS ORDERED: ASCORBIC ACID 500 MG TABLET PO SCH (09:00)
[2018-11-16] MEDS ORDERED: MULTIVITAMIN/IRON/FOLIC ACID 1 TAB TABLET PO SCH (09:00)
[2018-11-16] MEDS: levETIRAcetam 500 MG TABLET PO SCH (10:15)
[2018-11-16] MEDS: LISINOPRIL 20 MG TABLET PO SCH (10:20)
[2018-11-16] MEDS: HYDROCHLOROTHIAZIDE 12.5 MG CAPSULE PO SCH (10:28)
--- NOTE | 2018-11-16 11:13 | DS ---
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 (2) Altered mental status Problem: Acute Qualifiers: Altered mental status type: delirium Qualified Code(s): R41.0 - Disorientation, unspecified (3) Generalized weakness Problem: Chronic (4) Postictal state Problem: Acute (5) Cirrhosis Problem: Chronic Qualifiers: Hepatic cirrhosis type: alcoholic cirrhosis Ascites presence: with ascites Qualified Code(s): K70.31 - Alcoholic cirrhosis of liver with ascites (6) Alcohol abuse Problem: Chronic (7) Open wound of tongue due to bite Problem: Acute Date of Discharge:: 11/16/18 Description of Stay: Mak Kaminski is a 78-year-old male who was brought to the hospital after having a seizure at home. His with whom I spoke this morning reports that he is having seizures once or twice per month. I started him on Keppra this morning. She also reports that he has incontinence of urine and increasing dementia. She is wanting to know if the medicine could be given for his bladder control. When I saw him last night he was still postictal and unable to communicate with me. This morning he is sitting up in a chair and answers questions appropriately and is conversant. He is in no distress and has no complaints of pain. He has had some rectal bleeding with passage of stools. 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 On exam last evening I noticed his abdomen seemed to be pretty tight. I reexamined him this morning and it is still tight and there is a positive succussion splash strongly suggesting he has ascites. 2 view abdomen has been ordered and a CT scan set up for outpatient purposes in about 2 weeks. I started him on Keppra and he has not had any more seizure-like activity. He will need a Keppra level done in about 2 weeks and that also is ordered. He has been taking tramadol for pain but since it is contraindicated in seizures patients it is discontinued. His disposition is improved. Prognosis is guarded. He is discharged to home Procedures Performed: none Results and Findings: Lab Pending Results 11/15/18 11:05: WBC 10.1, RBC 4.85, Hgb 15.9, Hct 46.4, MCV 95.7, MCH 32.8 H, MCHC 34.3, RDW 13.2, Plt Count 229, MPV 8.9, Immature Gran % (Auto) 0.40, Immature Gran # (Auto) 0.04 H, Neutrophils % 81.5 H, Lymphocytes % 8.5 L, Monocytes % 8.9, Eosinophils % 0.3, Basophils % 0.4, Nucleated RBC % 0.0, Neutrophils # 8.2 H, Lymphocytes # 0.86 L, Monocytes # 0.9, Eosinophils # 0.0, Absolute Basophils 0.0 11/15/18 11:05: PT 13.0 H, INR (Anticoag Therapy) 1.33 H, PTT (Peter) 28.9 11/15/18 11:05: Ethyl Alcohol Less than 3.0 11/15/18 11:05: Ammonia Less than 17.0 11/15/18 11:21: Urine Color Yellow, Urine Appearance Clear, Urine pH 5.0, Ur Specific [place] >=1.030, Urine Protein 30 H, Urine Glucose (UA) Negative, Urine Ketones Negative, Urine Blood Negative, Urine Nitrate Negative, Urine Bilirubin Negative, Prot Sulfosalicylic Acd 1+, Urine Urobilinogen Normal, Ur Leukocyte Esterase Negative, Urine RBC None seen, Urine WBC 0-5, Ur Epithelial Cells 0-5, Urine Bacteria 1+ H, Urine Culture Comments No culture indicated 11/15/18 11:21: Urine Opiates Screen Negative, Barbiturate Screen Negative, Ur Phencyclidine Scrn Negative, Urine Amphetamine Negative, U Benzodiazepines Scrn Negative, Urine Cocaine Screen Negative, Urine Marijuana (THC) Negative 11/15/18 19:04: Urine Color Yellow, Urine Appearance Clear, Urine pH 6.0, Ur Specific [place] 1.015, Urine Protein Negative, Urine Glucose (UA) Negative, Urine Ketones Negative, Urine Blood Negative, Urine Nitrate Negative, Urine Bilirubin Negative, Urine Urobilinogen Normal, Ur Leukocyte Esterase Negative, Urine RBC None seen, Urine WBC None seen, Ur Epithelial Cells Trace, Urine Bacteria None seen 11/16/18 05:45: WBC 7.6 D, RBC 4.15 L, Hgb 13.4 L, Hct 39.5 L, MCV 95.2, MCH 32.3 H, MCHC 33.9, RDW 13.2, Plt Count 184, MPV 8.8, Immature Gran % (Auto) 0.30, Immature Gran # (Auto) 0.02, Neutrophils % 58.5, Lymphocytes % 25.0, Monocytes % 11.4 H, Eosinophils % 4.0 H, Basophils % 0.8, Nucleated RBC % 0.0, Neutrophils # 4.4, Lymphocytes # 1.89, Monocytes # 0.9, Eosinophils # 0.3, Absolute Basophils 0.1 11/16/18 05:45: Sodium 142, Plasma Sodium 142, Potassium 3.7, Chloride 109 H, Carbon Dioxide 24.0, Anion Gap 12.7, BUN 12, Creatinine 1.06, Est GFR (Non-Af Amer) 72, BUN/Creatinine Ratio 11.3, Random Glucose 98, Calcium 8.0, Calcium Adj for Albumin 8.7, Total Bilirubin 0.8, AST 29, ALT 17 L, Alkaline Phosphatase 46 L, Total Protein 5.7 L, Albumin 2.7 L Discharge Location: Home Disposition: Home self-care Condition: Fair Face to Face Encounter completed per [facility] Guidelines: No Discharge Activity: Activity as tolerated Discharge Diet: General/regular food Referrals: Matt Rodriguez MD [Primary Care Provider] - Additional Patient Instructions (free text): -Please make TCM appointment unless [facility] discharge, or if following up with outside provider. Thank you! Janette @ [facility] [phone] or Makeda at [facility] [phone]. Please schedule to see Dr. Rodriguez in 2 weeks in his office. Complete Home Medications List: Complete Home Medication List: ascorbic acid (vitamin C) 500 mg tablet 500 mg PO DAILY 03/15/18 multivitamin,vp-pigc-hnndcyey tablet 1 tab PO DAILY 03/15/18 tamsulosin 0.4 mg capsule 0.4 mg PO HS #30 cap 03/15/18 lisinopril 20 mg-hydrochlorothiazide 12.5 mg tablet 1 tab PO BID #60 tab 03/29/18 finasteride 5 mg tablet 5 mg PO DAILY #30 tab 06/20/18 Aspirin 81 mg PO DAILY 11/15/18 Oxybutynin Chloride [Ditropan Xl] 10 mg PO DAILY #30 tab 11/16/18 levETIRAcetam [Keppra] 500 mg IV ONCE vial 11/16/18 levETIRAcetam [Keppra] 500 mg PO BID #60 tab 11/16/18 Amb Orders for Discharge: CT Abdomen/Pelvis W/C * Time Frame: 2 Weeks, Location: Radiology Levetiracetam (Keppra) Time Frame: 2 Weeks, Location: Laboratory
[2018-11-16 12:33] VITALS: BP 145/77
== END 2018-11-16 12:45 | disposition home or self-care (01) ==
LOC: ER 10:48 → MS 10:48
PROVIDERS: ADMIT Family Medicine; ATTEND Family Medicine
CPT/HCPCS: 36415; 70450; 71010; 71045; 74019; 74020; 80053; 80307; 80320; 81001; 82140; 85025; 85610; 85730; 93005; 96361; 96365; 96372; 97162; 99285; G0378; G0481

== ENCOUNTER 2018-12-30 12:47 | Observation (INO) ==
--- NOTE | 2018-12-30 13:16 | ERNOTE ---
Neuro HPI ER Record Presenting Symptoms: other - seizure Time Seen by Provider: 12/30/18 13:11 Source: EMS Exam Limitations: clinical condition Immunizations: IMMUNIZATION HX Immunizations Up to Date Yes History of Influenza Vaccine Yes Hx Pneumococcal Vaccination Yes Allergies/Adverse Reactions: Allergies Allergy/AdvReac Type Severity Reaction Status Date / Time No Known Drug Allergies Allergy Verified 12/30/18 12:56 Home Medications: HOME MEDICATIONS ascorbic acid (vitamin C) 500 mg tablet 500 mg PO DAILY 03/15/18 [Last Taken Unknown] multivitamin,aa-srym-hppqzxim tablet 1 tab PO DAILY 03/15/18 [Last Taken Unknown] tamsulosin 0.4 mg capsule 0.4 mg PO HS #30 cap 03/15/18 [Last Taken Unknown] finasteride 5 mg tablet 5 mg PO DAILY #30 tab 06/20/18 [Last Taken Unknown] levETIRAcetam [Keppra] 500 mg PO BID #60 tab 11/16/18 [Last Taken Unknown] Aspirin [Aspirin Chewable] 81 mg PO DAILY 12/30/18 [Last Taken Unknown] Lisinopril/Hydrochlorothiazide [Lisinopril-Hctz 20-12.5 mg Tab] 1 tab PO DAILY 12/30/18 [Last Taken Unknown] oxybutynin chloride ER 10 mg tablet,extended release 24 hr 10 mg PO DAILY #90 tab 12/30/18 [Last Taken Unknown] - History of Present Illness Narrative: Patient has a history of alcohol abuse and seizures. He was admitted to the hospital two months ago for seizures and started on keppra. EMS reports that they were called to his house three times for fall and he refused transport, when they came to the house for the fourth time patient had a generalized seizure, was postictal and confused afterwards, no further history is available Review of Systems - Narrative Narrative: unable to obtain Medical History (Updated 12/17/18 @ 08:43 by Matt Rodriguez MD) Hypertension (Chronic) Onset Date: Unknown Erectile dysfunction (Chronic) Onset Date: Unknown Cirrhosis (Chronic) Onset Date: ~09/04/16 Alcohol abuse (Chronic) BPH (benign prostatic hyperplasia) Onset Date: Unknown Hypertension Incontinence Influenza vaccine refused Onset Date: ~03/15/18 Onychomycosis Onset Date: Unknown Seizure Surgical History: Surgical History (Updated 05/22/18 @ 11:24 by Sanjuana Curry MD) H/O adenoidectomy Onset Date: Unknown H/O esophagogastroduodenoscopy Onset Date: ~07/14/16 clotest negative History of colonoscopy Onset Date: ~2006 History of esophagogastroduodenoscopy (EGD) History of tonsillectomy Family History: Family History (Last Reviewed 12/30/18 @ 17:42 by Aura Waldrop RN) Father Lung cancer Sister Heart problem Lung cancer Mother Breast cancer Hypertension Social History: (Last Reviewed 12/30/18 @ 17:42 by Aura Waldrop RN) Social History: Marital status: household members: spouse Highest education level completed: Associate degree: occupat Service: Yes branch: [employer] status: retired Tobacco: Smoking Status: Never smoker Alcohol: alcohol intake: current Alcohol type: beer, wine, hard liquor alcohol intake frequency: other Substance Use: substance use type: does not use Dietary Habits: caffeine: Yes high-fat food intake: other Physical Exam - Physical Exam General Appearance: Present: wd/wn, no apparent distress, lethargic, obese Ears, Nose, Throat: Present: other - tongue laceration, fresh blood in mouth Neck: Present: normal inspection Respiratory: Present: no respiratory distress, normal breath sounds, no accessory muscle use, lungs clear Cardiovascular/Chest: Present: regular rate, rhythm, no murmur Gastrointestinal/Abdominal: Present: normal bowel sounds, nontender, nondistended, soft Extremity Exam: Present: no edema Neurological Exam: Present: other - lethargic, arousable, moves all extemities Jet Coma Scale - Assess Eye Opening: To Voice Motor: Localizes to Pain Verbal: Confused - Total Coma Scale Total: 12 Progress - Results and Orders Patient's Lab Results:: I have reviewed the patient's lab results. - Vital Signs Patient's Vital Signs:: I have reviewed the patient's vital signs. Vital Signs: Vital Signs 12/30/18 12:48 12/30/18 12:54 Temperature 36.8 C Pulse Rate 107 H 105 H Respiratory Rate 30 H Blood Pressure 157/93 H O2 Sat by Pulse Oximetry 92 L - EKG EKG #1 EKG: NSR, nonspecific ST T wave changes, other - first degree AV block, no acute changes EKG read: Interp. by me - X-Ray X-Ray #1 X-Ray: chest - hypoventilatory changes, increased vascular markings Interpretation: Reviewed by me - Progress/Reassessment Chief Complaint: Seizure Activity Progress Note-Subjective: 12/30/18 14:17 patient had generalized tonic clonic seizure is available now, states that he has been taking his seizure medications as instructed but ran out. The last two days he has only had the evening dose (instead of bid), non yet today. The three prior falls were all seizures as well. NO ETOH in six months We'll get head CT, give IV keppra patient is obtunded, tongue bleeding, wheezing 12/30/18 14:34 wheezing much improved after breathing treatment 12/30/18 15:11 patient vomited once brownish, bloody fluids (swallowed blood from tongue lacerations?) will give one dose of protonix as patient has history of gastritis 12/30/18 16:[address] Sanders,okay to admit for observation Departure Clinical Impression: Seizures - Departure Disposition: Still a patient Condition: Stable
[2018-12-30 13:39] LABS: Hematocrit 46.4 % (42.0-52.0); Hemoglobin 15.9 gm/dL (13.5-18.0); Mean Cell Volume 94.3 fl (78-100); Mean Corpuscular Hemoglobin 32.3 pg (27-31); Mean Corpuscular Hgb Conc 34.3 g/dl (32-36); Mean Platelet Volume 9.1 fl (8-11.3); Neutrophil # 9.8 K/mm3 (1.3-6.0); Neutrophil % 85.9 % (42-75.0); Platelet Count 232 K/mm3 (150-450); Red Blood Count 4.92 M/mm3 (4.7-6.0); Red Cell Distribution Width 13.2 % (11.5-14.0); White Blood Count 11.4 K/mm3 (4.0-10.5)
[2018-12-30 13:47] LABS: AST 27 U/L (0-48); Albumin * 3.4 gm/dl (3.4-5.0); Alkaline Phosphatase * 49 U/L (50-170); Anion Gap 15.6 mmol/L (6.8-13.8); BUN/Creatinine Ratio 9.1 (9.0-21.6); Bilirubin, Total 0.6 mg/dL (0.0-1.1); Blood Urea Nitrogen 12 mg/dL (6-23); Ca. Corrected For Albumin 8.5 mg/dL (8.4-10.2); Calcium * 8.3 mg/dL (7.9-10.9); Carbon Dioxide 23.7 mmol/L (24-32.6); Chloride 106 mmol/L (97-106); Glucose * 148 mg/dL (70-110); Potassium 4.3 mmol/L (3.4-4.6); Sodium 141 mmol/L (132-142); Total Protein 6.9 gm/dL (6.2-8.2)
[2018-12-30 14:00] LABS: ALT 25 U/L (19-67)
[2018-12-30] MEDS ORDERED: LORazepam 2 MG/ML DISP.SYRIN IV ONE (14:09)
[2018-12-30] MEDS ORDERED: ALBUTEROL SULFATE 2.5 MG/0.5 ML VIAL.NEB IH ONE ×2 (14:14→14:30)
[2018-12-30 14:34] LABS: Urine Bilirubin Negative (NEGATIVE); Urine Ketone 5 mg/dL (NEGATIVE); Urine Nitrite Negative (NEGATIVE); Urine Protein 100 mg/dL (NEGATIVE); Urine Specific Gravity >=1.030 SP.GR. (1.005-1.030); Urine Urobilinogen Normal (NORMAL); Urine pH 5.5 pH (5.0-7.0)
[2018-12-30 14:40] LABS: Urine Amorphous Sediment Few - 1+ (NONE-FEW); Urine Appearance Clear (CLEAR); Urine Bacteria TRACE; Urine Blood 5 /ul (NEGATIVE); Urine Color Yellow; Urine RBC None Seen /hpf (0-5); Urine WBC None Seen /hpf (0-5)
[2018-12-30 14:46] LABS: Cocaine Ur Negative (NEGATIVE); Urine Barbiturate Negative (NEGATIVE); Urine Benzodiazepines Negative (NEGATIVE); Urine Opiates Negative (NEGATIVE); Urine PCP Negative (NEGATIVE); Urine THC Negative (NEGATIVE)
[2018-12-30] MEDS ORDERED: ONDANSETRON HCL/PF 2 MG/ML VIAL IV ONE (15:11)
[2018-12-30] MEDS ORDERED: PANTOPRAZOLE SODIUM 40 MG/100 ML PIGGYBACK IV ONE (15:15)
[2018-12-30] MEDS: NORMAL SALINE 1,000 ML IV PRN ×2 (15:16→19:35)
--- NOTE | 2018-12-30 20:31 | HP ---
Chief Complaint - Chief Complaint Date of Service: 12/30/18 Time of Service: 18:00 Chief Complaint: Multiple seizures History of Present Illness: Mak is a 78 yo male with known seizure disorder on Keppra. Per reports he has been running low on medication and trying to make the medication last by taking 1 pill a day for the last few days. He had a fall and multiple seizures at home. He was brought to the ER where he had additional seizures. He was given ativan and IV keppra and has reportedly not had seizures since. He has been very somnolent however. No other changes in health or medication. Medical History (Updated 12/30/18 @ 16:15 by Sapphire Christiansen MD) Hypertension (Chronic) Onset Date: Unknown Erectile dysfunction (Chronic) Onset Date: Unknown Cirrhosis (Chronic) Onset Date: ~09/04/16 Alcohol abuse (Chronic) BPH (benign prostatic hyperplasia) Onset Date: Unknown Hypertension Incontinence Influenza vaccine refused Onset Date: ~03/15/18 Onychomycosis Onset Date: Unknown Seizure Surgical History: Surgical History (Updated 05/22/18 @ 11:24 by Sanjuana Curry MD) H/O adenoidectomy Onset Date: Unknown H/O esophagogastroduodenoscopy Onset Date: ~07/14/16 clotest negative History of colonoscopy Onset Date: ~2006 History of esophagogastroduodenoscopy (EGD) History of tonsillectomy Family History: Family History (Last Reviewed 12/30/18 @ 17:42 by Aura Waldrop RN) Father Lung cancer Sister Heart problem Lung cancer Mother Breast cancer Hypertension Social History: (Last Reviewed 12/30/18 @ 17:42 by Aura Waldrop RN) Social History: Marital status: household members: spouse Highest education level completed: Associate degree: occupat Service: Yes branch: [employer] status: retired Tobacco: Smoking Status: Never smoker Alcohol: alcohol intake: current Alcohol type: beer, wine, hard liquor alcohol intake frequency: other Substance Use: substance use type: does not use Dietary Habits: caffeine: Yes high-fat food intake: other Review Of Systems (GEN) - Review of Systems Additional Comments: Patient is post-ictal and somnolent, unable to perform ROS. Immunizations: IMMUNIZATION HX Immunizations Up to Date Yes History of Influenza Vaccine Yes Hx Pneumococcal Vaccination Yes Allergies/Adverse Reactions: Allergies Allergy/AdvReac Type Severity Reaction Status Date / Time No Known Drug Allergies Allergy Verified 12/30/18 12:56 Home Medications: HOME MEDICATIONS ascorbic acid (vitamin C) 500 mg tablet 500 mg PO DAILY 03/15/18 [Last Taken Unknown] multivitamin,gd-laad-xhwstxcn tablet 1 tab PO DAILY 03/15/18 [Last Taken Unknown] tamsulosin 0.4 mg capsule 0.4 mg PO HS #30 cap 03/15/18 [Last Taken Unknown] finasteride 5 mg tablet 5 mg PO DAILY #30 tab 06/20/18 [Last Taken Unknown] levETIRAcetam [Keppra] 500 mg PO BID #60 tab 11/16/18 [Last Taken Unknown] Aspirin [Aspirin Chewable] 81 mg PO DAILY 12/30/18 [Last Taken Unknown] Lisinopril/Hydrochlorothiazide [Lisinopril-Hctz 20-12.5 mg Tab] 1 tab PO DAILY 12/30/18 [Last Taken Unknown] oxybutynin chloride ER 10 mg tablet,extended release 24 hr 10 mg PO DAILY #90 tab 12/30/18 [Last Taken Unknown] Exam - Exam Vital Signs: Vital Signs - Last Taken Temp 37.6 C 12/30/18 17:25 Pulse 102 H 12/30/18 17:25 Resp 20 12/30/18 17:25 BP 158/89 H 12/30/18 17:25 Pulse Ox 95 12/30/18 17:25 Constitutional: Present: Obtunded Respiratory: Present: lungs clear, normal breath sounds Cardiovascular/Chest: Present: regular rate, rhythm, no murmur Peripheral Pulses: radial (R): 2+, radial (L): 2+ Abdomen: Present: Normal bowel sounds Extremity: Present: lower extremity edema - 1+ Skin Exam: Present: normal color, warm/dry, no cyanosis Lymphatic: Present: no adenopathy Diagnostic Studies: Abnormal Lab Results 12/30/18 12/30/18 12/30/18 Range/Units 13:26 13:26 13:26 WBC 11.4 H (4.0-10.5) K/mm3 MCH 32.3 H (27-31) pg Immature Gran # (Auto) 0.04 H (0.000-0.0310) K/mm3 Neutrophils % 85.9 H (42-75.0) % Lymphocytes % 7.7 L (20-51) % Neutrophils # 9.8 H (1.3-6.0) K/mm3 Lymphocytes # 0.87 L (1.5-3.5) k/mm3 Carbon Dioxide 23.7 L (24-32.6) mmol/L Anion Gap 15.6 H (6.8-13.8) mmol/L Est GFR (Non-Af Amer) 56 L D (60-130) mL/min Random Glucose 148 H (70-110) mg/dL Lactic Acid, Venous 4.9 H* (0.4-2.0) mmol/L Alkaline Phosphatase 49 L (50-170) U/L Urine Protein (NEGATIVE) mg/dL Urine Blood (NEGATIVE) /ul Prot Sulfosalicylic Acd (0) mg/dL 12/30/18 12/30/18 Range/Units 14:26 16:05 WBC (4.0-10.5) K/mm3 MCH (27-31) pg Immature Gran # (Auto) (0.000-0.0310) K/mm3 Neutrophils % (42-75.0) % Lymphocytes % (20-51) % Neutrophils # (1.3-6.0) K/mm3 Lymphocytes # (1.5-3.5) k/mm3 Carbon Dioxide (24-32.6) mmol/L Anion Gap (6.8-13.8) mmol/L Est GFR (Non-Af Amer) (60-130) mL/min Random Glucose (70-110) mg/dL Lactic Acid, Venous 2.8 H* (0.4-2.0) mmol/L Alkaline Phosphatase (50-170) U/L Urine Protein 100 H (NEGATIVE) mg/dL Urine Blood 5 H (NEGATIVE) /ul Prot Sulfosalicylic Acd 2+ H (0) mg/dL Laboratory Results WBC 11.4 K/mm3 (4.0-10.5) H 12/30/18 13:26 RBC 4.92 M/mm3 (4.7-6.0) 12/30/18 13:26 Hgb 15.9 gm/dL (13.5-18.0) 12/30/18 13:26 Hct 46.4 % (42.0-52.0) 12/30/18 13:26 MCV 94.3 fl (78-100) 12/30/18 13:26 MCH 32.3 pg (27-31) H 12/30/18 13:26 MCHC 34.3 g/dl (32-36) 12/30/18 13:26 RDW 13.2 % (11.5-14.0) 12/30/18 13:26 Plt Count 232 K/mm3 (150-450) 12/30/18 13:26 MPV 9.1 fl (8-11.3) 12/30/18 13:26 Immature Gran % (Auto) 0.40 % (0.001-0.429) 12/30/18 13:26 Immature Gran # (Auto) 0.04 K/mm3 (0.000-0.0310) H 12/30/18 13:26 85.9 % (42-75.0) H 12/30/18 13:26 7.7 % (20-51) L 12/30/18 13:26 5.6 % (0.0-9) 12/30/18 13:26 0.0 % (0.0-3.0) 12/30/18 13:26 0.4 % (0.0-1.0) 12/30/18 13:26 Nucleated RBC % 0.0 k/mm3 (0-1) 12/30/18 13:26 9.8 K/mm3 (1.3-6.0) H 12/30/18 13:26 0.87 k/mm3 (1.5-3.5) L 12/30/18 13:26 0.6 k/mm3 (0.0-1.0) 12/30/18 13:26 0.0 k/mm3 (0.0-0.7) 12/30/18 13:26 Absolute Basophils 0.0 k/mm3 (0.0-0.1) 12/30/18 13:26 Sodium 141 mmol/L (132-142) 12/30/18 13:26 142 mmol/L (130-142) 12/30/18 13:26 Potassium 4.3 mmol/L (3.4-4.6) 12/30/18 13:26 Chloride 106 mmol/L (97-106) 12/30/18 13:26 Carbon Dioxide 23.7 mmol/L (24-32.6) L 12/30/18 13:26 15.6 mmol/L (6.8-13.8) H 12/30/18 13:26 BUN 12 mg/dL (6-23) 12/30/18 13:26 1.32 mg/dL (0.4-1.4) 12/30/18 13:26 Est GFR (Non-Af Amer) 56 mL/min (60-130) L D 12/30/18 13:26 9.1 (9.0-21.6) 12/30/18 13:26 148 mg/dL (70-110) H 12/30/18 13:26 2.8 mmol/L (0.4-2.0) H* 12/30/18 16:05 Calcium 8.3 mg/dL (7.9-10.9) 12/30/18 13:26 Calcium Adj for Albumin 8.5 mg/dL (8.4-10.2) 12/30/18 13:26 0.6 mg/dL (0.0-1.1) 12/30/18 13:26 AST 27 U/L (0-48) 12/30/18 13:26 ALT 25 U/L (19-67) 12/30/18 13:26 49 U/L (50-170) L 12/30/18 13:26 6.9 gm/dL (6.2-8.2) 12/30/18 13:26 3.4 gm/dl (3.4-5.0) 12/30/18 13:26 Yellow 12/30/18 14:26 Clear (CLEAR) 12/30/18 14:26 5.5 pH (5.0-7.0) 12/30/18 14:26 Ur Specific [place] >=1.030 SP.GR. (1.005-1.030) 12/30/18 14:26 100 mg/dL (NEGATIVE) H 12/30/18 14:26 Negative mg/dL (NEGATIVE) 12/30/18 14:26 5 mg/dL (NEGATIVE) 12/30/18 14:26 5 /ul (NEGATIVE) H 12/30/18 14:26 Negative (NEGATIVE) 12/30/18 14:26 Negative mg/dl (NEGATIVE) 12/30/18 14:26 Prot Sulfosalicylic Acd 2+ mg/dL (0) H 12/30/18 14:26 Normal EU/dl (NORMAL) 12/30/18 14:26 Ur Leukocyte Esterase Negative /ul (NEGATIVE) 12/30/18 14:26 None seen /hpf (0-5) 12/30/18 14:26 None seen /hpf (0-5) 12/30/18 14:26 Ur Epithelial Cells 0-5 /hpf (0-5) 12/30/18 14:26 Amorphous Sediment Few - 1+ (NONE-FEW) 12/30/18 14:26 Trace (NONE) 12/30/18 14:26 No culture indicated 12/30/18 14:26 Negative (NEGATIVE) 12/30/18 14:28 Negative (NEGATIVE) 12/30/18 14:28 Ur Phencyclidine Scrn Negative (NEGATIVE) 12/30/18 14:28 Urine Amphetamine Negative (NEGATIVE) 12/30/18 14:28 U Benzodiazepines Scrn Negative (NEGATIVE) 12/30/18 14:28 Negative (NEGATIVE) 12/30/18 14:28 Negative (NEGATIVE) 12/30/18 14:28 Ethyl Alcohol Less than 3.0 mg/dL (0.0-10.0) 12/30/18 13:26 Assessment/Plan - Narrative Narrative: Mak is a 78 yo male with seizure disorder. It appears he may have been subtherapeutic on his Keppra. He was given an IV loading dose in the ER and will be restarted on oral Keppra tomorrow. He will be on seizure precautions and have IV ativan prn for additional seizures. No other significant abnormalities on lab work or head CT noted. Will admit to observation and anticipate discharge tomorrow. - Assessment/Plan (1) Seizures Problem: Acute
[2018-12-31] MEDS: NORMAL SALINE 1,000 ML IV PRN (01:36)
--- NOTE | 2018-12-31 07:41 | PN ---
Subjective - Date and Time Seen Date: 12/31/18 Time: 07:30 Subjective Narrative: Pt. without complaint this am, but is oriented only to person. Nursing notes report no seizures overnight. Objective - Review of Systems Generalized/Overall Review: Reports: No Symptoms Reported EENTM: Reports: No Symptoms Reported Respiratory: Reports: No Symptoms Reported Cardiac: Reports: No Symptoms Reported Abdominal: Reports: No Symptoms Reported Genitourinary Symptoms: Reports: No Symptoms Reported Musculoskeletal Complaints: Reports: No Symptoms Reported Neurological: Denies: Seizure Skin: Reports: No Symptoms Reported Endocrine: Reports: No Symptoms Reported - Vitals Vitals: Last Vital Signs Temp 36.4 C 12/31/18 07:22 Pulse 56 L 12/31/18 07:22 Resp 20 12/31/18 07:22 BP 122/64 12/31/18 07:22 Pulse Ox 91 L 12/31/18 07:22 - Abnormal Lab Findings Abnormal Lab Findings: Abnormal Lab Results 12/30/18 12/30/18 12/30/18 Range/Units 13:26 13:26 13:26 WBC 11.4 H (4.0-10.5) K/mm3 MCH 32.3 H (27-31) pg Immature Gran # (Auto) 0.04 H (0.000-0.0310) K/mm3 Neutrophils % 85.9 H (42-75.0) % Lymphocytes % 7.7 L (20-51) % Neutrophils # 9.8 H (1.3-6.0) K/mm3 Lymphocytes # 0.87 L (1.5-3.5) k/mm3 Carbon Dioxide 23.7 L (24-32.6) mmol/L Anion Gap 15.6 H (6.8-13.8) mmol/L Est GFR (Non-Af Amer) 56 L D (60-130) mL/min Random Glucose 148 H (70-110) mg/dL Lactic Acid, Venous 4.9 H* (0.4-2.0) mmol/L Alkaline Phosphatase 49 L (50-170) U/L Urine Protein (NEGATIVE) mg/dL Urine Blood (NEGATIVE) /ul Prot Sulfosalicylic Acd (0) mg/dL 12/30/18 12/30/18 Range/Units 14:26 16:05 WBC (4.0-10.5) K/mm3 MCH (27-31) pg Immature Gran # (Auto) (0.000-0.0310) K/mm3 Neutrophils % (42-75.0) % Lymphocytes % (20-51) % Neutrophils # (1.3-6.0) K/mm3 Lymphocytes # (1.5-3.5) k/mm3 Carbon Dioxide (24-32.6) mmol/L Anion Gap (6.8-13.8) mmol/L Est GFR (Non-Af Amer) (60-130) mL/min Random Glucose (70-110) mg/dL Lactic Acid, Venous 2.8 H* (0.4-2.0) mmol/L Alkaline Phosphatase (50-170) U/L Urine Protein 100 H (NEGATIVE) mg/dL Urine Blood 5 H (NEGATIVE) /ul Prot Sulfosalicylic Acd 2+ H (0) mg/dL - Exam Constitutional: Present: Alert, Cooperative, Other - disheveled ENT Exam: Present: hearing grossly normal Neck: Present: supple Respiratory: Present: no respiratory distress, no accessory muscle use, rhonchi - aaron.. Absent: rales Cardiovascular/Chest: Present: regular rate, rhythm Abdomen: Present: Normal bowel sounds, soft, nontender, obese Extremity: Present: non-tender, no calf tenderness, lower extremity edema 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: no motor/sensory deficits, normal mood/affect Appearance: Present: disheveled Eye contact: Present: good eye contact Thoughts: Present: no apparent hallucination Assessment/Plan - Problems/Diagnosis (1) Lactic acidosis Problem: Acute Narrative: most likely from seizures. will continue fluids and repeat lab to show resolution. (2) Seizures Problem: Acute Narrative: due to non-compliance at home. Recent labs did show levels were low when supposedly on bid dosing so will increase dose to 750mg po bid to be sure not just a breakthrough seizure. might consider 1gm bid to hopefully cover better in case of him taking only once daily. It has already been emphazised the importance of taking his meds, will discuss further will his when she's here. he has been seizure free since being here. (3) Leukocytosis Problem: Acute Qualifiers: Leukocytosis type: unspecified Qualified Code(s): D72.829 - Elevated white blood cell count, unspecified Narrative: due to seizure most likely as he's not running fevers or showing signs of infectious etiology. (4) HTN (hypertension) Problem: Chronic Qualifiers: Hypertension type: essential hypertension Narrative: stable. (5) Discharge planning issues Problem: Acute Narrative: anticipate discharge home later today.
[2018-12-31] MEDS ORDERED: FINASTERIDE 5 MG TABLET PO SCH (09:00)
[2018-12-31] MEDS ORDERED: levETIRAcetam 500 MG TABLET PO SCH ×2 (09:00)
[2018-12-31] MEDS ORDERED: HYDROCHLOROTHIAZIDE 12.5 MG CAPSULE PO SCH (09:00)
[2018-12-31] MEDS ORDERED: LISINOPRIL 20 MG TABLET PO SCH (09:00)
[2018-12-31] MEDS ORDERED: OXYBUTYNIN CHLORIDE 5 MG TABLET PO SCH (09:00)
--- NOTE | 2018-12-31 09:03 | DS ---
(1) Lactic acidosis Problem: Acute (2) Seizures Problem: Acute (3) Leukocytosis Problem: Acute Qualifiers: Leukocytosis type: unspecified Qualified Code(s): D72.829 - Elevated white blood cell count, unspecified (4) HTN (hypertension) Problem: Chronic Qualifiers: Hypertension type: essential hypertension (5) Discharge planning issues Problem: Acute Date of Discharge:: 12/31/18 Description of Stay: Pt. admitted due to seizures, was given a 1gm IV dose of Keppra and remained seizure free during time in hospital. reports pt. had been taking only 1 tab daily for a couple days [employer] due to ran out of meds and didn't have a refill. He did not have any keppra the day of admission. Tests showed some lactic acidosis, most likely from the seizure activity, resolved on repeat labs, going from 4.9 to 1.0 with IVF. Pt. was at baseline at time of discharge. Due to recent keppra level check in clinic being low, will increase his dose to 750mg po bid and do a day supply to help with compliance. Plan d/w and she is agreeable and voices understanding. Procedures Performed: none Results and Findings: Lab Pending Results 12/30/18 13:26: WBC 11.4 H, RBC 4.92, Hgb 15.9, Hct 46.4, MCV 94.3, MCH 32.3 H, MCHC 34.3, RDW 13.2, Plt Count 232, MPV 9.1, Immature Gran % (Auto) 0.40, Immature Gran # (Auto) 0.04 H, Neutrophils % 85.9 H, Lymphocytes % 7.7 L, Monocytes % 5.6, Eosinophils % 0.0, Basophils % 0.4, Nucleated RBC % 0.0, Neutrophils # 9.8 H, Lymphocytes # 0.87 L, Monocytes # 0.6, Eosinophils # 0.0, Absolute Basophils 0.0 12/30/18 13:26: Sodium 141, Plasma Sodium 142, Potassium 4.3, Chloride 106, Carbon Dioxide 23.7 L, Anion Gap 15.6 H, BUN 12, Creatinine 1.32, Est GFR (Non- Af Amer) 56 L D, BUN/Creatinine Ratio 9.1, Random Glucose 148 H, Calcium 8.3, Calcium Adj for Albumin 8.5, Total Bilirubin 0.6, AST 27, ALT 25, Alkaline Phosphatase 49 L, Total Protein 6.9, Albumin 3.4, Ethyl Alcohol Less than 3.0 12/30/18 13:26: Lactic Acid, Venous 4.9 H* 12/30/18 14:26: Urine Color Yellow, Urine Appearance Clear, Urine pH 5.5, Ur Specific [place] >=1.030, Urine Protein 100 H, Urine Glucose (UA) Negative, Urine Ketones 5, Urine Blood 5 H, Urine Nitrate Negative, Urine Bilirubin Negative, Prot Sulfosalicylic Acd 2+ H, Urine Urobilinogen Normal, Ur Leukocyte Esterase Negative, Urine RBC None seen, Urine WBC None seen, Ur Epithelial Cells 0-5, Amorphous Sediment Few - 1+, Urine Bacteria Trace, Urine Culture Comments No culture indicated 12/30/18 14:28: Urine Opiates Screen Negative, Barbiturate Screen Negative, Ur Phencyclidine Scrn Negative, Urine Amphetamine Negative, U Benzodiazepines Scrn Negative, Urine Cocaine Screen Negative, Urine Marijuana (THC) Negative 12/30/18 16:05: Lactic Acid, Venous 2.8 H* 12/31/18 07:41: Lactic Acid, Venous 1.0 Discharge Location: Home Disposition: Home self-care Condition: Good Discharge Activity: Activity as tolerated Discharge Diet: General/regular food Referrals: Matt Rodriguez MD [Primary Care Provider] - One Week Prescriptions (Any new or edited meds): levETIRAcetam [Keppra] 750 mg PO BID #180 tab Complete Home Medications List: Complete Home Medication List: ascorbic acid (vitamin C) 500 mg tablet 500 mg PO DAILY 03/15/18 multivitamin,uo-lnnz-evuxcevf tablet 1 tab PO DAILY 03/15/18 tamsulosin 0.4 mg capsule 0.4 mg PO HS #30 cap 03/15/18 finasteride 5 mg tablet 5 mg PO DAILY #30 tab 06/20/18 Aspirin [Aspirin Chewable] 81 mg PO DAILY 12/30/18 Lisinopril/Hydrochlorothiazide [Lisinopril-Hctz 20-12.5 mg Tab] 1 tab PO DAILY 12/30/18 oxybutynin chloride ER 10 mg tablet,extended release 24 hr 10 mg PO DAILY #90 tab 12/30/18 levETIRAcetam [Keppra] 750 mg PO BID #180 tab 12/31/18
[2018-12-31 10:54] VITALS: BP 126/68
[2018-12-31] MEDS ORDERED: TAMSULOSIN HCL 0.4 MG CAP.SR.24H PO SCH (21:00)
== END 2018-12-31 11:30 | disposition home or self-care (01) ==
LOC: ER 12:47 → MS 12:47
PROVIDERS: ADMIT Family Medicine; ATTEND Family Medicine
DX: R56.9 Unspecified convulsions; D72.829 Elevated white blood cell count, unspecified; I10 Essential (primary) hypertension; E87.2 Acidosis
CPT/HCPCS: 36415; 70450; 71010; 71045; 80053; 80177; 80307; 80320; 81001; 83605; 85025; 93005; 94640; 94664; 96361; 96365; 96367; 96375; 99285; G0378; G0481; J2405

== ENCOUNTER 2019-12-26 13:56 | Inpatient (IN) ==
[2019-12-26] MEDS ORDERED: ONDANSETRON HCL/PF 2 MG/ML VIAL ONE (13:58)
[2019-12-26] MEDS ORDERED: ONDANSETRON HCL/PF 2 MG/ML VIAL IV ONE ×2 (14:00→14:10)
--- NOTE | 2019-12-26 14:22 | ERNOTE ---
Syncope ER HPI Stated Complaint: unresponsive, AMS Time Seen by Provider: 12/26/19 14:05 Source: family, EMS, RN notes reviewed Exam Limitations: clinical condition Immunizations: IMMUNIZATION HX Immunizations Up to Date Yes History of Influenza Vaccine Yes Hx Pneumococcal Vaccination Yes Allergies/Adverse Reactions: Allergies No Known Drug Allergies Allergy (Verified 12/26/19 14:04) Home Medications: HOME MEDICATIONS ascorbic acid (vitamin C) 500 mg tablet 500 mg PO DAILY 03/15/18 [Last Taken Unknown] multivitamin,jw-awvy-[id number] 1 tab PO DAILY 03/15/18 [Last Taken Unknown] Aspirin [Aspirin Chewable] 81 mg PO DAILY 12/30/18 [Last Taken Unknown] levETIRAcetam [Keppra] 750 mg PO BID #180 tab 12/31/18 [Last Taken Unknown] finasteride 5 mg tablet 5 mg PO DAILY #90 tab 06/23/19 [Last Taken Unknown] lisinopril 20 mg-hydrochlorothiazide 12.5 mg tablet 1 tab PO DAILY #90 tab 06/23/19 [Last Taken Unknown] oxybutynin chloride 10 mg tablet,extended release 24 hr 10 mg PO DAILY #90 tab 06/23/19 [Last Taken Unknown] tamsulosin 0.4 mg capsule 0.4 mg PO HS #90 cap 06/23/19 [Last Taken Unknown] - History of Present Illness Narrative: Patient is a 79-year-old white male with past medical history significant for s eizure disorder, alcohol abuse, cirrhosis of liver and previous CVA, per daughter began with altered mental status/confusion yesterday. Today, they heard a "thud" in the room which patient was in. When they arrived in the room patient was unconscious without any witnessed seizure behavior. Loss of consciousness was short-lived the patient was even more confused than he had been yesterday. It is unknown as to if he hit his head or suffered any injuries. Patient did have some blood around his mouth and was vomiting upon arrival. Further details unable to be obtained from the patient. He can express some of his needs and does follow commands briefly but then quickly forgets and acts confused again. I have taken care of the patient in the hospital previously and this is not an unusual presentation or condition for him. Compliance with medications and drinking is unknown at this time. His speech is somewhat slurred, but he does make coherent statements at times. I do not believe he suffered a stroke. Patient arrived at our ER via EMS. Blood sugars were tested and were of no concern he tested at 172 here in our ER. Further history by daughter: She states that he has not had any alcohol to drink for at least a year. He has been rather wheezy all summer long but no treatment of this. She said it actually been doing fairly well most of the summer, just became more confused yesterday and even worse today. When they found him in his room he did have blood around his mouth, no active seizing but definitely more confused and unable to speak coherently. Prior Episodes: Present: recent history Symptoms prior to episode: Present: other - AMS that started yesterday. Activity at time of episode: Present: standing Character of event: Present: became unresponsive, confused after event. Absent: seizure activity observed Location of Injury: Present: tongue Current Symptoms: Present: other - Remains altered Review of Systems - Narrative Narrative: Overall review of systems unable to be obtained at this time except as presented by his daughter. - Review of Systems Constitutional: Absent: fever, chills EYE: Absent: blurred vision, double vision ENT: Absent: nose congestion, sore throat Respiratory: Absent: shortness of breath, cough Cardiology: Absent: chest pain, palpitations Gastrointestinal/Abdominal: Present: vomiting. Absent: diarrhea Genitourinary: Absent: frequency, dysuria Neurological: Present: no symptoms reported Endocrine: Present: no symptoms reported Hematologic/Lymphatic: Present: no symptoms reported Psych: Present: no symptoms reported Medical History (Last Reviewed 12/26/19 @ 14:09 by Matt Rodriguez MD) Prostatism (Chronic) Hypertension (Chronic) Onset Date: Unknown Erectile dysfunction (Chronic) Onset Date: Unknown Cirrhosis (Chronic) Onset Date: ~09/04/16 Alcohol abuse (Chronic) BPH (benign prostatic hyperplasia) Onset Date: Unknown Hypertension Incontinence Influenza vaccine refused Onset Date: ~03/15/18 Onychomycosis Onset Date: Unknown Seizure Surgical History: Surgical History (Last Reviewed 12/26/19 @ 14:09 by Matt Rodriguez MD) H/O adenoidectomy Onset Date: Unknown H/O esophagogastroduodenoscopy Onset Date: ~07/14/16 clotest negative History of colonoscopy Onset Date: ~2006 History of esophagogastroduodenoscopy (EGD) History of tonsillectomy Family History: Family History (Last Reviewed 12/26/19 @ 14:09 by Matt Rodriguez MD) Father Lung cancer Sister Heart problem Lung cancer Mother Breast cancer Hypertension Social History: (Last Reviewed 12/26/19 @ 14:09 by Matt Rodriguez MD) Social History: adopted: No foster care: No Marital status: lives independently: No household members: spouse caregiver/support person: No Highest education level completed: Associate degree: occupat Service: Yes branch: [employer] status: retired Tobacco: Smoking Status: Never smoker Alcohol: alcohol intake: current Alcohol type: beer, wine, hard liquor Substance Use: substance use type: does not use Dietary Habits: caffeine: Yes high-fat food intake: other Physical Exam - Physical Exam General Appearance: Present: alert, mild distress, lethargic, other - Very confused with inability to tell me his name, date or where he was. He could tell us that he needed to pee Head Exam: Present: normal inspection, no evidence of injury Eye Exam: Normal inspection: bilateral, PERRL: bilateral - Pupils are 2 mm and equal bilaterally, EOMI: bilateral Ears, Nose, Throat: Present: other - Patient does have bite lesions on his tongue. No active bleeding. Neck: Present: supple Respiratory: Present: no respiratory distress, normal breath sounds, no accessory muscle use, chest nontender, expiration (prolonged), wheezing - Bilaterally Cardiovascular/Chest: Present: tachycardia, systolic murmur Gastrointestinal/Abdominal: Present: normal bowel sounds, nontender, nondistended, soft, no organomegaly Back Exam: Present: normal inspection Extremity Exam: Present: normal inspection, non-tender, normal range of motion, no edema, other - Patient at first would not move his left side but did start moving shortly after arrival. Neurological Exam: Present: alert, no motor/sensory deficits, facial droop - Mild left facial droop which was present previously, disoriented to person, disoriented to time, disoriented to place, disoriented to situation Skin Exam: Present: other - Patient is well tanned Progress - Results and Orders Patient's Lab Results:: I have reviewed the patient's lab results. Results and Orders: Laboratory Tests 12/26/19 14:30 WBC 12.6 H RBC 5.06 Hgb 15.9 Hct 48.2 MCV 95.3 MCH 31.4 H MCHC 33.0 RDW 13.8 Plt Count 249 MPV 9.0 Immature Gran % (Auto) 0.40 Immature Gran # (Auto) 0.05 H Neutrophils % 89.8 H Lymphocytes % 5.0 L Monocytes % 4.6 Eosinophils % 0.0 Basophils % 0.2 Nucleated RBC % 0.0 Neutrophils # 11.3 H Lymphocytes # 0.63 L Monocytes # 0.6 Eosinophils # 0.0 Absolute Basophils 0.0 Laboratory Tests 12/26/19 14:30 Sodium 140 Plasma Sodium 141 Potassium 3.9 Chloride 104 Carbon Dioxide 22.1 L Anion Gap 17.8 H BUN 14 Creatinine 1.49 H Est GFR (Non-Af Amer) 48 L BUN/Creatinine Ratio 9.4 Random Glucose 186 H Calcium 9.3 Calcium Adj for Albumin 9.2 Total Bilirubin 0.6 AST 29 ALT 23 Alkaline Phosphatase 52 Troponin I 0.029 Total Protein 7.5 Albumin 3.7 Ethyl Alcohol Less than 3.0 Laboratory Tests 12/26/19 14:37 Urine Color Yellow Urine Appearance Cloudy Urine pH 5.0 Ur Specific Taylor >=1.030 Urine Protein 100 H Urine Glucose (UA) Negative Urine Ketones 5 Urine Blood 250 H Urine Nitrate Negative Urine Bilirubin Negative Prot Sulfosalicylic Acd 3+ H Urine Urobilinogen Normal Ur Leukocyte Esterase Negative Urine RBC 25-50 H Urine WBC 0-5 Ur Epithelial Cells 5-10 H Amorphous Sediment Moderate - 2+ H Urine Bacteria 2+ H Hyaline Casts 0-5 H Urine Culture Comments No culture indicated Laboratory Tests 12/26/19 14:30 Ammonia Less than 17.0 Laboratory Tests 12/26/19 14:37 Urine Opiates Screen Negative Barbiturate Screen Negative Ur Phencyclidine Scrn Negative Urine Amphetamine Negative U Benzodiazepines Scrn Negative Urine Cocaine Screen Negative Urine Marijuana (THC) Negative Laboratory Tests 12/26/19 12/26/19 14:30 14:30 Lactic Acid, Venous 6.1 H* C-Reactive Prot, Quant 0.7 Laboratory Tests 12/26/19 14:00 SARS-CoV-2 (PCR) Not detected - Vital Signs Patient's Vital Signs:: I have reviewed the patient's vital signs. Vital Signs: Patient is tachycardic with elevated blood pressures, O2 sats lower than would be expected. ? aspiration - EKG EKG #1 EKG: supraventricular tachycardia, nonspecific ST T wave changes EKG read: Interp. by me EKG Comments: Unable to get complete EKG due to patient inability to hold still. Still acting very confused - X-Ray X-Ray #1 X-Ray: chest Interpretation: Reviewed by me X-ray Comments: IMPRESSION: NO ACUTE CARDIOPULMONARY ABNORMALITY IDENTIFIED. Electronically signed by Nilesh Zacarias D.O.. - Progress/Reassessment Chief Complaint: Altered Mental Status Progress:: Unchanged Progress Note-Subjective: 12/26/19 16:05 Patient began with a seizure, with tongue biting, tachypnea and inability to respond to verbal stimuli, but is maintaining airway. Patient placed on side with suctioning of pharynx and O2 applied. Patient given 2 mg of IV Ativan, followed by 500 mg of IV Keppra. Generalized seizure activity noted by nurse which lasts about 25 to 30 seconds. We will open up IV fluids, monitor O2 sats and give patient IV dexamethasone. Lactic acid came back greater than 6 so we will get blood cultures prior to starting the Rocephin and do 1L LR after banana bag is finished. 12/26/19 16:08 12/26/19 18:03 Patient sleeping comfortably since being given the ativan. Will admit and transfer to floor with frequent vital checks due to seizure. - Transfer of Care Expected Disposition: Admit Additional Notes: Patient was discussed with Dr. Centeno who was agreeable to admit patient to the hospital. Plan - Plan Plan: Patient with syncopal episode: Past medical history with questionable seizure disorder, previous stroke and alcohol abuse. Patient currently does not show deficit consistent with a stroke. He does have some blood around his mouth uncertain whether this is from stomach or from tongue biting. If he did have a seizure uncertain as to whether this is withdrawal. Patient is acting more confused than typical baseline. Again uncertain whether this is due to ammonia levels, alcohol, low keppra levels, infection or other etiology. After further discussion with his daughter and with labs coming back negative for this being related to alcohol, I do believe it is worth doing a CT of the head make sure there is no acute bleed or change. This still could be related to his seizure disorder or infectious etiology would be more likely but other labs still pending and CXR is negative. Given his wheezing, will consider dexamethasone and possibly an MDI, but wonder if patient can follow MDI instructions. Labs show concern for dehydration, so will continue fluids - SG was > 30. Will continue banana bag. If lactic acid is high will do LR bolus. There is also concern for possible prostatitis vs UTI given findings of UA. Will send for culture and start him on rocephin. for his wheezing we'll give him IV dexamethasone. Pt. does have some mild ST changes on EKG. Sx's had been going on for awhile prior to arrival here, with Trop I being 0.029, still probably worth rechecking Trop I 3hrs after first one done. Given seizure in the ER will plan on admitting to the hospital. Will check a rapid COVID. Critical care time for seizure control and stabilization: 30min. spent with patient and then with family explaining condition, findings and the need to admit patient to hospital. Patient is COVID negative Departure Clinical Impression: SARAH (acute kidney injury), Hyperglycemia, Seizures, Wheezing, Lactic acidosis, Dehydration AMS (altered mental status) Qualifiers: Altered mental status type: delirium Qualified Code(s): R41.0 - Disorientation, unspecified UTI (urinary tract infection) Qualifiers: Urinary tract infection type: acute cystitis Hematuria presence: with hematuria Qualified Code(s): N30.01 - Acute cystitis with hematuria - Departure Disposition: Short Term Hospital Inpatient Condition: Fair
[2019-12-26] MEDS ORDERED: MULTIVIT INFUSN,ADULT 4,VIT K 10 ML, THIAMINE HCL 100 MG in NORMAL SALINE 1,000 ML IV SCH (14:30)
[2019-12-26 14:45] LABS: Hematocrit 48.2 % (42.0-52.0); Hemoglobin 15.9 gm/dL (13.5-18.0); Mean Cell Volume 95.3 fl (78-100); Mean Corpuscular Hemoglobin 31.4 pg (27-31); Neutrophil # 11.3 K/mm3 (1.3-6.0); Neutrophil % 89.8 % (42-75.0); Platelet Count 249 K/mm3 (150-450); Red Blood Count 5.06 M/mm3 (4.7-6.0); Red Cell Distribution Width 13.8 % (11.5-14.0); White Blood Count 12.6 K/mm3 (4.0-10.5)
[2019-12-26 15:04] LABS: ALT 23 U/L (19-67); AST 29 U/L (0-48); Albumin * 3.7 gm/dl (3.4-5.0); Alkaline Phosphatase * 52 U/L (50-170); Anion Gap 17.8 mmol/L (6.8-13.8); BUN/Creatinine Ratio 9.4 (9.0-21.6); Bilirubin, Total 0.6 mg/dL (0.0-1.1); Blood Urea Nitrogen 14 mg/dL (6-23); Ca. Corrected For Albumin 9.2 mg/dL (8.4-10.2); Calcium * 9.3 mg/dL (7.9-10.9); Carbon Dioxide 22.1 mmol/L (24-32.6); Chloride 104 mmol/L (97-106); Glucose * 186 mg/dL (70-110); Potassium 3.9 mmol/L (3.4-4.6); Sodium 140 mmol/L (132-142); Total Protein 7.5 gm/dL (6.2-8.2)
[2019-12-26 15:09] LABS: Urine Bilirubin Negative (NEGATIVE); Urine Blood 250 /ul (NEGATIVE); Urine Ketone 5 mg/dL (NEGATIVE); Urine Nitrite Negative (NEGATIVE); Urine Protein 100 mg/dL (NEGATIVE); Urine Specific Gravity >=1.030 SP.GR. (1.005-1.030); Urine Urobilinogen Normal (NORMAL)
[2019-12-26 15:09] LABS: Troponin I 0.029 ng/mL (0.00-0.10)
[2019-12-26 15:27] LABS: Urine Appearance Cloudy (CLEAR); Urine Color Yellow; Urine WBC 0-5 /hpf (0-5)
[2019-12-26 15:28] LABS: Urine Amorphous Sediment Moderate - 2+ (NONE-FEW); Urine Bacteria 2+; Urine Hyaline Cast 0-5 /LPF; Urine RBC 25-50 /hpf (0-5)
[2019-12-26] MEDS ORDERED: cefTRIAXone SODIUM 1,000 MG/100 ML BAG IV ONE (15:32)
[2019-12-26] MEDS ORDERED: DEXAMETHASONE SODIUM PHOSP/PF 10 MG/ML VIAL IV ONE (15:33)
[2019-12-26] MEDS ORDERED: LORazepam 2 MG/ML DISP.SYRIN ONE (15:43)
[2019-12-26] MEDS ORDERED: LORazepam 2 MG/ML DISP.SYRIN IV ONE (15:45)
[2019-12-26 15:49] LABS: Cocaine Ur Negative (NEGATIVE); Urine Barbiturate Negative (NEGATIVE); Urine Benzodiazepines Negative (NEGATIVE); Urine Opiates Negative (NEGATIVE); Urine PCP Negative (NEGATIVE); Urine THC Negative (NEGATIVE)
[2019-12-26] MEDS ORDERED: RINGER'S SOLUTION,LACTATED 1,000 ML IV ONE (16:08)
[2019-12-26] MEDS ORDERED: HEPARIN SODIUM,PORCINE 5,000 UNITS/ML VIAL SC SCH (17:30)
--- NOTE | 2019-12-26 19:06 | HP ---
Chief Complaint - Chief Complaint Date of Service: 12/26/19 Time of Service: 17:00 Chief Complaint: Seizure episode, altered mental status History of Present Illness: Patient is a 79-year-old white male with past medical history significant for seizure disorder, alcohol abuse, cirrhosis of liver and previous CVA, per daughter began with altered mental status/confusion yesterday. Today, they heard a "thud" in the room which patient was in. When they arrived in the room patient was unconscious without any witnessed seizure behavior. Loss of consciousness was short-lived the patient was even more confused than he had been yesterday. It is unknown as to if he hit his head or suffered any injuries. Patient did have some blood around his mouth and was vomiting upon arrival. Further details unable to be obtained from the patient. He can express some of his needs and does follow commands briefly but then quickly forgets and acts confused again. I have taken care of the patient in the hospital previously and this is not an unusual presentation or condition for him. Compliance with medications and drinking is unknown at this time. His speech is somewhat slurred, but he does make coherent statements at times. I do not believe he suffered a stroke. Patient arrived at our ER via EMS. Blood sugars were tested and were of no concern he tested at 172 here in our ER. Further history by daughter: She states that he has not had any alcohol to drink for at least a year. He has been rather wheezy all summer long but no treatment of this. She said it actually been doing fairly well most of the summer, just became more confused yesterday and even worse today. When they found him in his room he did have blood around his mouth, no active seizing but definitely more confused and unable to speak coherently. At the time of my exam he is obtunded. Some is due to being postictal and some is due to receiving IV Ativan. He has not responsive to me verbally or tactilely. He has bilateral expiratory wheezes and prolonged expiratory phase. He will need to be admitted and reassessed tomorrow morning with new lab. Will allow him to wake up. The levetiracetam level is not going to be available probably till Sunday. Medical History (Last Reviewed 12/26/19 @ 14:09 by Matt Rodriguez MD) Prostatism (Chronic) Hypertension (Chronic) Onset Date: Unknown Erectile dysfunction (Chronic) Onset Date: Unknown Cirrhosis (Chronic) Onset Date: ~09/04/16 Alcohol abuse (Chronic) BPH (benign prostatic hyperplasia) Onset Date: Unknown Hypertension Incontinence Influenza vaccine refused Onset Date: ~03/15/18 Onychomycosis Onset Date: Unknown Seizure Surgical History: Surgical History (Last Reviewed 12/26/19 @ 14:09 by Matt Rodriguez MD) H/O adenoidectomy Onset Date: Unknown H/O esophagogastroduodenoscopy Onset Date: ~07/14/16 clotest negative History of colonoscopy Onset Date: ~2006 History of esophagogastroduodenoscopy (EGD) History of tonsillectomy Family History: Family History (Last Reviewed 12/26/19 @ 14:09 by Matt Rodriguez MD) Father Lung cancer Sister Heart problem Lung cancer Mother Breast cancer Hypertension Social History: (Last Reviewed 12/26/19 @ 14:09 by Matt Rodriguez MD) Social History: adopted: No foster care: No Marital status: lives independently: No household members: spouse caregiver/support person: No Highest education level completed: Associate degree: occupat Service: Yes branch: [employer] status: retired Tobacco: Smoking Status: Never smoker Alcohol: alcohol intake: current Alcohol type: beer, wine, hard liquor Substance Use: substance use type: does not use Dietary Habits: caffeine: Yes high-fat food intake: other Review Of Systems (GEN) - Review of Systems Generalized/Overall Review: Present: Weakness EENTM: Present: No Symptoms Reported, Mouth Pain Respiratory: Present: Wheezing Cardiac: Present: No Symptoms Reported Abdominal: Present: No Symptoms Reported Genitourinary: Present: No Symptoms Reported Musculoskeletal: Present: No Symptoms Reported Neurological: Present: Seizure Skin: Present: No Symptoms Reported Endocrine: Present: No Symptoms Reported Immunizations: IMMUNIZATION HX Immunizations Up to Date No History of Influenza Vaccine More Information Required Hx Pneumococcal Vaccination More Information Required Allergies/Adverse Reactions: Allergies Allergy/AdvReac Type Severity Reaction Status Date / Time No Known Drug Allergies Allergy Verified 12/26/19 14:04 Home Medications: HOME MEDICATIONS ascorbic acid (vitamin C) 500 mg tablet 500 mg PO DAILY 03/15/18 [Last Taken Unknown] multivitamin,bs-xcsu-cqtzixon 1 tab PO DAILY 03/15/18 [Last Taken Unknown] Aspirin [Aspirin Chewable] 81 mg PO DAILY 12/30/18 [Last Taken Unknown] levETIRAcetam [Keppra] 750 mg PO BID #180 tab 12/31/18 [Last Taken Unknown] finasteride 5 mg tablet 5 mg PO DAILY #90 tab 06/23/19 [Last Taken Unknown] lisinopril 20 mg-hydrochlorothiazide 12.5 mg tablet 1 tab PO DAILY #90 tab 06/23/19 [Last Taken Unknown] oxybutynin chloride 10 mg tablet,extended release 24 hr 10 mg PO DAILY #90 tab 06/23/19 [Last Taken Unknown] tamsulosin 0.4 mg capsule 0.4 mg PO HS #90 cap 06/23/19 [Last Taken Unknown] Exam - Exam Vital Signs: Vital Signs - Last Taken Temp 35.5 C L 12/26/19 13:56 Pulse 107 H 12/26/19 17:41 Resp 29 H 12/26/19 17:41 BP 190/99 H 12/26/19 17:41 Pulse Ox 97 12/26/19 17:41 Constitutional: Present: Alert, Oriented x3, Cooperative, Well developed, Well nourished, No distress ENT Exam: Present: normal ENT inspection, hearing grossly normal, pharynx normal, TMs normal Eye Exam: bilateral eye: abnormal EOM - divergent gaze/scanning, abnormal pupil - 1 mm anisicoria Neck: Present: non-tender, full range of motion, supple, normal inspection Back Exam: Present: normal inspection, no CVA tenderness, no vertebral tenderness Breasts: Present: Exam deferred Respiratory: Present: wheezing, expiration (prolonged) Cardiovascular/Chest: Present: normal peripheral pulses, regular rate, rhythm, no chest tenderness, no edema, no gallop, no JVD, no murmur, no rub, other - Blood pressure is elevated at 181/93 Peripheral Pulses: carotid (R): 2+, carotid (L): 2+, radial (R): 2+, radial (L): 2+ Abdomen: Present: Normal bowel sounds, soft, nontender, nondistended /Rectal: Present: Exam deferred Extremity: Present: normal capillary refill Skin Exam: Present: normal color, warm/dry, no cyanosis Lymphatic: Present: no adenopathy Neurologic: Present: other - Obtunded mentation, not arousable with verbal or tactile stimuli Appearance: Present: appropriate appearance Eye contact: Present: other - Unable to cooperate Thoughts: Present: other - Unable to assess at this time Diagnostic Studies: Abnormal Lab Results 12/26/19 12/26/19 12/26/19 Range/Units 14:30 14:30 14:30 WBC 12.6 H (4.0-10.5) K/mm3 MCH 31.4 H (27-31) pg Immature Gran # (Auto) 0.05 H (0.000-0.0310) K/mm3 Neutrophils % 89.8 H (42-75.0) % Lymphocytes % 5.0 L (20-51) % Neutrophils # 11.3 H (1.3-6.0) K/mm3 Lymphocytes # 0.63 L (1.5-3.5) k/mm3 Carbon Dioxide 22.1 L (24-32.6) mmol/L Anion Gap 17.8 H (6.8-13.8) mmol/L Creatinine 1.49 H (0.4-1.4) mg/dL Est GFR (Non-Af Amer) 48 L (60-130) mL/min Random Glucose 186 H (70-110) mg/dL Lactic Acid, Venous 6.1 H* (0.4-2.0) mmol/L Urine Protein (NEGATIVE) mg/dL Urine Blood (NEGATIVE) /ul Prot Sulfosalicylic Acd (0) mg/dL Urine RBC (0-5) /hpf Ur Epithelial Cells (0-5) /hpf Amorphous Sediment (NONE-FEW) Urine Bacteria (NONE) Hyaline Casts (NONE) /LPF 12/26/19 12/26/19 Range/Units 14:37 18:22 WBC (4.0-10.5) K/mm3 MCH (27-31) pg Immature Gran # (Auto) (0.000-0.0310) K/mm3 Neutrophils % (42-75.0) % Lymphocytes % (20-51) % Neutrophils # (1.3-6.0) K/mm3 Lymphocytes # (1.5-3.5) k/mm3 Carbon Dioxide (24-32.6) mmol/L Anion Gap (6.8-13.8) mmol/L Creatinine (0.4-1.4) mg/dL Est GFR (Non-Af Amer) (60-130) mL/min Random Glucose (70-110) mg/dL Lactic Acid, Venous 3.9 H* (0.4-2.0) mmol/L Urine Protein 100 H (NEGATIVE) mg/dL Urine Blood 250 H (NEGATIVE) /ul Prot Sulfosalicylic Acd 3+ H (0) mg/dL Urine RBC 25-50 H (0-5) /hpf Ur Epithelial Cells 5-10 H (0-5) /hpf Amorphous Sediment Moderate - 2+ H (NONE-FEW) Urine Bacteria 2+ H (NONE) Hyaline Casts 0-5 H (NONE) /LPF Laboratory Results WBC 12.6 K/mm3 (4.0-10.5) H 12/26/19 14:30 RBC 5.06 M/mm3 (4.7-6.0) 12/26/19 14:30 Hgb 15.9 gm/dL (13.5-18.0) 12/26/19 14:30 Hct 48.2 % (42.0-52.0) 12/26/19 14:30 MCV 95.3 fl (78-100) 12/26/19 14:30 MCH 31.4 pg (27-31) H 12/26/19 14:30 MCHC 33.0 g/dl (32-36) 12/26/19 14:30 RDW 13.8 % (11.5-14.0) 12/26/19 14:30 Plt Count 249 K/mm3 (150-450) 12/26/19 14:30 MPV 9.0 fl (8-11.3) 12/26/19 14:30 Immature Gran % (Auto) 0.40 % (0.001-0.429) 12/26/19 14:30 Immature Gran # (Auto) 0.05 K/mm3 (0.000-0.0310) H 12/26/19 14:30 Neutrophils % 89.8 % (42-75.0) H 12/26/19 14:30 Lymphocytes % 5.0 % (20-51) L 12/26/19 14:30 Monocytes % 4.6 % (0.0-9) 12/26/19 14:30 Eosinophils % 0.0 % (0.0-3.0) 12/26/19 14:30 Basophils % 0.2 % (0.0-1.0) 12/26/19 14:30 Nucleated RBC % 0.0 k/mm3 (0-1) 12/26/19 14:30 Neutrophils # 11.3 K/mm3 (1.3-6.0) H 12/26/19 14:30 Lymphocytes # 0.63 k/mm3 (1.5-3.5) L 12/26/19 14:30 Monocytes # 0.6 k/mm3 (0.0-1.0) 12/26/19 14:30 Eosinophils # 0.0 k/mm3 (0.0-0.7) 12/26/19 14:30 Absolute Basophils 0.0 k/mm3 (0.0-0.1) 12/26/19 14:30 Sodium 140 mmol/L (132-142) 12/26/19 14:30 Plasma Sodium 141 mmol/L (130-142) 12/26/19 14:30 Potassium 3.9 mmol/L (3.4-4.6) 12/26/19 14:30 Chloride 104 mmol/L (97-106) 12/26/19 14:30 Carbon Dioxide 22.1 mmol/L (24-32.6) L 12/26/19 14:30 Anion Gap 17.8 mmol/L (6.8-13.8) H 12/26/19 14:30 BUN 14 mg/dL (6-23) 12/26/19 14:30 Creatinine 1.49 mg/dL (0.4-1.4) H 12/26/19 14:30 Est GFR (Non-Af Amer) 48 mL/min (60-130) L 12/26/19 14:30 BUN/Creatinine Ratio 9.4 (9.0-21.6) 12/26/19 14:30 Random Glucose 186 mg/dL (70-110) H 12/26/19 14:30 Lactic Acid, Venous 3.9 mmol/L (0.4-2.0) H* 12/26/19 18:22 Calcium 9.3 mg/dL (7.9-10.9) 12/26/19 14:30 Calcium Adj for Albumin 9.2 mg/dL (8.4-10.2) 12/26/19 14:30 Total Bilirubin 0.6 mg/dL (0.0-1.1) 12/26/19 14:30 AST 29 U/L (0-48) 12/26/19 14:30 ALT 23 U/L (19-67) 12/26/19 14:30 Alkaline Phosphatase 52 U/L (50-170) 12/26/19 14:30 Ammonia Less than 17.0 mcmol/L (11-35) 12/26/19 14:30 Troponin I 0.029 ng/mL (0.00-0.10) 12/26/19 14:30 C-Reactive Prot, Quant 0.7 mg/dL (0.0-0.9) 12/26/19 14:30 Total Protein 7.5 gm/dL (6.2-8.2) 12/26/19 14: Albumin 3.7 gm/dl (3.4-5.0) 12/26/19 14:30 Urine Color Yellow 12/26/19 14:37 Urine Appearance Cloudy (CLEAR) 12/26/19 14:37 Urine pH 5.0 pH (5.0-7.0) 12/26/19 14:37 Ur Specific Baker >=1.030 SP.GR. (1.005-1.030) 12/26/19 14:37 Urine Protein 100 mg/dL (NEGATIVE) H 12/26/19 14:37 Urine Glucose (UA) Negative mg/dL (NEGATIVE) 12/26/19 14:37 Urine Ketones 5 mg/dL (NEGATIVE) 12/26/19 14:37 Urine Blood 250 /ul (NEGATIVE) H 12/26/19 14:37 Urine Nitrate Negative (NEGATIVE) 12/26/19 14:37 Urine Bilirubin Negative mg/dl (NEGATIVE) 12/26/19 14:37 Prot Sulfosalicylic Acd 3+ mg/dL (0) H 12/26/19 14:37 Urine Urobilinogen Normal EU/dl (NORMAL) 12/26/19 14:37 Ur Leukocyte Esterase Negative /ul (NEGATIVE) 12/26/19 14:37 Urine RBC 25-50 /hpf (0-5) H 12/26/19 14:37 Urine WBC 0-5 /hpf (0-5) 12/26/19 14:37 Ur Epithelial Cells 5-10 /hpf (0-5) H 12/26/19 14:37 Amorphous Sediment Moderate - 2+ (NONE-FEW) H 12/26/19 14:37 Urine Bacteria 2+ (NONE) H 12/26/19 14:37 Hyaline Casts 0-5 /LPF (NONE) H 12/26/19 14:37 Urine Culture Comments No culture indicated 12/26/19 14:37 Urine Opiates Screen Negative (NEGATIVE) 12/26/19 14:37 Barbiturate Screen Negative (NEGATIVE) 12/26/19 14:37 Ur Phencyclidine Scrn Negative (NEGATIVE) 12/26/19 14:37 Urine Amphetamine Negative (NEGATIVE) 12/26/19 14:37 U Benzodiazepines Scrn Negative (NEGATIVE) 12/26/19 14:37 Urine Cocaine Screen Negative (NEGATIVE) 12/26/19 14:37 Urine Marijuana (THC) Negative (NEGATIVE) 12/26/19 14:37 Ethyl Alcohol Less than 3.0 mg/dL (0.0-10.0) 12/26/19 14:30 SARS-CoV-2 (PCR) Not detected (NotDetected) 12/26/19 14:00 Assessment/Plan - Narrative Narrative: 1. Give time for the lorazepam to metabolize away and then reassess mental status 2. Continue on Keppra when he is able to take oral medicines 3. Enoxaparin 40 mg daily. DC heparin 4. Repeat lab tomorrow morning 5. Vital signs with neuro checks every 4 hours 6. VTE prophylaxis orders placed - Assessment/Plan (1) Seizure Problem: Acute (2) Dementia Problem: Chronic Qualifiers: Dementia type: associated with alcoholism Dementia behavioral disturbance: without behavioral disturbance Qualified Code(s): F10.27 - Alcohol dependence with alcohol-induced persisting dementia (3) Weakness Problem: Chronic (4) Altered mental status Problem: Acute Qualifiers: Altered mental status type: stupor Qualified Code(s): R40.1 - Stupor (5) Acute kidney injury Problem: Acute (6) Tongue laceration Problem: Acute Qualifiers: Encounter type: subsequent encounter Qualified Code(s): S01.512D - Laceration without foreign body of oral cavity, subsequent encounter (7) Lactic acidosis Problem: Acute (8) Cirrhosis Problem: Chronic Qualifiers: Hepatic cirrhosis type: alcoholic cirrhosis Ascites presence: without ascites Qualified Code(s): K70.30 - Alcoholic cirrhosis of liver without ascites
[2019-12-26] MEDS ORDERED: NORMAL SALINE 1,000 ML IV ONE (19:27)
[2019-12-26] MEDS ORDERED: LORazepam 2 MG/ML DISP.SYRIN IV PRN (19:28)
[2019-12-26] MEDS: ENOXAPARIN SODIUM 40 MG/0.4 ML SYRG SC SCH (20:34)
[2019-12-26] MEDS: TAMSULOSIN HCL 0.4 MG CAP.SR.24H PO SCH (20:45)
[2019-12-26] MEDS ORDERED: levETIRAcetam 500 MG TABLET PO SCH (21:00)
[2019-12-27 06:47] LABS: Hematocrit 40.4 % (42.0-52.0); Hemoglobin 13.4 gm/dL (13.5-18.0); Mean Cell Volume 95.7 fl (78-100); Mean Corpuscular Hemoglobin 31.8 pg (27-31); Mean Corpuscular Hgb Conc 33.2 g/dl (32-36); Mean Platelet Volume 9.4 fl (8-11.3); Neutrophil # 12.5 K/mm3 (1.3-6.0); Platelet Count 216 K/mm3 (150-450); Red Blood Count 4.22 M/mm3 (4.7-6.0); Red Cell Distribution Width 13.9 % (11.5-14.0); White Blood Count 14.9 K/mm3 (4.0-10.5)
[2019-12-27 07:04] LABS: Albumin * 2.8 gm/dl (3.4-5.0); Anion Gap 12.2 mmol/L (6.8-13.8); Bilirubin, Total 0.7 mg/dL (0.0-1.1); Ca. Corrected For Albumin 9.1 mg/dL (8.4-10.2); Calcium * 8.5 mg/dL (7.9-10.9); Carbon Dioxide 25.1 mmol/L (24-32.6); Potassium 4.3 mmol/L (3.4-4.6); Total Protein 6.1 gm/dL (6.2-8.2)
[2019-12-27] MEDS: ASPIRIN 81 MG TAB.CHEW PO SCH (08:37)
[2019-12-27] MEDS: FINASTERIDE 5 MG TABLET PO SCH (08:37)
[2019-12-27] MEDS ORDERED: FLU VACC QS2020-21(6MOS UP)/PF 60 MCG/0.5 ML SYRINGE IM ONE (09:00)
[2019-12-27] MEDS ORDERED: LISINOPRIL 20 MG TABLET PO SCH (09:00)
[2019-12-27] MEDS ORDERED: HYDROCHLOROTHIAZIDE 12.5 MG CAPSULE PO SCH (09:00)
[2019-12-27] MEDS ORDERED: levETIRAcetam 500 MG TABLET PO ONE (11:45)
[2019-12-27] MEDS ORDERED: ALBUTEROL SULFATE 2.5 MG/0.5 ML VIAL.NEB IH PRN (13:31)
--- NOTE | 2019-12-27 14:57 | PN ---
Subjective - Date and Time Seen Date: 12/27/19 Time: 10:00 Subjective Narrative: Mak Kaminski woke up this morning and is confused and a bit combative. He pulled both of his IVs out. When I came in to see him he seemed to recognize who I was but did not remember my name. When I asked him questions some answers were appropriate and others were not. He refused breakfast this morning. He does not appear to be in any distress this morning. I discussed Reji's condition with his daughter [place] and she says that he is confused most of the time and probably should have been in a fpc 2 years ago. Because of cousins that help out around their house he has been able to stay at home. I think they are going to try home health first but most likely he will end up in a fpc. His vital signs this morning are stable and he is afebrile. Lab: White count is up to 14,900 with 84% neutrophils. No bands are reported. Hemoglobin is 13.4 g which is down from 15.9 on admission. Platelets are normal. The electrolytes are okay except chloride is slightly elevated 108. The EGFR is up to 58 from 48. Glucose is 139. Lactic acid down to 2.2 from previous highs of 2.83.9 and 6.1 on admission. Total protein is 6.1 and down from admission of 7.5 and the albumin is low at 2.8 down from 3.7. Urinalysis shows some blood and protein and 2+ bacteria. His COVID-19 test on admission was not detected. Vital signs: Temperature 36.5, pulse is 64, BP is 116/54, respirations are 12 and unlabored, O2 saturation 93% on room air. The weight is 111.2 kg and stable with the other 2 measurements of 111.3 and 110.6. He is not feeling very well today and has not eaten much. I will put a consult in for home health for him. [facility] and did say that they would not pay for the ambulance to bring him there. Family has decided to keep him here. Objective - Review of Systems Generalized/Overall Review: Reports: Weakness, Malaise EENTM: Reports: No Symptoms Reported Respiratory: Reports: No Symptoms Reported Cardiac: Reports: No Symptoms Reported Abdominal: Reports: No Symptoms Reported Genitourinary Symptoms: Reports: No Symptoms Reported Musculoskeletal Complaints: Reports: No Symptoms Reported Neurological: Reports: Weakness, Other - Poor balance, unable to walk this morning. Endocrine: Reports: No Symptoms Reported - Vitals Vitals: Last Vital Signs Temp 37.0 C 12/27/19 10:00 Pulse 68 12/27/19 14:10 Resp 20 12/27/19 14:10 BP 116/61 12/27/19 10:00 Pulse Ox 97 12/27/19 14:00 - Abnormal Lab Findings Abnormal Lab Findings: Abnormal Lab Results 12/26/19 12/26/19 12/26/19 Range/Units 14:30 14:30 14:30 WBC 12.6 H (4.0-10.5) K/mm3 RBC (4.7-6.0) M/mm3 Hgb (13.5-18.0) gm/dL Hct (42.0-52.0) % MCH 31.4 H (27-31) pg Immature Gran # (Auto) 0.05 H (0.000-0.0310) K/mm3 Neutrophils % 89.8 H (42-75.0) % Lymphocytes % 5.0 L (20-51) % Neutrophils # 11.3 H (1.3-6.0) K/mm3 Lymphocytes # 0.63 L (1.5-3.5) k/mm3 Chloride (97-106) mmol/L Carbon Dioxide 22.1 L (24-32.6) mmol/L Anion Gap 17.8 H (6.8-13.8) mmol/L Creatinine 1.49 H (0.4-1.4) mg/dL Est GFR (Non-Af Amer) 48 L (60-130) mL/min Random Glucose 186 H (70-110) mg/dL Lactic Acid, Venous 6.1 H* (0.4-2.0) mmol/L Alkaline Phosphatase (50-170) U/L Total Protein (6.2-8.2) gm/dL Albumin (3.4-5.0) gm/dl Urine Protein (NEGATIVE) mg/dL Urine Blood (NEGATIVE) /ul Prot Sulfosalicylic Acd (0) mg/dL Urine RBC (0-5) /hpf Ur Epithelial Cells (0-5) /hpf Amorphous Sediment (NONE-FEW) Urine Bacteria (NONE) Hyaline Casts (NONE) /LPF 12/26/19 12/26/19 12/26/19 Range/Units 14:37 18:22 21:46 WBC (4.0-10.5) K/mm3 RBC (4.7-6.0) M/mm3 Hgb (13.5-18.0) gm/dL Hct (42.0-52.0) % MCH (27-31) pg Immature Gran # (Auto) (0.000-0.0310) K/mm3 Neutrophils % (42-75.0) % Lymphocytes % (20-51) % Neutrophils # (1.3-6.0) K/mm3 Lymphocytes # (1.5-3.5) k/mm3 Chloride (97-106) mmol/L Carbon Dioxide (24-32.6) mmol/L Anion Gap (6.8-13.8) mmol/L Creatinine (0.4-1.4) mg/dL Est GFR (Non-Af Amer) (60-130) mL/min Random Glucose (70-110) mg/dL Lactic Acid, Venous 3.9 H* 2.8 H* (0.4-2.0) mmol/L Alkaline Phosphatase (50-170) U/L Total Protein (6.2-8.2) gm/dL Albumin (3.4-5.0) gm/dl Urine Protein 100 H (NEGATIVE) mg/dL Urine Blood 250 H (NEGATIVE) /ul Prot Sulfosalicylic Acd 3+ H (0) mg/dL Urine RBC 25-50 H (0-5) /hpf Ur Epithelial Cells 5-10 H (0-5) /hpf Amorphous Sediment Moderate - 2+ H (NONE-FEW) Urine Bacteria 2+ H (NONE) Hyaline Casts 0-5 H (NONE) /LPF 12/27/19 12/27/19 12/27/19 Range/Units 06:10 06:10 06:10 WBC 14.9 H (4.0-10.5) K/mm3 RBC 4.22 L (4.7-6.0) M/mm3 Hgb 13.4 L (13.5-18.0) gm/dL Hct 40.4 L (42.0-52.0) % MCH 31.8 H (27-31) pg Immature Gran # (Auto) 0.05 H (0.000-0.0310) K/mm3 Neutrophils % 84.0 H (42-75.0) % Lymphocytes % 10.2 L (20-51) % Neutrophils # 12.5 H (1.3-6.0) K/mm3 Lymphocytes # (1.5-3.5) k/mm3 Chloride 108 H (97-106) mmol/L Carbon Dioxide (24-32.6) mmol/L Anion Gap (6.8-13.8) mmol/L Creatinine (0.4-1.4) mg/dL Est GFR (Non-Af Amer) 58 L D (60-130) mL/min Random Glucose 139 H (70-110) mg/dL Lactic Acid, Venous 2.2 H* (0.4-2.0) mmol/L Alkaline Phosphatase 37 L (50-170) U/L Total Protein 6.1 L (6.2-8.2) gm/dL Albumin 2.8 L (3.4-5.0) gm/dl Urine Protein (NEGATIVE) mg/dL Urine Blood (NEGATIVE) /ul Prot Sulfosalicylic Acd (0) mg/dL Urine RBC (0-5) /hpf Ur Epithelial Cells (0-5) /hpf Amorphous Sediment (NONE-FEW) Urine Bacteria (NONE) Hyaline Casts (NONE) /LPF - EKG/Xray Findings EKG: atrial fibrillation EKG read: Interp. by me XRAY: chest Interpretation: Reviewed by me - Exam Constitutional: Present: Alert, Well developed, Well nourished, No distress, Elderly ENT Exam: Present: normal ENT inspection, hard of hearing Neck: Present: non-tender, limited range of motion Breasts: Present: Nontender Respiratory: Present: chest non-tender, lungs clear, normal breath sounds, no respiratory distress, no accessory muscle use Cardiovascular/Chest: Present: normal peripheral pulses, regular rate, rhythm, no chest tenderness, no edema, no gallop, no JVD, no murmur, no rub Abdomen: Present: Normal bowel sounds, soft, nontender, nondistended, no rebound tenderness, no hepatospenomegaly, no masses /Rectal: Present: Exam deferred Extremity: Present: normal range of motion, non-tender, normal inspection, no pedal edema, no calf tenderness, normal capillary refill Skin Exam: Present: normal color, warm/dry, no cyanosis Lymphatic: Present: no adenopathy Neurologic: Present: normal cerebellar test Appearance: Present: appropriate appearance, impaired insight, impaired recent memory, impaired remote memory Eye contact: Present: cooperative - None Thoughts: Present: normal thought pattern, no apparent hallucination Assessment/Plan Plan Narrative: 1. CBC CMP tomorrow morning 2. Progress activity as allowed 3. Place order for home health 4. Consider fpc placement 5. Increase Keppra 2000 mg twice daily 6. Leave the IVs out since he will just pull them out. 7. We decided not to transfer to the [place] - Problems/Diagnosis (1) Seizure Problem: Acute (2) Dementia Problem: Chronic Qualifiers: Dementia type: associated with alcoholism Dementia behavioral disturbance: without behavioral disturbance Qualified Code(s): F10.27 - Alcohol dependence with alcohol-induced persisting dementia (3) Weakness Problem: Chronic (4) Altered mental status Problem: Acute Qualifiers: Altered mental status type: stupor Qualified Code(s): R40.1 - Stupor (5) Acute kidney injury Problem: Acute (6) Tongue laceration Problem: Acute Qualifiers: Encounter type: subsequent encounter Qualified Code(s): S01.512D - Laceration without foreign body of oral cavity, subsequent encounter (7) Lactic acidosis Problem: Acute (8) Cirrhosis Problem: Chronic Qualifiers: Hepatic cirrhosis type: alcoholic cirrhosis Ascites presence: without ascites Qualified Code(s): K70.30 - Alcoholic cirrhosis of liver without ascites
[2019-12-27] MEDS: levETIRAcetam 500 MG TABLET PO SCH (20:42)
[2019-12-27] MEDS: ENOXAPARIN SODIUM 40 MG/0.4 ML SYRG SC SCH (20:42)
[2019-12-27] MEDS: HYDROCHLOROTHIAZIDE 12.5 MG CAPSULE PO SCH (20:42)
[2019-12-27] MEDS: TAMSULOSIN HCL 0.4 MG CAP.SR.24H PO SCH (20:43)
[2019-12-27] MEDS: LISINOPRIL 20 MG TABLET PO SCH (20:43)
[2019-12-27] MEDS ORDERED: NON-FORMULARY 1 DOSE DOSE (Lisinopril/Hydrochlorothiazide [Lisinopril-Hctz 20-12.5 Mg Tab] PO SCH (21:00)
[2019-12-28 07:00] LABS: Hematocrit 42.9 % (42.0-52.0); Hemoglobin 14.5 gm/dL (13.5-18.0); Mean Cell Volume 95.1 fl (78-100); Mean Corpuscular Hemoglobin 32.2 pg (27-31); Mean Corpuscular Hgb Conc 33.8 g/dl (32-36); Mean Platelet Volume 9.4 fl (8-11.3); Neutrophil # 6.7 K/mm3 (1.3-6.0); Neutrophil % 64.9 % (42-75.0); Platelet Count 215 K/mm3 (150-450); Red Blood Count 4.51 M/mm3 (4.7-6.0); Red Cell Distribution Width 13.9 % (11.5-14.0); White Blood Count 10.3 K/mm3 (4.0-10.5)
[2019-12-28 07:14] LABS: Albumin * 3.2 gm/dl (3.4-5.0); Anion Gap 9.5 mmol/L (6.8-13.8); BUN/Creatinine Ratio 13.2 (9.0-21.6); Bilirubin, Total 0.7 mg/dL (0.0-1.1); Ca. Corrected For Albumin 9.2 mg/dL (8.4-10.2); Calcium * 8.9 mg/dL (7.9-10.9); Carbon Dioxide 27.1 mmol/L (24-32.6); Potassium 3.6 mmol/L (3.4-4.6); Total Protein 6.5 gm/dL (6.2-8.2)
[2019-12-28] MEDS: THIAMINE HCL 100 MG TABLET PO SCH (08:05)
[2019-12-28] MEDS: ASPIRIN 81 MG TAB.CHEW PO SCH (08:05)
[2019-12-28] MEDS: levETIRAcetam 500 MG TABLET PO SCH ×2 (08:05→20:20)
[2019-12-28] MEDS: FINASTERIDE 5 MG TABLET PO SCH (08:05)
[2019-12-28] MEDS: HYDROCHLOROTHIAZIDE 12.5 MG CAPSULE PO SCH ×2 (08:12→20:20)
[2019-12-28] MEDS: LISINOPRIL 20 MG TABLET PO SCH ×2 (08:13→20:21)
--- NOTE | 2019-12-28 12:36 | PN ---
Subjective - Date and Time Seen Date: 12/28/19 Time: 09:15 Subjective Narrative: Reji has had a better night and is feeling pretty good this morning. He denies pain. He is much more alert and conversational this morning. He is appropriate on most things but there are still some signs of confusion. Nursing reports that he did walk with his walker to the bathroom and back this morning which is measurable improvement since he could hardly even stand up with 2 people assist yesterday. So he is much better this morning. His vital signs remained stable and he is afebrile. I will consider discharging him tomorrow. I will have physical therapy evaluate him in the morning. He falls a lot at home and they can assess his fall risk and independence level. I think he should go to [facility] to get some physical therapy. Lab today is stable generally improved. The white count has dropped back into normal range at 10,900. Objective - Review of Systems Generalized/Overall Review: Reports: No Symptoms Reported, Weakness EENTM: Reports: No Symptoms Reported Respiratory: Reports: No Symptoms Reported Cardiac: Reports: No Symptoms Reported Abdominal: Reports: No Symptoms Reported Genitourinary Symptoms: Reports: No Symptoms Reported Musculoskeletal Complaints: Reports: No Symptoms Reported Endocrine: Reports: No Symptoms Reported - Vitals Vitals: Last Vital Signs Temp 37.0 C 12/28/19 10:09 Pulse 56 L 12/28/19 10:09 Resp 20 12/28/19 10:09 BP 123/54 12/28/19 10:09 Pulse Ox 95 12/28/19 10:09 - Abnormal Lab Findings Abnormal Lab Findings: Abnormal Lab Results 12/28/19 12/28/19 Range/Units 06:45 06:45 RBC 4.51 L (4.7-6.0) M/mm3 MCH 32.2 H (27-31) pg Monocytes % 9.3 H (0.0-9) % Neutrophils # 6.7 H (1.3-6.0) K/mm3 Chloride 108 H (97-106) mmol/L AST 51 H (0-48) U/L Alkaline Phosphatase 35 L (50-170) U/L Albumin 3.2 L (3.4-5.0) gm/dl - Exam Constitutional: Present: Alert, Oriented x3, Cooperative, Well developed, Well nourished, Elderly, Obese ENT Exam: Present: normal ENT inspection, hearing grossly normal, pharynx normal, TMs normal Neck: Present: non-tender, limited range of motion Breasts: Present: Exam deferred Respiratory: Present: chest non-tender, lungs clear, normal breath sounds, no respiratory distress, no accessory muscle use Cardiovascular/Chest: Present: normal peripheral pulses, regular rate, rhythm, no chest tenderness, no edema, no gallop, no JVD, no murmur, no rub Abdomen: Present: Normal bowel sounds, soft, nontender, nondistended, no rebound tenderness, no hepatospenomegaly, no masses /Rectal: Present: Exam deferred, External genitalia normal Extremity: Present: normal range of motion, non-tender, normal inspection, no pedal edema, no calf tenderness, normal capillary refill Skin Exam: Present: normal color, warm/dry, no cyanosis Lymphatic: Present: no adenopathy Neurologic: Present: 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 Physical therapy evaluation tomorrow morning 2. Progress activity as tolerated 3. [facility] placement for physical therapy 4. Or home health for physical therapy. - Problems/Diagnosis (1) Seizure Problem: Acute (2) Dementia Problem: Chronic Qualifiers: Dementia type: associated with alcoholism Dementia behavioral disturbance: without behavioral disturbance Qualified Code(s): F10.27 - Alcohol dependence with alcohol-induced persisting dementia (3) Weakness Problem: Chronic (4) Altered mental status Problem: Acute Qualifiers: Altered mental status type: stupor Qualified Code(s): R40.1 - Stupor (5) Acute kidney injury Problem: Acute (6) Tongue laceration Problem: Acute Qualifiers: Encounter type: subsequent encounter Qualified Code(s): S01.512D - Laceration without foreign body of oral cavity, subsequent encounter (7) Lactic acidosis Problem: Acute (8) Cirrhosis Problem: Chronic Qualifiers: Hepatic cirrhosis type: alcoholic cirrhosis Ascites presence: without ascites Qualified Code(s): K70.30 - Alcoholic cirrhosis of liver without ascites
[2019-12-28] MEDS: ENOXAPARIN SODIUM 40 MG/0.4 ML SYRG SC SCH (20:18)
[2019-12-28] MEDS: TAMSULOSIN HCL 0.4 MG CAP.SR.24H PO SCH (20:19)
[2019-12-29 06:44] LABS: Hematocrit 43.3 % (42.0-52.0); Hemoglobin 14.3 gm/dL (13.5-18.0); Mean Cell Volume 95.2 fl (78-100); Mean Corpuscular Hemoglobin 31.4 pg (27-31); Mean Platelet Volume 9.3 fl (8-11.3); Neutrophil # 5.7 K/mm3 (1.3-6.0); Neutrophil % 60.8 % (42-75.0); Platelet Count 233 K/mm3 (150-450); Red Blood Count 4.55 M/mm3 (4.7-6.0); Red Cell Distribution Width 13.8 % (11.5-14.0); White Blood Count 9.3 K/mm3 (4.0-10.5)
[2019-12-29 06:59] LABS: Albumin * 2.9 gm/dl (3.4-5.0); BUN/Creatinine Ratio 13.5 (9.0-21.6); Bilirubin, Total 0.9 mg/dL (0.0-1.1); Ca. Corrected For Albumin 9.7 mg/dL (8.4-10.2); Calcium * 9.1 mg/dL (7.9-10.9); Total Protein 6.4 gm/dL (6.2-8.2)
[2019-12-29] MEDS: ASPIRIN 81 MG TAB.CHEW PO SCH (10:16)
[2019-12-29] MEDS: levETIRAcetam 500 MG TABLET PO SCH (10:16)
[2019-12-29] MEDS: FINASTERIDE 5 MG TABLET PO SCH (10:16)
[2019-12-29] MEDS: LISINOPRIL 20 MG TABLET PO SCH (10:16)
[2019-12-29] MEDS: HYDROCHLOROTHIAZIDE 12.5 MG CAPSULE PO SCH (10:16)
[2019-12-29] MEDS: THIAMINE HCL 100 MG TABLET PO SCH (10:17)
--- NOTE | 2019-12-29 11:40 | DS ---
(1) Seizure Problem: Acute (2) Dementia Problem: Chronic Qualifiers: Dementia type: associated with alcoholism Dementia behavioral disturbance: without behavioral disturbance Qualified Code(s): F10.27 - Alcohol dependence with alcohol-induced persisting dementia (3) Weakness Problem: Chronic (4) Altered mental status Problem: Resolved Qualifiers: Altered mental status type: stupor Qualified Code(s): R40.1 - Stupor (5) Tongue laceration Problem: Acute Qualifiers: Encounter type: subsequent encounter Qualified Code(s): S01.512D - Laceration without foreign body of oral cavity, subsequent encounter (6) Lactic acidosis Problem: Resolved (7) Cirrhosis Problem: Chronic Qualifiers: Hepatic cirrhosis type: alcoholic cirrhosis Ascites presence: without ascites Qualified Code(s): K70.30 - Alcoholic cirrhosis of liver without ascites (8) Acute renal insufficiency Problem: Resolved (9) Dehydration Problem: Resolved Date of Discharge:: 12/29/19 Hospital Course: Patient is a 79-year-old white male with past medical history significant for seizure disorder, alcohol abuse, cirrhosis of liver and previous CVA, per daughter began with altered mental status/confusion yesterday. Today, they heard a "thud" in the room which patient was in. When they arrived in the room patient was unconscious without any witnessed seizure behavior. Loss of consciousness was short-lived the patient was even more confused than he had been yesterday. It is unknown as to if he hit his head or suffered any injuries. Patient did have some blood around his mouth and was vomiting upon arrival. Further details unable to be obtained from the patient. He can express some of his needs and does follow commands briefly but then quickly forgets and acts confused again. I have taken care of the patient in the hospital previously and this is not an unusual presentation or condition for him. Compliance with medications and drinking is unknown at this time. His speech is somewhat slurred, but he does make coherent statements at times. I do not believe he suffered a stroke. Patient arrived at our ER via EMS. Blood sugars were tested and were of no concern he tested at 172 here in our ER. Further history by daughter: She states that he has not had any alcohol to drink for at least a year. He has been rather wheezy all summer long but no treatment of this. She said it actually been doing fairly well most of the summer, just became more confused yesterday and even worse today. When they found him in his room he did have blood around his mouth, no active seizing but definitely more confused and unable to speak coherently. At the time of my exam he is obtunded. Some is due to being postictal and some is due to receiving IV Ativan. He has not responsive to me verbally or tactilely. He has bilateral expiratory wheezes and prolonged expiratory phase. He will need to be admitted and reassessed tomorrow morning with new lab. Will allow him to wake up. The levetiracetam level is not going to be available probably till Sunday. Sunday morning he was unable to stand with 2 people assisting. Sunday he was able to walk to the bathroom with his walker and back although slowly and with some instability. Today he is walked to physical therapy and negotiated stairs and is walking with a walker in a much more secure fashion. He is significantly improved and back to his mental baseline as well. His thought processing and responses are slow but appropriate this morning. Sunday he was nonverbal and send a he was verbal but minimally conversational. Today he is conversational. If he had not improved he would be going to alf. Since he has improved he will be going home with home health. His disposition is improved. His prognosis is fair. [id number] for home health: Mak Kaminski is a 79-year-old male who has physical and mental disabilities. He is homebound because he is unable to physically leave the home without assistance. He is ambulatory with his walker but has fallen multiple times recently. He was in the hospital for a seizure disorder and had come to the hospital in a postictal state. He had another seizure while he was here. He has been evaluated by physical therapy and has and they have recommended continued physical therapy. The need for physical therapy is for limb strengthening, improving balance, decreasing fall risk, and gait training. The need for alf is to monitor for seizure activity, monitor medications and compliance, education regarding seizures and how alcohol affects that, and monitoring of vital signs. The need for occupational therapy is to improve ADLs , upper body coordination and strengthening, improvement in safety awareness. 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 The need for home health care skilled services is directly related to the time spent [id number] with the person. Procedures Performed: none Health Concerns: Alcoholism Results and Findings: Pending Mircobiology Results 12/26/19 16:25 Blood Blood Culture - Preliminary NO GROWTH AFTER 48 HOURS 12/26/19 14:30 Blood Blood Culture - Preliminary NO GROWTH AFTER 48 HOURS Lab Pending Results 12/26/19 14:00: SARS-CoV-2 (PCR) Not detected 12/26/19 14:30: WBC 12.6 H, RBC 5.06, Hgb 15.9, Hct 48.2, MCV 95.3, MCH 31.4 H, MCHC 33.0, RDW 13.8, Plt Count 249, MPV 9.0, Immature Gran % (Auto) 0.40, Immature Gran # (Auto) 0.05 H, Neutrophils % 89.8 H, Lymphocytes % 5.0 L, Monocytes % 4.6, Eosinophils % 0.0, Basophils % 0.2, Nucleated RBC % 0.0, Neutrophils # 11.3 H, Lymphocytes # 0.63 L, Monocytes # 0.6, Eosinophils # 0.0, Absolute Basophils 0.0 12/26/19 14:30: Sodium 140, Plasma Sodium 141, Potassium 3.9, Chloride 104, Carbon Dioxide 22.1 L, Anion Gap 17.8 H, BUN 14, Creatinine 1.49 H, Est GFR (Non-Af Amer) 48 L, BUN/Creatinine Ratio 9.4, Random Glucose 186 H, Calcium 9.3, Calcium Adj for Albumin 9.2, Total Bilirubin 0.6, AST 29, ALT 23, Alkaline Phosphatase 52, Troponin I 0.029, Total Protein 7.5, Albumin 3.7, Ethyl Alcohol Less than 3.0 12/26/19 14:30: Ammonia Less than 17.0 12/26/19 14:30: C-Reactive Prot, Quant 0.7 12/26/19 14:30: Lactic Acid, Venous 6.1 H* 12/26/19 14:37: Urine Color Yellow, Urine Appearance Cloudy, Urine pH 5.0, Ur Specific [place] >=1.030, Urine Protein 100 H, Urine Glucose (UA) Negative, Urine Ketones 5, Urine Blood 250 H, Urine Nitrate Negative, Urine Bilirubin Negative, Prot Sulfosalicylic Acd 3+ H, Urine Urobilinogen Normal, Ur Leukocyte Esterase Negative, Urine RBC 25-50 H, Urine WBC 0-5, Ur Epithelial Cells 5-10 H, Amorphous Sediment Moderate - 2+ H, Urine Bacteria 2+ H, Hyaline Casts 0-5 H, Urine Culture Comments No culture indicated 12/26/19 14:37: Urine Opiates Screen Negative, Barbiturate Screen Negative, Ur Phencyclidine Scrn Negative, Urine Amphetamine Negative, U Benzodiazepines Scrn Negative, Urine Cocaine Screen Negative, Urine Marijuana (THC) Negative 12/26/19 18:22: Lactic Acid, Venous 3.9 H* 12/26/19 21:46: Lactic Acid, Venous 2.8 H* 12/27/19 06:10: WBC 14.9 H, RBC 4.22 L, Hgb 13.4 L, Hct 40.4 L, MCV 95.7, MCH 31.8 H, MCHC 33.2, RDW 13.9, Plt Count 216, MPV 9.4, Immature Gran % (Auto) 0.30, Immature Gran # (Auto) 0.05 H, Neutrophils % 84.0 H, Lymphocytes % 10.2 L, Monocytes % 5.4, Eosinophils % 0.0, Basophils % 0.1, Nucleated RBC % 0.0, Neutrophils # 12.5 H, Lymphocytes # 1.52, Monocytes # 0.8, Eosinophils # 0.0, Absolute Basophils 0.0 12/27/19 06:10: Sodium 141, Plasma Sodium 142, Potassium 4.3, Chloride 108 H, Carbon Dioxide 25.1, Anion Gap 12.2, BUN 14, Creatinine 1.27, Est GFR (Non-Af Amer) 58 L D, BUN/Creatinine Ratio 11.0, Random Glucose 139 H, Calcium 8.5, Calcium Adj for Albumin 9.1, Total Bilirubin 0.7, AST 37, ALT 22, Alkaline Phosphatase 37 L, Total Protein 6.1 L, Albumin 2.8 L 12/27/19 06:10: Lactic Acid, Venous 2.2 H* 12/28/19 06:45: WBC 10.3 D, RBC 4.51 L, Hgb 14.5, Hct 42.9, MCV 95.1, MCH 32.2 H, MCHC 33.8, RDW 13.9, Plt Count 215, MPV 9.4, Immature Gran % (Auto) 0.30, Immature Gran # (Auto) 0.03, Neutrophils % 64.9, Lymphocytes % 24.3, Monocytes % 9.3 H, Eosinophils % 0.7, Basophils % 0.5, Nucleated RBC % 0.0, Neutrophils # 6.7 H, Lymphocytes # 2.49, Monocytes # 1.0, Eosinophils # 0.1, Absolute Basophils 0.1 12/28/19 06:45: Sodium 141, Plasma Sodium 141, Potassium 3.6, Chloride 108 H, Carbon Dioxide 27.1, Anion Gap 9.5, BUN 14, Creatinine 1.06, Est GFR (Non-Af Amer) 72 D, BUN/Creatinine Ratio 13.2, Random Glucose 102, Calcium 8.9, Calcium Adj for Albumin 9.2, Total Bilirubin 0.7, AST 51 H, ALT 31, Alkaline Phosphatase 35 L, Total Protein 6.5, Albumin 3.2 L 12/29/19 06:30: WBC 9.3, RBC 4.55 L, Hgb 14.3, Hct 43.3, MCV 95.2, MCH 31.4 H, MCHC 33.0, RDW 13.8, Plt Count 233, MPV 9.3, Immature Gran % (Auto) 0.30, Immature Gran # (Auto) 0.03, Neutrophils % 60.8, Lymphocytes % 23.8, Monocytes % 10.8 H, Eosinophils % 3.5 H, Basophils % 0.8, Nucleated RBC % 0.0, Neutrophils # 5.7, Lymphocytes # 2.21, Monocytes # 1.0, Eosinophils # 0.3, Absolute Basophils 0.1 12/29/19 06:30: Sodium 140, Plasma Sodium 140, Potassium 4.0, Chloride 105, Carbon Dioxide 27.0, Anion Gap 12.0, BUN 15, Creatinine 1.11, Est GFR (Non-Af Amer) 68, BUN/Creatinine Ratio 13.5, Random Glucose 107, Calcium 9.1, Calcium Adj for Albumin 9.7, Total Bilirubin 0.9, AST 42, ALT 30, Alkaline Phosphatase 42 L, Total Protein 6.4, Albumin 2.9 L 12/29/19 06:30: Lactic Acid, Venous 1.3 Discharge Location: Home Disposition: Home Health Service [facility] Agency: [facility] Home Health Condition: Fair Face to Face Encounter completed per [facility] Guidelines: Yes Discharge Activity: Activity as tolerated Discharge Diet: General/regular food, Other - No alcohol Additional Patient Instructions (free text): Has [facility] HH ongoing, please call and fax discharge information to them. Complete Home Medications List: Complete Home Medication List: ascorbic acid (vitamin C) 500 mg tablet 500 mg PO DAILY 03/15/18 multivitamin,dv-[id number] 1 tab PO DAILY 03/15/18 Aspirin [Aspirin Chewable] 81 mg PO DAILY 12/30/18 finasteride 5 mg tablet 5 mg PO DAILY #90 tab 06/23/19 oxybutynin chloride 10 mg tablet,extended release 24 hr 10 mg PO DAILY #90 tab 06/23/19 Lisinopril/Hydrochlorothiazide [Lisinopril-Hctz 20-12.5 mg Tab] 1 ea PO BID 12/26/19 levETIRAcetam [Keppra] 1,000 mg PO BID 12/26/19 Hydrochlorothiazide [Microzide] 12.5 mg PO DAILY #30 cap 12/29/19 Lisinopril [Zestril] 20 mg PO BID #60 tab 12/29/19 Tamsulosin HCl [Flomax] 0.4 mg PO HS #30 cap.sr.24h 12/29/19 Thiamine HCl [Vitamin B-1] 100 mg PO DAILY #100 tab 12/29/19 levETIRAcetam [Keppra] 1,000 mg PO BID #120 tab 12/29/19 Forms: Patient Portal Registration
[2019-12-29] MEDS ORDERED: FLU VACC QS2020-21(6MOS UP)/PF 60 MCG/0.5 ML SYRINGE IM ONE (13:45)
[2019-12-29 13:54] VITALS: BP 120/81
== END 2019-12-29 14:30 | disposition home health service (06) | DRG 101 ==
LOC: ER 13:56 → MS 17:37
PROVIDERS: ADMIT Family Medicine; ATTEND Family Medicine
DX: Z23 Encounter for immunization; F10.97 Alcohol use, unspecified with alcohol-induced persisting dementia; K70.30 Alcoholic cirrhosis of liver without ascites; R53.1 Weakness; Z11.59 Encounter for screening for other viral diseases; I47.1 Supraventricular tachycardia; E87.2 Acidosis; Z86.73 Personal history of transient ischemic attack (TIA), and cerebral infarction without residual deficits; N30.01 Acute cystitis with hematuria; Z91.81 History of falling; I48.91 Unspecified atrial fibrillation; G40.909 Epilepsy, unspecified, not intractable, without status epilepticus; S01.512A Laceration without foreign body of oral cavity, initial encounter; R06.2 Wheezing